=== PATIENT | female | born 1985 | race Caucasian/White ===

== ENCOUNTER 2023-01-29 13:39 | Outpatient (OUT) | payer BC, SELFPAY ==
[2023-01-30 06:15] LABS: HBsAg Screen Negative (Negative); HCV Antibody Non Reactive (Non Reactive); HIV Ab/p24 Ag Screen Non Reactive (Non Reactive); HSV 1 IgG, Type Spec <0.91 index (0.00-0.90); HSV 2 IgG, Type Spec <0.91 index (0.00-0.90)
[2023-01-30 12:09] LABS: Rapid Plasma Reagin, Quant Non Reactive (NonRea<1:1)
== END 2023-01-29 13:40 | disposition home or self-care (01) ==
PROVIDERS: PCP Family Medicine; Visit Provider Obstetrics & Gynecology
DX: Z20.2 Contact with and (suspected) exposure to infections with a predominantly sexual mode of transmission (principal)
CPT/HCPCS: 36415; 86592; 86695; 86696; 86803; 87340; 87389

== ENCOUNTER 2024-01-13 20:06 | Outpatient (REF) | payer BC, SELFPAY ==
[2024-01-20 16:10] LABS: Age Gdln ACOG Testing Note (.); HPV Aptima Positive (Negative); IGP, Aptima HPV, rfx 16/18,45 Note (.)
== END 2024-01-13 20:07 | disposition home or self-care (01) ==
LOC: LAB 20:06
PROVIDERS: PCP Family Medicine; Visit Provider Obstetrics & Gynecology
DX: Z01.419 Encounter for gynecological examination (general) (routine) without abnormal findings (principal)
CPT/HCPCS: 87624; 88175

== ENCOUNTER 2024-01-27 14:45 | Outpatient (OUT) | payer BC, SELFPAY ==
--- OUTSIDE RECORDS SUMMARY | 2024-01-27 15:10 | XMS_ITS | CCD ---
Author Organization [facility] Care Team Providers Care Trade Analyst Name Role Phone Salome Laughlin Unavailable Unavailable Salome Laughlin Unavailable Unavailable Mirian Ponce Unavailable Unavaila veronica Laughlin, Salome Delgado Attending Unavailable Kris, Mirian Landaverde Primary Care Unavaila Salome Vaz Attending Unavailable Mirian Ponce Primary Care Unavaila ble KODI, DR CAMERON Admitting Unavailable KARASIK, DR CAMERON Consulting Unavailable KARASIK, DR CAMERON Attending Unavailable PONCE, DR MIRIAN Ruiz Primary Care Unavailable KARASIK, DR CAMERON Consulting Unavailable KARASIK, DR CAMERON Attending Unavailable KARASIK, DR CAMERON Admitting Unavailable PONCE, DR MIRIAN Ruiz Primary Care Unavailable KARASIK, DR CAMERON Consulting Unavailable KARASIK, DR CAMERON Attending Unavailable KARASIJesica, DR CAMERON Admitting Unavailable KRIS, DR MIRIAN Ruiz Primary Care Unavailable KRIS, DR MIRIAN Ruiz Primary Care Unavailable ALLIE, DR ADAMARIS Wang Admitting Unavailable ALLIE, DR ADAMARIS Wang Consulting Unavailable ALLIE, DR ADAMARIS Wang Attending Unavailable Marielos Vega Attending Unavailable Mirian Ponce Unavailable MD Mirian Ponce Attending Provider Mirian Ponce Attending Unavailable Mirian Ponce Primary Care Unavailable Mirian Ponce Admitting Unavailable QUINN PAULSON Attending Unavailable Allergies Allergy Classification Reported Allergen(s) Allergy Type Date of Onset Reaction(s) Facility (1 source) No Known Medication Allergies; Translations: [No Known Medication Allergies] Propensity to adverse reactions (disorder) [facility] Repository Medications Current Medications Medication Drug Class(es) Dates Sig (Normalized) Sig (Original) fluconazole 150 mg oral tablet (1 source) Azole Antifungal take 1 tablet by mouth once Fluconazole 150 MG 1 tablet Orally once for 1 days Active levothyroxine sodium 0.05 mg oral tablet (2 sources) l-Thyroxine take 1 tablet by mouth every twenty-four hours Levothyroxine Sodium 50 MCG 1 tablet Orally Once a day for 90 days Active Susanna (2 sources) Susanna Active Problems Active Problems Problem Classification Problem Date Documented Date Episodic/Chronic Asthma (3 sources) Unspecified asthma, uncomplicated; Translations: [Exacerbation of intermittent asthma] Onset: 04-10-2021 Chronic Contraceptive and procreative management (2 sources) Surveillance of oral contraception done; Translations: [Encounter for surveillance of contraceptive pills] Episodic Hemorrhage during ; abruptio placenta; placenta previa (5 sources) Hemorrhage in early , unspecified; Translations: [Threatened miscarriage] Onset: 07-31-2017 Episodic Other complications of (2 sources) Supervision of high risk with poor obstetric history; Translations: [Supervision of with other poor reproductive or obstetric history, unspecified trimester] Episodic Other female genital disorders (2 sources) History of recurrent miscarriage - not ; Translations: [Recurrent loss] Episodic Other injuries and conditions due to external causes (2 sources) History of fall; Translations: [History of falling] Episodic Other nutritional; endocrine; and metabolic disorders (6 sources) Obese class II; Translations: [Body mass index (BMI) 37.0-37.9, adult] Onset: 10-30-2018 Resolved: 08-07-2020 Chronic Other and delivery including normal (8 sources) test positive; Translations: [Encounter for test, result positive] Onset: 11-16-2013 Resolved: 04-22-2018 Episodic Other upper respiratory infections (6 sources) Acute maxillary sinusitis; Translations: [Acute maxillary sinusitis, unspecified] Onset: 08-13-2016 Resolved: 07-23-2019 Episodic Residual codes; unclassified (2 sources) Complication occurring during ; Translations: [Personal history of other complications of , childbirth and the puerperium] Episodic Residual codes; unclassified (2 sources) Gestation period, 36 weeks; Translations: [36 weeks gestation of ] Episodic Residual codes; unclassified (2 sources) History of uterine scar from previous surgery; Translations: [History of uterine scar from previous surgery] Episodic Spontaneous (4 sources) Miscarriage without complication; Translations: [Complete or unspecified spontaneous without complication] Episodic Thyroid disorders (7 sources) Hypothyroidism, unspecified; Translations: [Hypothyroidism] Onset: 07-31-2017 Chronic Unclassified (2 sources) Encounter for fertility testing / Z31.41(ICD-10) Onset: 06-20-2017 Unclassified (1 source) Female infertility, unspecified / N97.9(ICD-10) Onset: 06-20-2017 Unclassified (1 source) Preg care for patient w recurrent preg loss, unsp trimester Onset: 08-14-2017 Unclassified (1 source) Oth disrd of amniotic fluid and membrns, first tri, unsp Onset: 08-14-2017 Unclassified (2 sources) abnormal result; Translations: [Other nonspecific abnormal finding] Unclassified (1 source) Encounter for screening for infections with a predominantly sexual mode of transmission; Translations: [Encounter for screening for infections with a predominantly sexual mode of transmission] Onset: 01-08-2023 Viral infection (4 sources) Verruca vulgaris; Translations: [Viral wart, unspecified] Onset: 03-11-2013 Resolved: 01-24-2021 Episodic Past or Other Problems Problem Classification Problem Date Documented Date Episodic/Chronic Allergic reactions (4 sources) Contact dermatitis; Translations: [Unspecified contact dermatitis due to other agents] Onset: 01-22-2017 Resolved: 07-22-2019 Episodic Bacterial infection; unspecified site (2 sources) Bacterial infectious disease; Translations: [Bacterial infection, unspecified, in conditions classified elsewhere and of unspecified site] Onset: 08-13-2016 Resolved: 07-22-2019 Episodic Cancer of cervix (2 sources) Cervicovaginal cytology: Low grade squamous intraepithelial lesion; Translations: [Low grade squamous intraepithelial lesion on cytologic smear of cervix (LGSIL)] Resolved: 09-01-2018 Episodic Diabetes mellitus without complication (2 sources) Abnormal glucose level; Translations: [Other abnormal glucose] Resolved: 04-22-2018 Episodic Diseases of mouth; excluding dental (4 sources) Diseases of lips; Translations: [DISEASES OF LIPS] Onset: 04-08-2021 Episodic Female infertility (2 sources) Female infertility; Translations: [Female infertility, unspecified] Resolved: 08-07-2020 Chronic Immunizations and screening for infectious disease (4 sources) Encounter for screening for human papillomavirus (HPV); Translations: [Sexually transmitted infectious disease] Onset: 01-31-2022 Resolved: 04-22-2018 Episodic Menstrual disorders (2 sources) Irregular periods; Translations: [Irregular menstrual cycle] Onset: 08-28-2006 Resolved: 08-03-2015 Chronic Other aftercare (1 source) Other ui developer (current) drug therapy; Translations: [OTH CONTACT ASSEMBLER CURRENT DRUG THERAPY] Onset: 04-10-2021 Episodic Other complications of (2 sources) Anemia of ; Translations: [Anemia complicating , second trimester] Resolved: 04-22-2018 Chronic Other complications of (2 sources) Diseases of the respiratory system complicating , third trimester; Translations: [Diseases of the respiratory system complicating , third trimester] Resolved: 04-22-2018 Episodic Other complications of (2 sources) Spotting per vagina in ; Translations: [Spotting complicating , unspecified trimester] Resolved: 04-22-2018 Episodic Other complications of (2 sources) Maternal care for excessive growth, unspecified trimester, not applicable or unspecified; Translations: [Maternal care for excessive growth, unspecified trimester, not applicable or unspecified] Resolved: 04-22-2018 Episodic Other complications of (4 sources) High risk ; Translations: [Supervision of high risk , unspecified, second trimester] Resolved: 04-22-2018 Episodic Other complications of (2 sources) care for patient with recurrent loss, third trimester; Translations: [ care for patient with recurrent loss, third trimester] Resolved: 04-22-2018 Episodic Other nutritional; endocrine; and metabolic disorders (2 sources) Morbid obesity; Translations: [Morbid (severe) obesity due to excess calories] Resolved: 05-06-2018 Chronic Other nutritional; endocrine; and metabolic disorders (2 sources) Obesity; Translations: [Obesity, unspecified] Resolved: 08-07-2020 Chronic Other screening for suspected conditions (not mental disorders or infectious disease) (8 sources) Encounter for screening for malignant neoplasm of cervix; Translations: [Urine test negative] Onset: 01-29-2022 Resolved: 07-22-2019 Episodic Other upper respiratory disease (2 sources) Allergic rhinitis; Translations: [Allergic rhinitis, unspecified] Resolved: 08-07-2020 Chronic Polyhydramnios and other problems of amniotic cavity (2 sources) Other specified disorders of amniotic fluid and membranes, first trimester, not applicable or unspecified; Translations: [Other specified disorders of amniotic fluid and membranes, first trimester, not applicable or unspecified] Resolved: 04-22-2018 Episodic Residual codes; unclassified (2 sources) Gestation period, 34 weeks; Translations: [34 weeks gestation of ] Resolved: 04-22-2018 Episodic Residual codes; unclassified (2 sources) Gestation period, 37 weeks; Translations: [37 weeks gestation of ] Resolved: 03-04-2018 Episodic Residual codes; unclassified (2 sources) Gestation period, 15 weeks; Translations: [15 weeks gestation of ] Resolved: 01-20-2018 Episodic Residual codes; unclassified (2 sources) Gestation period, 30 weeks; Translations: [30 weeks gestation of ] Resolved: 01-20-2018 Episodic Residual codes; unclassified (2 sources) Gestation period, 38 weeks; Translations: [38 weeks gestation of ] Resolved: 04-22-2018 Episodic Skin and subcutaneous tissue infections (4 sources) Abscess of axilla; Translations: [Cutaneous abscess of left axilla] Resolved: 08-07-2020 Episodic Spondylosis; intervertebral disc disorders; other back problems (2 sources) Low back pain; Translations: [Lumbago] Onset: 08-03-2015 Resolved: 07-22-2019 Episodic Unclassified (1 source) Encounter for fertility testing; Translations: [Encounter for fertility testing] Onset: 06-20-2017 Unclassified (2 sources) Contraception care education done; Translations: [General counseling for prescription of oral contraceptives] Onset: 02-08-2008 Results Test Name Value Interpretation Reference Range Facility Chlamydia/GC Amplificationon 01-08-2023 Chlamydia Trachomotis, ELOISE Negative Normal Negative [facility] Comment on above: Order Comment: SOURC E OF SPECIMEN: ORANGE APTIMA Performed By: #### G CCHLAMAMP, PAP [id number] #### [facility] , Neisseria Gonorrhoeae, ELOISE Negative Normal Negative [facility] Comment on above: Order Comment: SOURC E OF SPECIMEN: ORANGE APTIMA Result Comment: Perf ormed at: =G - [facility] [address] [id number] Global Engineering Manager: Pam Moss MD, Phone: [phone] PERFORMED BY: [facility] [address] [place] [address] PATHOLOGIST ROTATIONAL MOULDING OPERATOR LICO LARA M.D. Performed By: #### G CCHLAMAMP, PAP [id number] #### [facility] , IGP,Aptima HPV,Age Gdlnon PAP HPV Aptima Negative Normal Negative [facility] Comment on above: Order Comment: JAYCOB CTION TECHNIQUE:: BROOM-ALONE GYNOCOLOGICAL BODY SITE:: CERVIX ENDOCERVIX Result Comment: This nucleic acid amplification test detects fourteen high- risk HPV types (16,18,31,33,35,39,45,51,52,56,58,59,66,68) without differentiation. PERFORMED BY: [facility] [place]he[place] [address] PATHOLOGIST ROTATIONAL MOULDING OPERATOR LICO LARA M.D. Performed By: #### Concepcion CCHLAMAMP, PAP [id number] #### [facility] , Pap Image Guided Note Normal . [facility] Comment on above: Order Comment: JAYCOB CTSHAMA TECHNIQUE:: BROOM-ALONE GYNOCOLOGICAL BODY SITE:: CERVIX ENDOCERVIX Result Comment: TEST S RESULT FLAG UNITS REF RANGE LAB Clinician Provided Cytology Information Source.............Cervix;Endocervix No. of containers..01 ThinPrep Vial Age Algo ACOG Mar... FLAG LEGEND: L-Low Normal,H-High Normal,LL-Alert Low,HH-Alert High <-Panic Low,>-Panic High,A-Abnormal,AA-Critical Abnormal Performed at: 01 =G [facility] [place] [address] [place] [address] Pam Moss MD, Performed By: #### G CCHLAMAMP, PAP [id number] #### [facility] , Result Comment: TEST S RESULT FLAG UNITS REF RANGE LAB DIAGNOSIS: 02 NEGATIVE FOR INTRAEPITHELIAL LESION OR MALIGNANCY. FUNGAL ORGANISMS MORPHOLOGICALLY CONSISTENT WITH LETI SPECIES ARE PRESENT. Specimen adequacy: 02 Satisfactory for evaluation. No endocervical component is identified. Performed by: Beth Child, Packing Inspector ([facility]) . 02 Note: Note 02 The Pap smear is a screening test designed to aid in the detection of premalignant and malignant conditions of the uterine cervix. It is not a diagnostic procedure and should not be used as the sole means of detecting cervical cancer. Both false-positive and false-negative reports do occur. Test Methodology: Note 02 This liquid based ThinPrep(R) pap test was screened with the use of an image guided system. FLAG LEGEND: L-Low Normal,H-High Normal,LL-Alert Low,HH-Alert High <-Panic Low,>-Panic High,A-Abnormal,AA-Critical Abnormal Performed at: 02 WB [facility] [place] [address] [place], [place] [address] Pam Moss MD, THYR STIM IMMUNOGLOBULINon 1 Thyroid Sim Immunoglobulin <0.10 Normal 0.00-0.55 [facility] Comment on above: Performed By: #### T 3TOTAL #### [facility] [address] [place] [address] Dr. Maxwell Allen T3, TOTAL (TRIIODOTHYRONINE) on 03-19-2022 T3, TOTAL 119 ng/dL Normal 71-180 [facility] Comment on above: Performed By: #### T 3TOTAL #### [facility] [address] [place] [address] Dr. Maxwell Allen FREE T4on 03-18-2022 Free T4 [Mass/Vol] 0.96 ng/dL Normal 0.76-1.46 [facility] Comment on above: Performed By: #### F T4 #### [facility] [address] [place] [address] Dr. Maxwell Allen T4on 03-18-2022 T4 [Mass/Vol] 9.20 ug/dL Normal 4.80-13.90 [facility] Comment on above: Performed By: #### T 4, TSH #### [facility] [address] [place] [address] Dr. Maxwell Allen TSHon 03-18-2022 TSH 1.950 uIU/mL Normal 0.358-3.740 [facility] Comment on above: Performed By: #### T 4, TSH #### [facility] [address] [place] [address] Dr. Maxwell Allen THYROID-STIMULATING IMMUNOGL OBULINon 02-11-2022 Thyroid Sim Immunoglobulin <0.10 Normal 0.00-0.55 [facility] Comment on above: Performed By: #### T NAVA #### [facility] [address] [place] [address] Dr. Maxwell Allen T3, TOTAL (TRIIODOTHYRONINE) on 02-09-2022 T3, TOTAL 116 ng/dL Normal 71-180 [facility] Comment on above: Performed By: #### T 3TOTAL #### [facility] [address] [address] [address] Maxwell Allen T4 LABCORPon 02-09-2022 T4 [Mass/Vol] 7.8 ug/dL Normal 4.5-12.0 [facility] Comment on above: Performed By: #### T 4LC #### [facility] [address] [place] [address] Dr. Maxwell Allen FREE T4on 02-08-2022 Free T4 [Mass/Vol] 0.85 ng/dL Normal 0.76-1.46 [facility] Comment on above: Performed By: #### F T4 #### [facility] [address] [place] [address] Dr. Maxwell Allen TSHon 02-08-2022 TSH 4.142 uIU/mL Critically high 0.358-3.740 [facility] Comment on above: Performed By: #### T 3TOTAL #### [facility] [address] [place] [address] Dr. Maxwell Allen PAP ACOG PANEL 2: 30 to 65on 02-04-2022 . . Normal [facility] Comment on above: Result Comment: Perf ormed at: WB Performed By: #### [id number] #### [facility] [address] [place] [address] Dr. Maxwell Allen Age Gdln ACOG Testing 30-65 Normal [facility] Comment on above: Performed By: #### [id number] #### [facility] [address] [place] [address] Dr. Maxwell Allen DIAGNOSIS: Comment Normal [facility] Comment on above: Result Comment: NEGA TIVE FOR INTRAEPITHELIAL LESION OR MALIGNANCY. Performed at: WB Performed By: #### [id number] #### [facility] [address] [place] [address] Dr. Maxwell Allen HPV Aptima Negative Normal Negative [facility] Comment on above: Result Comment: This nucleic acid amplification test detects fourteen high-risk HPV types (16,18,31,33,35,39,45,51,52,56,58,59,66,68) without differentiation. Performed at: =G Performed By: #### 4 [id number] #### [facility] [address] [place] [address] Dr. Maxwell Allen Methodology: Comment Normal [facility] Comment on above: Result Comment: This liquid based ThinPrep(R) pap test was screened with the use of an image guided system. Performed at: WB Performed By: #### [id number] #### [facility] [address] [place] [address] Dr. Maxwell Allen Note: Comment Normal [facility] Comment on above: Result Comment: The Pap smear is a screening test designed to aid in the detection of premalignant and malignant conditions of the uterine cervix. It is not a diagnostic procedure and should not be used as the sole means of detecting cervical cancer. Both false-positive and false-negative reports do occur. . Performed at: WB Performed By: #### 4 [id number] #### [facility] [address] [place] [address] Dr. Maxwell Allen Performed by: Comment Normal [facility] Comment on above: Result Comment: Loreto Hayden, Packing Inspector ([facility]) Performed at: WB Performed By: #### 4 [id number] #### [facility] [address] [place] [address] Dr. Maxwell Allen Specimen adequacy: Comment Normal [facility] Comment on above: Result Comment: Sati sfactory for evaluation. Endocervical and/or squamous metaplastic cells (endocervical component) are present. Performed at: WB Performed By: #### [id number] #### [facility] [address] [place] [address] Dr. Maxwell Allen CBC AUTO DIFFon 04-08-2021 BASO # 0.1 103/ul Normal 0.0-0.1 [facility] Comment on above: Performed By: #### T 3TOTAL #### [facility] [address] [place] [address] Dr. Maxwell Allen Basophils/100 WBC (Bld) 0.5 % Normal 0.2-2.0 [facility] Comment on above: Performed By: #### T 3TOTAL #### [facility] [address] [place] [address] Dr. Maxwell Allen EO # 0.2 103/ul Normal 0.0-0.7 [facility] Comment on above: Performed By: #### T 3TOTAL #### [facility] [address] [place] [address] Dr. Maxwell Allen Eosinophils/100 WBC (Bld) 1.3 % Normal 0.9-7.0 [facility] Comment on above: Performed By: #### T 3TOTAL #### [facility] [address] [place] [address] Dr. Maxwell Allen Erythrocyte distribution width (RBC) [Ratio] 14.7 % Normal 11.0-15.0 [facility] Comment on above: Performed By: #### T 3TOTAL #### [facility] [address] [place] [address] Dr. Maxwell Allen Hematocrit (Bld) [Volume fraction] 38.1 % Normal 36.0-48.0 [facility] Comment on above: Performed By: #### T 3TOTAL #### [facility] [address] [place] [address] Dr. Maxwell Allen Hemoglobin (Bld) [Mass/Vol] 11.8 g/dL Critically low 12.0-16.0 [facility] Comment on above: Performed By: #### T 3TOTAL #### [facility] [address] [place] [address] Dr. Maxwell Allen IG # 0.03 10e3/ul Normal 0.00-0.03 [facility] Comment on above: Performed By: #### T 3TOTAL #### [facility] [address] [place] [address] Dr. Maxwell Allen IG % 0.3 % Normal 0.0-0.5 [facility] Comment on above: Performed By: #### T 3TOTAL #### [facility] [address] [place] [address] Dr. Maxwell Allen LYMPH # 1.5 103/ul Normal 1.2-3.8 [facility] Comment on above: Performed By: #### T 3TOTAL #### [facility] [address] [address] [address] Maxwell Allen Lymphocytes/100 WBC (Bld) 13.0 % Critically low 20.5-60.0 [facility] Comment on above: Performed By: #### T 3TOTAL #### [facility] [address] [address] [address] Maxwell Allen MANUAL DIFF REQ NO Normal [facility] Comment on above: Performed By: #### T 3TOTAL #### [facility] [address] [place] [address] Dr. Maxwell Allen MCH (RBC) [Entitic mass] 25.2 pg Critically low 26.7-34.0 [facility] Comment on above: Performed By: #### T 3TOTAL #### [facility] [address] [place] [address] Dr. Maxwell Allen MCHC (RBC) [Mass/Vol] 31.0 g/dL Normal 29.9-35.2 [facility] Comment on above: Performed By: #### T 3TOTAL #### [facility] [address] [place] [address] Dr. Maxwell Allen MCV (RBC) [Entitic vol] 81.2 fL Normal 81.0-99.0 [facility] Comment on above: Performed By: #### T 3TOTAL #### [facility] [address] [place] [address] Dr. Maxwell Allen MONO # 1.0 103/ul Critically high 0.3-0.8 [facility] Comment on above: Performed By: #### T 3TOTAL #### [facility] [address] [place] [address] Dr. Maxwell Allen Monocytes/100 WBC (Bld) 8.7 % Normal 1.7-12.0 [facility] Comment on above: Performed By: #### T 3TOTAL #### [facility] [address] [place] [address] Dr. Maxwell Allen NEUT # 8.5 103/ul Critically high 1.4-6.5 [facility] Comment on above: Performed By: #### T 3TOTAL #### [facility] [address] [address] [address] Maxwell Allen Neutrophils/100 WBC (Bld) 76.2 % Critically high 43.0-75.0 [facility] Comment on above: Performed By: #### T 3TOTAL #### [facility] [address] [address] [address] Maxwell Allen Platelet mean volume (Bld) [Entitic vol] 9.6 fL Normal 9.5-13.5 [facility] Comment on above: Performed By: #### T 3TOTAL #### [facility] [address] [place] [address] Dr. Maxwell Allen PLT 267 103/ul Normal 150-450 [facility] Comment on above: Performed By: #### T 3TOTAL #### [facility] [address] [place] [address] Dr. Maxwell Allen RBC 4.69 106/ul Normal 4.20-5.40 [facility] Comment on above: Performed By: #### T 3TOTAL #### [facility] [address] [address] [address] Maxwell Allen WBC 11.2 103/ul Critically high 4.0-11.0 [facility] Comment on above: Performed By: #### T 3TOTAL #### [facility] [address] [place] [address] Dr. Maxwell Allen CULTURE BLOODon 04-08-2021 Microscopic examination of blood, culture Culture Observations: NO GROWTH AT 5 DAYS. Normal [facility] Comment on above: Performed By: #### B [id number] #### [facility] [address] [place] [address] Dr. Maxwell Allen PROF 14(COMP METB)on 021 Albumin [Mass/Vol] 3.5 g/dL Normal 3.5-5.0 [facility] Comment on above: Performed By: #### T 3TOTAL #### [facility] [address] [place] [address] Dr. Maxwell Allen Albumin/Globulin [Mass ratio] 0.9 {ratio} Normal [facility] Comment on above: Performed By: #### T 3TOTAL #### [facility] [address] [place] [address] Dr. aMxwell Allen ALP [Catalytic activity/Vol] 59 U/L Normal 38-126 [facility] Comment on above: Performed By: #### T 3TOTAL #### [facility] [address] [place] [address] Dr. Maxwell Allen ALT [Catalytic activity/Vol] 31 U/L Normal 9-52 [facility] Comment on above: Performed By: #### T 3TOTAL #### [facility] [address] [place] [address] Dr. Maxwell Allen Anion gap [Moles/Vol] 10.6 mmol/L Normal [facility] Comment on above: Performed By: #### T 3TOTAL #### [facility] [address] [place] [address] Dr. Maxwell Allen AST [Catalytic activity/Vol] 14 U/L Normal 14-36 [facility] Comment on above: Performed By: #### T 3TOTAL #### [facility] [address] [place] [address] Dr. Maxwell Allen Bilirubin [Mass/Vol] 0.5 mg/dL Normal 0.2-1.3 [facility] Comment on above: Performed By: #### T 3TOTAL #### [facility] [address] [place] [address] Dr. Maxwell Allen Calcium [Mass/Vol] 8.9 mg/dL Normal 8.4-10.2 [facility] Comment on above: Performed By: #### T 3TOTAL #### [facility] [address] [place] [address] Dr. Maxwell Allen Chloride [Moles/Vol] 103 mmol/L Normal 98-107 [facility] Comment on above: Performed By: #### T 3TOTAL #### [facility] [address] [place] [address] Dr. Maxwell Allen CO2 [Moles/Vol] 27.2 mmol/L Normal 22.0-30.0 [facility] Comment on above: Performed By: #### T 3TOTAL #### [facility] [address] [address] [address] Maxwell Allen Creatinine [Mass/Vol] 0.72 mg/dL Normal 0.52-1.04 [facility] Comment on above: Performed By: #### T 3TOTAL #### [facility] [address] [address] [address] Maxwell Allen EGFR-AF LUXEMBOURGER >60 Normal >=60 [facility] Comment on above: Performed By: #### T 3TOTAL #### [facility] [address] [address] [address] Maxwell Allen EGFR-NON AF LUXEMBOURGER >60 Normal >=60 [facility] Comment on above: Performed By: #### T 3TOTAL #### [facility] [address] [place] [address] Dr. Maxwell Allen Globulin (S) [Mass/Vol] 3.9 g/dL Normal [facility] Comment on above: Performed By: #### T 3TOTAL #### [facility] [address] [address] [address] Maxwell Allen Glucose [Mass/Vol] 122 mg/dL Critically high 74-[address] [facility] Comment on above: Performed By: #### T 3TOTAL #### [facility] [address] [place] [address] Dr. Maxwell Allen Potassium [Moles/Vol] 3.8 mmol/L Normal 3.4-5.0 [facility] Comment on above: Performed By: #### T 3TOTAL #### [facility] [address] [address] [address] Maxwell Allen Protein [Mass/Vol] 7.4 g/dL Normal 6.1-8.2 [facility] Comment on above: Performed By: #### T 3TOTAL #### [facility] [address] [address] [address] Maxwell Allen Sodium [Moles/Vol] 137 mmol/L Normal 137-145 [facility] Comment on above: Performed By: #### T 3TOTAL #### [facility] [address] [place], [place] [address] Dr. Maxwell Allen Urea nitrogen [Mass/Vol] 10.0 mg/dL Normal 7.0-17.0 [facility] Comment on above: Performed By: #### T 3TOTAL #### [facility] [address] [place], [place] [address] Dr. Maxwell Allen Urea nitrogen/Creatinine [Mass ratio] 13.9 mg/mg Normal [facility] Comment on above: Performed By: #### T 3TOTAL #### [facility] [address] [place], [place] [address] Dr. Maxwell Allen TSHon 07-31-2017 Thyrotropin Qn 2.88 m[IU]/L Normal 0.44 - 3.98 [facility] Comment on above: Result Comment: TSH testing is performed using different testing methodology at [facility] than at other [facility]. Direct result comparisons should only be made within the same method. . Patients receiving more than 5 mg/day of biotin may have interference in test results. A sample should be taken no sooner than eight hours after previous dose. Contact [phone] for additional information. Performed By: #### T SH2 #### [facility] [address] [place] [address] Vital Signs Date Time Vital Sign Value Performing Clinician Facility 01-08-2023 10:00-0400 Body height 157.48 cm Mirian Ponce Other [facility] Other 01-08-2023 10:00-0400 Body mass index (BMI) [Ratio] 36.03 kg/m2 Mirian Ponce Other [facility] Other 01-08-2023 10:00-0400 Body weight 89.36 kg Mirian Ponce Other [facility] Other 01-08-2023 10:00-0400 Diastolic blood pressure 72 mm[Hg] Mirian Ponce Other [facility] Other 01-08-2023 10:00-0400 Systolic blood pressure 128 mm[Hg] Mirian Ponce Other [facility] Other Encounters Encounter Date Encounter Type Care Provider Facility Start: 01-13-2024 End: 01-13-2024 ambulatory QUINN PAULSON Not Available Start: 01-30-2023 End: 01-30-2023 ambulatory Mirian Ponce Other [facility] Other Start: 01-30-2023 Telephone encounter Mirian Ponce [facility] Start: 01-08-2023 Encounter for genera l adult medical examination without abnormal findings Mirian Ponce [facility] Start: 01-08-2023 Encounter for gynecological examination (general) (routine) without abnormal findings Mirian Ponce [facility] Start: 01-08-2023 Periodic preventive med est patient 18-39 yrs Mirian Ponce [facility] Start: 01-08-2023 End: 01-08-2023 ambulatory Mirian Ponce [facility] Other Start: 01-08-2023 End: 01-08-2023 Departed Referred MD Mirian Ponce Work Phone: [facility] Work Phone: Start: 01-07-2023 ambulatory Marielos Vega Facility: [facility] Start: 12-10-2022 ambulatory Marielos Vega Facility:[facility] Start: 03-18-2022 End: 03-19-[address] NISHA MARIEE Facility:[facility] Start: 02-08-2022 End: 02-09-[address] NISHA MARIEE Facility:[facility] Start: 01-29-2022 End: 01-29-[address] NISHA MARIEE Facility:[facility] Start: 01-29-2022 Gynecological examin ation normal Mirian Ponce Other [facility] Other Start: 04-08-2021 End: 04-08-[address] MIRIAN PONCE Facility:[facility] Start: 01-22-2021 Adult health examination Johanny Ponce Other [facility] Other Start: 08-14-2017 Patient encounter procedure Salome Laughlin Facility:[facility] Travis Machado Start: 07-31-2017 Patient encounter procedure Salome Laughlin Facility:[facility] Ary Jeannette Start: 06-20-2017 Ambulatory Salome Laughlin Facil ity:[facility] Procedures Date Procedure Procedure Detail Performing Clinician Start: 02-08-2008 Contraception care education Mirian Ponce Other End: 04-22-2018 screening Mirian Ponce Other Counseling Mirian Ponce Other End: 08-07-2020 Depression screening Mirian Ponce Other Family planning education Barry Ponce Other End: 05-06-2018 visit Mirian Ponce Other Plan of Treatment Date Care Activity Detail Author Start: 01-08-2023 [facility] Human papilloma viru s 16+18+31+33+35+39+45+51+52+56+58 +59+66+68 DNA [Presence] in Cervix by Probe with signal amplification [facility] Payers Date Payer Category Payer Self-pay 2022 Unknown [id number] 2019 Unknown [id number] 1984 Unknown [id number] .. [id number] 1984 Unknown [id number] 1984 Unknown [id number] 1984 Unknown [id number] 07.11.84 [id number] 1984 Unknown [id number] .. [id number] 1984 Unknown [id number] 2.16.84 [id number] 1984 Unknown [id number] 2.16.8 [id number] 1984 Unknown [id number] 2.16.84 [id number] Unknown [id number] Unknown [id number] 2.16.8 [id number] Social History Date Type Detail Facility Sex Assigned At [facility] Other Start: 1985 Sex Assigned At Female [facility] Evaluation note 01-08-2023 Note Date & Type Note Facility 01-08-2023 Evaluation note Encounter Date Diagnosis Assessment Notes Dec, Encounter for gynecological examination without abnormal finding (ICD-10 - Z01.419) Clinical impressions discussed. Monthly SBE advised along with yearly mammograms. Colon and osteoporosis screening reviewed and ordered if indicated (see preventative tab below). I will contact pt. with the results of her pap testing and arrange follow up based on the results. All questions answered to her satisfaction and patient sent home stable Dec, Screening for STD (sexually transmitted disease) (ICD-10 - Z11.3) Dec, Wellness examination (ICD-10 - Z00.00) [facility] Other Evaluation note Note Date & Type Note Facility [facility] Evaluation note Note Date & Type Note Facility Evaluation note No Information [facility] Other History general Narrative - Reported Note Date & Type Note Facility History general Narrative - Reported Type Medical History Adult hypothyroidism Medical History HPV in female Medical History Bronchitis Medical History Asthma, intermittent with acute exacerbation Medical History Acute URI Surgical History Hospitalization History SEE SURGICAL HX [facility] Other Summary Purpose Family History No Family History Records FoundNo Family History Records FoundNo Family History Records FoundNo Family History Records FoundNo Family History Records FoundNo Family History Records Found Advance Directives No Advanced Directives Records FoundNo Advanced Directives Records FoundNo Advanced Directives Records FoundNo Advanced Directives Records FoundNo Advanced Directives Records FoundNo Advanced Directives Records Found Additional Source Comments INFORMATION SOURCE (unrecogn ized section and content) DATE CREATED AUTHOR 11/17/2017 [facility] DATE CREATED AUTHOR AUTHOR'S ORGANIZ ATION 07/06/[address] [facility] DATE CREATED AUTHOR AUTHOR'S ORGANIZ ATION 03/24/2022 [facility] DATE CREATED AUTHOR AUTHOR'S ORGANIZ ATION 12/11/2022 Ru Major[facility] DATE CREATED AUTHOR AUTHOR'S ORGANIZ ATION 01/18/2023 [facility] DATE CREATED AUTHOR AUTHOR'S ORGANIZ ATION 01/14/2024 [facility] EPIC REASON FOR VISIT (unrecogniz ed section and content) Wellness/PAP ExamNo Informat ion Care Teams (unrecognized sec tion and content) Team Status: Inactive Member Role Status Dates Mirian Ponce MD Attending Provider Active Goals (unrecognized section and content) Goals may be documented in a n alternate section FOR RECORDS PERTAINING TO PATIENTS WHO ARE OR HAVE BEEN ENROLLED IN A CHEMICAL DEPENDENCY/SUBSTANCEABUSE PROGRAM, SOME INFORMATION MAY BE OMITTED. This clinical summary was aggregated from multiple sources. Caution should be exercised in using it in the provision of clinical care. This summary normalizes information from multiple sources, and as a consequence, information in this document may materially change the coding, format and clinical context of patient data. In addition, data may be omitted in some cases. CLINICAL DECISIONS SHOULD BE BASED ON THE PRIMARY CLINICAL RECORDS. [employer] provides no warranty or guarantee of the accuracy or completeness of information in this document.
[2024-01-28 05:09] LABS: HIV Ab/p24 Ag Screen Non Reactive (Non Reactive)
[2024-01-28 06:10] LABS: HBsAg Screen Negative (Negative)
[2024-01-28 11:09] LABS: Rapid Plasma Reagin, Quant Non Reactive titer (NonRea<1:1)
== END 2024-01-27 14:46 | disposition home or self-care (01) ==
LOC: LAB 14:45
PROVIDERS: PCP Family Medicine; Visit Provider Obstetrics & Gynecology
DX: Z20.2 Contact with and (suspected) exposure to infections with a predominantly sexual mode of transmission (principal)
CPT/HCPCS: 36415; 86592; 87340; 87389

== ENCOUNTER 2024-02-02 09:05 | Outpatient (REF) | payer BC, SELFPAY ==
--- OUTSIDE RECORDS SUMMARY | 2024-02-11 09:20 | XMS_ITS | CCD ---
Author Organization [facility] Care Team Providers Care Segment Block Layer Name Role Phone Salome Laughlin Unavailable Unavailable Salome Laughlin Unavailable Unavailable Mirian Ponce Unavailable Unavaila vreonica Laughlin, Salome Delgado Attending Unavailable Kris, Mirian Landaverde Primary Care Unavaila Salome Vaz Attending Unavailable Kris, Mirian Landaverde Primary Care Unavaila ble KARDEMETRIA, DR CAMERON Admitting Unavailable KARASIK, DR CAMERON Consulting Unavailable KARASIK, DR CAMERON Attending Unavailable PONCE, DR MIRIAN Ruiz Primary Care Unavailable KARASIK, DR CAMERON Consulting Unavailable KARASIK, DR CAMEORN Attending Unavailable KARASIK, DR CAMERON Admitting Unavailable PONCE, DR MIRIAN Ruiz Primary Care Unavailable KARASIK, DR CAMERON Consulting Unavailable KARASIK, DR CAMERON Attending Unavailable KARASIK, DR CAMERON Admitting Unavailable KRIS, DR MIRIAN Ruiz Primary Care Unavailable KRIS, DR MIRIAN Ruiz Primary Care Unavailable ALLIE, DR ADAMARIS Wang Admitting Unavailable ALLIE, DR ADAMARIS Wang Consulting Unavailable ALLIE, DR ADAMARIS Wang Attending Unavailable Marielos Vega Attending Unavailable Mirian Ponce Unavailable MD Mirian Ponce Attending Provider QUINN CANSECO Attending Unavailable QUINN CANSECO Attending Unavailable DO Quinn Canseco Attending Provider Quinn Canseco Attending Unavailable Quinn Canseco Admitting Unavailable Allergies Allergy Classification Reported Allergen(s) Allergy Type Date of Onset Reaction(s) Facility (1 source) No Known Medication Allergies; Translations: [No Known Medication Allergies] Propensity to adverse reactions (disorder) [facility] Repository Medications Current Medications Medication Drug Class(es) Dates Sig (Normalized) Sig (Original) fluconazole 150 mg oral tablet (1 source) Azole Antifungal take 1 tablet by mouth once Fluconazole 150 MG 1 tablet Orally once for 1 days Active levothyroxine sodium 0.05 mg oral tablet (4 sources) l-Thyroxine Start: 07-30-2023 End: 07-30-2023 take 50 ug by mouth once daily Levothyroxine Active 50 MCG PO Daily July 30, 2023 10:32am take 1 tablet by bebeto th every twenty-four hours Levothyroxine Sodium 50 MCG [...] abnormal result; Translations: [Other nonspecific abnormal finding] Viral infection (4 sources) Verruca vulgaris; Translations: [...] 08-03-2015 Chronic Other aftercare (1 source) 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; Translations: [OTH FDC CURRENT DRUG THERAPY] Onset: 04-10-2021 Episodic Other [...] Test Name Value Interpretation Reference Range Facility HBV surface Ag IA Qlon 01-26 Hepatitis B Surface Antigen Negative Negative [facility] Comment on above: Performed at: [employer] [address] [id number] Director: Christophe Moreno PhD, Phone: [phone] Performed at: [employer] [place] [address] [id number] Director: Christophe Moreno PhD, Phone: [phone] HIV 1 and HIV-2 antibody ass ay with HIV-1 p24 antigen detectionon 01-27-2024 HIV 1+2 Ab+HIV1 p24 Ag IA Ql Non-Reactive Non Reactive [facility] Comment on above: HIV-1/HIV-2 antibodi es and HIV-1 p24 antigen were NOTdetected. There is no laboratory evidence of HIV infection.HIV NegativePerformed at: [address] [id number] Director: Christophe Moreno PhD, Phone: [phone] No Panel Informationon 01-26 RPR Quantitative Confirmation Non Reactive titer NonRea<1:1 [facility] Comment on above: Please Note: This te st does not meet current guidelines forscreening and diagnosis of syphilis. This test isintended for following treatment response in patients beingtreated for syphilis infection. To screen for syphilisinfection, a reflex cascade that includes both RPR and atreponema-specific assay should be utilized, such asTreponema pallidum (Syphilis) Screening [place] (757113) orRapid Plasma Reagin (RPR) Test With Reflex to QuantitativeRPR and Confirmatory Treponema pallidum Antibodies(002426).Performed at: [address] [id number] Director: Christophe Moreno PhD, Phone: [phone] Human papilloma virus 16+18+ 31+33+35+39+45+51+52+56+58+59+66+68 DNA [Presence] in [place] 01-13-2024 HPV 16+18+31+33+35+39+45+ 51+52+56+58+59+66+68 DNA Probe+sig amp Ql (Cvx) Positive Abnormal Negative [facility] Comment on above: This nucleic acid am plification test detects fourteen high- risk HPV types (16,18,31,33,35,39,45,51,52,56,58,59,66,68)without differentiation.Performed at: =[address] [id number] Director: Pam Moss MD, Phone: [phone] at: [address] [id number] Director: Pam Moss MD, Phone: [phone] No Panel Informationon 01-12 HPV High Risk Other Comment Note Abnormal . [facility] Comment on above: TESTS RESULT FLAG UN ITS REF RANGE LAB D IAGNOSIS: [A] 02 EPITHELIAL CELL ABNORMALITY. ATYPICAL SQUAMOUS CELLS OF UNDETERMINED SIGNIFICANCE (ASC-US).Specimen adequacy: 02 Satisfactory for evaluation. Endocervical and/or squamous metaplastic cells (endocervical component) are present.Performed by: 03 Luis Tinajero, Dieing Out Machine Operator (ASCP)Electronically si... 02 Hanane Lares MD, Pathologist. 02Pathologist ICD10: 02 R87.610Note: Note 02 The Pap smear is a screening test designed to aid in the detection of premalignant and malignant conditions of the uterine cervix. It is not a diagnostic procedure and should not be used as the sole means of detecting cervical cancer. Both false-positive and false-negative reports do occur.Test Methodology: Note 02 This liquid based ThinPrep(R) pap test was screened with the use of an image guided system.HPV Genotype Reflex Note 02 Criteria not met, HPV Genotype not performed. ------ FLAG LEGEND: L-Low Normal,H-High Normal,LL-Alert Low,HH-Alert High <-Panic Low,>-Panic High,A-Abnormal,AA-Critical Abnormal ----Performed at:02 [facility] [address] [place] [address] Pam Moss MD, 03 [facility] [address] [place] [address] Michael Smith MD, Reference Lab Test Patient Age Note . [facility] Comment on above: TESTS RESULT FLAG UN ITS REF RANGE LAB Clinician Provided Cytology Information Source.............Cervix;Endocervix No. of containers..01 ThinPrep VialAge Algo ACOG Mar... FLAG LEGEND: L-Low Normal,H-High Normal,LL-Alert Low,HH-Alert High <-Panic Low,>-Panic High,A-Abnormal,AA-Critical Abnormal ----Performed at:01 =G [address] [address] Pam Moss MD, THYR STIM IMMUNOGLOBULINon 1 Thyroid Sim Immunoglobulin <0.10 Normal 0.00-0.55 [facility] Comment on above: Performed By: #### T 3TOTAL #### [facility] [address] [place], [place] [address] Dr. Maxwell Allen T3, TOTAL (TRIIODOTHYRONINE) on 03-19-2022 T3, TOTAL 119 ng/dL Normal 71-180 [facility] Comment on above: Performed By: #### T 3TOTAL #### [facility] [address] [place], [place] [address] Dr. Maxwell Allen FREE T4on 03-18-2022 Free T4 [Mass/Vol] 0.96 ng/dL Normal 0.76-1.46 [facility] Comment on above: Performed By: #### F T4 #### [facility] [address] [place] [address] Dr. Maxwell Allen T4on 03-18-2022 T4 [Mass/Vol] 9.20 ug/dL Normal 4.80-13.90 [facility] Comment on above: Performed By: #### T 4, TSH #### [facility] [address] [place] [address] Dr. Maxwell Allen TSHon 03-18-2022 TSH 1.950 uIU/mL Normal 0.358-3.740 [facility] Comment on above: Performed By: #### T 4, TSH #### [facility] [address] [place] [address] Dr. Maxwell Allen THYROID-STIMULATING IMMUNOGL OBULINon 02-11-2022 Thyroid Sim Immunoglobulin <0.10 Normal 0.00-0.55 [facility] Comment on above: Performed By: #### T NAVA #### [facility] [address] [place] [address] Dr. Maxwell Allen T3, TOTAL (TRIIODOTHYRONINE) on 02-09-2022 T3, TOTAL 116 ng/dL Normal 71-180 [facility] Comment on above: Performed By: #### T 3TOTAL #### [facility] [address] [place] [address] Dr. Maxwell Allen T4 LABCORPon 02-09-2022 T4 [Mass/Vol] 7.8 ug/dL Normal 4.5-12.0 [facility] Comment on above: Performed By: #### T 4LC #### [facility] [address] [place] [address] Dr. Maxwell Allen FREE T4on 02-08-2022 Free T4 [Mass/Vol] 0.85 ng/dL Normal 0.76-1.46 [facility] Comment on above: Performed By: #### F T4 #### [facility] [address] [place] [address] [address] Maxwell Allen TSHon 02-08-2022 TSH 4.142 uIU/mL Critically high 0.358-3.740 [facility] Comment on above: Performed By: #### T 3TOTAL #### [facility] [address] [place] [address] Dr. Maxwell Allen PAP ACOG PANEL 2: 30 to 65on 02-04-2022 . . Normal [facility] Comment on above: Result Comment: Perf ormed at: WB Performed By: #### 4 [id number] #### [facility] [address] [place] [address] Dr. Maxwell Allen Age Gdln ACOG Testing 30-65 [facility] Comment on above: Performed By: #### 4 [id number] #### [facility] [address] [place] [address] Dr. Maxwell Allen DIAGNOSIS: Comment Normal [facility] Comment on above: Result Comment: NEGA TIVE FOR INTRAEPITHELIAL LESION OR MALIGNANCY. Performed at: WB Performed By: #### 4 [id number] #### [facility] [address] [place] [address] Dr. Maxwell Allen HPV Aptima Negative Normal Negative [facility] Comment on above: Result Comment: This nucleic acid amplification test detects fourteen high-risk HPV types (16,18,31,33,35,39,45,51,52,56,58,59,66,68) without differentiation. Performed at: =G Performed By: #### 4 [id number] #### [facility] [address] [place] [address] Dr. Maxwell Allen Methodology: Comment [facility] Comment on above: Result Comment: This liquid based ThinPrep(R) pap test was screened with the use of an image guided system. Performed at: WB Performed By: #### 4 [id number] #### [facility] [address] [place] [address] Dr. Maxwell Allen Note: Comment Normal [facility] Comment on above: Result Comment: The Pap smear is a screening test designed to aid in the detection of premalignant and malignant conditions of the uterine cervix. It is not a diagnostic procedure and should not be used as the sole means of detecting cervical cancer. Both false-positive and false-negative reports do occur. . Performed at: WB Performed By: #### 4 [id number] #### [facility] [address] [place] [address] Dr. Maxwell Allen Performed by: Comment Normal [facility] Comment on above: Result Comment: Loreto Hayden, Dieing Out Machine Operator (ASCP) Performed at: WB Performed By: #### 4 [id number] #### [facility] [address] [place] [address] Dr. Maxwell Allen Specimen adequacy: Comment Normal [facility] Comment on above: Result Comment: Sati sfactory for evaluation. Endocervical and/or squamous metaplastic cells (endocervical component) are present. Performed at: WB Performed By: #### 4 [id number] #### [facility] [address] [place] [address] Dr. Maxwell Allen CBC AUTO DIFFon 04-08-2021 BASO # 0.1 103/ul Normal 0.0-0.1 [facility] Comment on above: Performed By: #### T 3TOTAL #### [facility] [address] [place] [address] Dr. Maxwell Allen Basophils/100 WBC (Bld) 0.5 % Normal 0.2-2.0 [facility] Comment on above: Performed By: #### T 3TOTAL #### [facility] [address] [place] [address] Dr. Maxwell Allen EO # 0.2 103/ul Normal 0.0-0.7 [facility] Comment on above: Performed By: #### T 3TOTAL #### [facility] [address] [place] [address] Dr. Maxwell Allen Eosinophils/100 WBC (Bld) 1.3 % Normal 0.9-7.0 [facility] Comment on above: Performed By: #### T 3TOTAL #### [facility] [address] [place] [address] Dr. Maxwell Allen Erythrocyte distribution width (RBC) [Ratio] 14.7 % Normal 11.0-15.0 [facility] Comment on above: Performed By: #### T 3TOTAL #### [facility] [address] [place] [address] Dr. Maxwell Allen Hematocrit (Bld) [Volume fraction] 38.1 % Normal 36.0-48.0 [facility] Comment on above: Performed By: #### T 3TOTAL #### [facility] [address] [place] [address] Dr. Maxwell Allen Hemoglobin (Bld) [Mass/Vol] 11.8 g/dL Critically low 12.0-16.0 [facility] Comment on above: Performed By: #### T 3TOTAL #### [facility] [address] [place] [address] Dr. Maxwell Allen IG # 0.03 10e3/ul Normal 0.00-0.03 [facility] Comment on above: Performed By: #### T 3TOTAL #### [facility] [address] [place] [address] Dr. Maxwell Allen IG % 0.3 % Normal 0.0-0.5 [facility] Comment on above: Performed By: #### T 3TOTAL #### [facility] [address] [place] [address] Dr. Maxwell Allen LYMPH # 1.5 103/ul Normal 1.2-3.8 [facility] Comment on above: Performed By: #### T 3TOTAL #### [facility] [address] [place] [address] Dr. Maxwell Allen Lymphocytes/100 WBC (Bld) 13.0 % Critically low 20.5-60.0 [facility] Comment on above: Performed By: #### T 3TOTAL #### [facility] [address] [place] [address] Dr. Maxwell Allen MANUAL DIFF REQ NO Normal [facility] Comment on above: Performed By: #### T 3TOTAL #### [facility] [address] [place] [address] Dr. Maxwell Allen MCH (RBC) [Entitic mass] 25.2 pg Critically low 26.7-34.0 [facility] Comment on above: Performed By: #### T 3TOTAL #### [facility] [address] [place] [address] Dr. Maxwell Allen MCHC (RBC) [Mass/Vol] 31.0 g/dL Normal 29.9-35.2 [facility] Comment on above: Performed By: #### T 3TOTAL #### [facility] [address] [place] [address] Dr. Maxwell Allen MCV (RBC) [Entitic vol] 81.2 fL Normal 81.0-99.0 [facility] Comment on above: Performed By: #### T 3TOTAL #### [facility] [address] [place] [address] Dr. Maxwell Allen MONO # 1.0 103/ul Critically high 0.3-0.8 [facility] Comment on above: Performed By: #### T 3TOTAL #### [facility] [address] [place] [address] Dr. Maxwell Allen Monocytes/100 WBC (Bld) 8.7 % Normal 1.7-12.0 [facility] Comment on above: Performed By: #### T 3TOTAL #### [facility] [address] [place] [address] Dr. Maxwell Allen NEUT # 8.5 103/ul Critically high 1.4-6.5 [facility] Comment on above: Performed By: #### T 3TOTAL #### [facility] [address] [place] [address] Dr. Maxwell Allen Neutrophils/100 WBC (Bld) 76.2 % Critically high 43.0-75.0 [facility] Comment on above: Performed By: #### T 3TOTAL #### [facility] [address] [place] [address] Dr. Maxwell Allen Platelet mean volume (Bld) [Entitic vol] 9.6 fL Normal 9.5-13.5 [facility] Comment on above: Performed By: #### T 3TOTAL #### [facility] [address] [place] [address] Dr. Maxwell Allen PLT 267 103/ul Normal 150-450 [facility] Comment on above: Performed By: #### T 3TOTAL #### [facility] [address] [place] [address] Dr. Maxwell Allen RBC 4.69 106/ul Normal 4.20-5.40 [facility] Comment on above: Performed By: #### T 3TOTAL #### [facility] [address] [place] [address] Dr. Maxwell Allen WBC 11.2 103/ul Critically high 4.0-11.0 [facility] Comment on above: Performed By: #### T 3TOTAL #### [facility] [address] [place] [address] Dr. Maxwell Allen CULTURE BLOODon 04-08-2021 Microscopic examination of blood, culture Culture Observations: NO GROWTH AT 5 DAYS. Normal [facility] Comment on above: Performed By: #### B [id number] #### [facility] [address] [place] [address] Dr. Maxwell Allen PROF 14(COMP METB)on 021 Albumin [Mass/Vol] 3.5 g/dL Normal 3.5-5.0 [facility] Comment on above: Performed By: #### T 3TOTAL #### [facility] [address] [place] [address] Dr. Maxwell Allen Albumin/Globulin [Mass ratio] 0.9 {ratio} Normal [facility] Comment on above: Performed By: #### T 3TOTAL #### [facility] [address] [place] [address] Dr. Maxwell Allen ALP [Catalytic activity/Vol] 59 U/L Normal 38-126 [facility] Comment on above: Performed By: #### T 3TOTAL #### [facility] [address] [place] [address] Dr. Maxwell Allen ALT [Catalytic activity/Vol] 31 U/L Normal 9-52 [facility] Comment on above: Performed By: #### T 3TOTAL #### [facility] [address] [place] [address] Dr. Maxwell Allen Anion gap [Moles/Vol] 10.6 mmol/L Normal [facility] Comment on above: Performed By: #### T 3TOTAL #### [facility] [address] [place] [address] [address] Maxwell Allen AST [Catalytic activity/Vol] 14 U/L Normal 14-36 [facility] Comment on above: Performed By: #### T 3TOTAL #### [facility] [address] [place] [address] [address] Maxwell Allen Bilirubin [Mass/Vol] 0.5 mg/dL Normal 0.2-1.3 [facility] Comment on above: Performed By: #### T 3TOTAL #### [facility] [address] [place] [address] Dr. Maxwell Allen Calcium [Mass/Vol] 8.9 mg/dL Normal 8.4-10.2 [facility] Comment on above: Performed By: #### T 3TOTAL #### [facility] [address] [place] [address] Dr. Maxwell Allen Chloride [Moles/Vol] 103 mmol/L Normal 98-107 [facility] Comment on above: Performed By: #### T 3TOTAL #### [facility] [address] [place] [address] Dr. Maxwell Allen CO2 [Moles/Vol] 27.2 mmol/L Normal 22.0-30.0 [facility] Comment on above: Performed By: #### T 3TOTAL #### [facility] [address] [place] [address] Dr. Maxwell Allen Creatinine [Mass/Vol] 0.72 mg/dL Normal 0.52-1.04 [facility] Comment on above: Performed By: #### T 3TOTAL #### [facility] [address] [place] [address] Dr. Maxwell Allen EGFR-AF NORWEGIAN >60 Normal >=60 [facility] Comment on above: Performed By: #### T 3TOTAL #### [facility] [address] [place] [address] Dr. Maxwell Allen EGFR-NON AF NORWEGIAN >60 Normal >=60 [facility] Comment on above: Performed By: #### T 3TOTAL #### [facility] [address] [place] [address] Dr. Maxwell Allen Globulin (S) [Mass/Vol] 3.9 g/dL Normal [facility] Comment on above: Performed By: #### T 3TOTAL #### [facility] [address] [place] [address] [address] Maxwell Allen Glucose [Mass/Vol] 122 mg/dL Critically high 74-106 [facility] Comment on above: Performed By: #### T 3TOTAL #### [facility] [address] [place] [address] Dr. Maxwell Allen Potassium [Moles/Vol] 3.8 mmol/L Normal 3.4-5.0 [facility] Comment on above: Performed By: #### T 3TOTAL #### [facility] [address] [place] [address] Dr. Maxwell Allen Protein [Mass/Vol] 7.4 g/dL Normal 6.1-8.2 [facility] Comment on above: Performed By: #### T 3TOTAL #### [facility] [address] [place] [address] Dr. Maxwell Allen Sodium [Moles/Vol] 137 mmol/L Normal 137-145 [facility] Comment on above: Performed By: #### T 3TOTAL #### [facility] [address] [place] [address] Dr. Maxwell Allen Urea nitrogen [Mass/Vol] 10.0 mg/dL Normal 7.0-17.0 [facility] Comment on above: Performed By: #### T 3TOTAL #### [facility] [address] [place] [address] Dr. Maxwell Allen Urea nitrogen/Creatinine [Mass ratio] 13.9 mg/mg Normal [facility] Comment on above: Performed By: #### T 3TOTAL #### [facility] [address] [place] [address] Dr. Maxwell Allen TSHon 07-31-2017 Thyrotropin Qn 2.88 m[IU]/L Normal 0.44 - 3.98 [facility] Comment on above: Result Comment: TSH testing is performed using different testing methodology at [facility] than at other [facility]. Direct result comparisons should only be made within the same method. . Patients receiving more than 5 mg/day of biotin may have interference in test results. A sample should be taken no sooner than eight hours after previous dose. Contact [phone] for additional information. Performed By: #### T SH2 #### [facility] [address] [place] [address] Vital Signs Date Time Vital Sign Value Performing Clinician Facility 01-08-2023 10:00-0400 Body height 157.48 cm Mirian Ponce [facility] [employer] Other 01-08-2023 10:00-0400 Body mass index (BMI) [Ratio] 36.03 kg/m2 Mirian Ponce [facility] [employer] Other 01-08-2023 10:00-0400 Body weight 89.36 kg Mirian Ponce [facility] [employer] Other 01-08-2023 10:00-0400 Diastolic blood pressure 72 mm[Hg] Mirian Ponce [facility] [employer] Other 01-08-2023 10:00-0400 Systolic blood pressure 128 mm[Hg] Mirian Ponce [facility] [employer] Other Encounters Encounter Date Encounter Type Care Provider Facility Start: 02-03-2024 End: 02-03-2024 ambulatory Quinn Canseco [facility] Work Phone: Start: 02-03-2024 End: 02-03-2024 Departed Referred DO Quinn Canseco Work Phone: [facility] Start: 02-02-2024 End: 02-02-2024 ambulatory QUINN AJITH Not Available Start: 01-27-2024 Non-patient / Non-visit DO Cor ey Ajith Work Phone: [facility] Physician [facility] [employer] Work Phone: Start: 01-13-2024 Non-patient / Non-visit DO Cor ey Ajith Work Phone: [facility] Physician [facility] [employer] Work Phone: Start: 01-13-2024 End: 01-13-2024 ambulatory QUINN AJITH Not Available Start: 01-30-2023 End: 01-30-2023 ambulatory Mirian Ponce Other [employer] Other Start: 01-30-2023 Telephone encounter Mirian Ponce [facility] Start: 01-08-2023 Encounter for genera l adult medical examination without abnormal findings Mirian Ponce [facility] Start: 01-08-2023 Encounter for gynecological examination (general) (routine) without abnormal findings Mirian Ponce [facility] Start: 01-08-2023 Periodic preventive med est patient 18-39 yrs Mirian Ponce [facility] Start: 01-08-2023 End: 01-08-2023 ambulatory Mirian Ponce [facility] [employer] Other Start: 01-08-2023 End: 01-08-2023 Departed Referred MD Mirian Ponce Work Phone: [facility] [place] Work Phone: Start: 01-07-2023 ambulatory Marielos L Silvia Facility: [facility] Start: 12-10-2022 ambulatory Marielos Silvia Facility:[facility] Start: 03-18-2022 End: 03-19-[address] NISHA MARIEE Facility:[facility] Start: 02-08-2022 End: 02-09-[address] NISHA MARIEE Facility:[facility] Start: 01-29-2022 End: 01-29-[address] NISHA MARIEE Facility:[facility] Start: 01-29-2022 Gynecological examin ation normal Mirian Ponce Other [employer] Other Start: 04-08-2021 End: 04-08-[address] MIRIAN PONCE Facility: Start: 01-22-2021 Adult health examination Johanny Ponce Other [employer] Other Start: 08-14-2017 Patient encounter procedure Salome Laughlin Facility:[facility] Start: 07-31-2017 Patient encounter procedure Salome Laughlin Facility:[facility] Start: 06-20-2017 Ambulatory Salome Laughlin Facil ity:[facility] [place] Procedures Date Procedure Procedure Detail Performing Clinician Start: 02-08-2008 Contraception care education Mirian Ponce Other End: 04-22-2018 screening Mirian Ponce Other Counseling Mirian Ponce Other End: 08-07-2020 Depression screening Mirian Ponce Other Family planning education Barry Ponce Other End: 05-06-2018 visit Mirian Ponce Other Plan of Treatment Date Care Activity Detail Author Start: 01-08-2023 [facility] Human papilloma viru s 16+18+31+33+35+39+45+51+52+56+58 +59+66+68 DNA [Presence] in Cervix by Probe with signal amplification [facility] Payers Date Payer Category Payer Self-pay 2022 Unknown [id number] 2019 Unknown [id number] 1985 Unknown [id number]. [id number] 1984 Unknown [id number] .16. [id number] 1984 Unknown [id number] .16.84 [id number] 1984 Unknown [id number] 2.16.84 [id number] 1984 Unknown [id number] 2.16.84 [id number] 1984 Unknown [id number] 2.16.84 [id number] 1984 Unknown [id number] 2.16.8 [id number] 1984 Unknown [id number] 2.16.84 [id number] 1984 Unknown [id number] 2.16.84 [id number] Unknown [id number] Unknown [id number] 2.16.8 [id number] Social History Date Type Detail Facility Sex Assigned At [employer] Other Start: 1985 Sex Assigned At Female F [facility] Evaluation note 01-08-2023 Note Date & [...] Z11.3) Dec, Wellness examination (ICD-10 - Z00.00) [employer] Other Evaluation note Note Date & Type Note Facility Evaluation note No assessment information [facility] Work Phone: Evaluation note Note Date & Type Note Facility Evaluation note No Information [facility] [employer] Other History general Narrative - Reported Note Date & Type Note Facility History general Narrative - Reported Type Medical History Adult hypothyroidism Medical History HPV in female Medical History Bronchitis Medical History Asthma, intermittent with acute exacerbation Medical History Acute URI Surgical History Hospitalization History SEE SURG[facility] [employer] Other Summary Purpose Family History No Family History Records Found Relationship Condition Age at Onset Recorded Date/T stacy father Diabetes mellitus Unknown Seizure disorder Unknown mother Hypertension Unknown Advance Directives No Advanced Directives Records Found Advance Directive Response Recorded Date/ Time Advance Directives No January 14, 2023 8:48am Additional Source Comments INFORMATION SOURCE (unrecogn ized section and content) DATE CREATED AUTHOR 11/17/2017 [facility] [place] DATE CREATED AUTHOR AUTHOR'S ORGANIZ ATION 07/06/2018 [facility] DATE CREATED AUTHOR AUTHOR'S ORGANIZ ATION 03/24/2022 [facility] DATE CREATED AUTHOR AUTHOR'S ORGANIZ ATION 12/11/2022 [facility] DATE CREATED AUTHOR AUTHOR'S ORGANIZ ATION 02/03/2024 [facility] DATE CREATED AUTHOR AUTHOR'S ORGANIZ ATION 02/05/2024 [facility] REASON FOR VISIT (unrecogniz ed section and content) Wellness/PAP ExamNo Informat ion Care Teams (unrecognized sec tion and content) Team Status: Inactive Member Role Status Dates Mirian Ponce MD Attending Provider Active Team Status: Active Member Role Status Dates Mirian Ponce MD Primary Care Provider Active Start: January 13, 2024 Quinn Canseco DO Attending Provider Active Start : January 13, 2024 Team Status: Active Member Role Status Dates Mirian Ponce MD Primary Care Provider Active Start: January 27, 2024 Quinn Canseco DO Attending Provider Active Start : January 27, 2024 Team Status: Inactive Member Role Status Dates Quinn Canseco DO Attending Provider Active Start : February 03, 2024 End: February 03, 2024 Goals (unrecognized section and content) Goals may [...] BE BASED ON THE PRIMARY CLINICAL RECORDS. [employer] [facility]. provides no warranty or guarantee of the accuracy or completeness of information in this document.
== END 2024-02-02 09:06 | disposition home or self-care (01) ==
LOC: LAB 09:05
PROVIDERS: PCP Family Medicine; Visit Provider Obstetrics & Gynecology
DX: R87.810 Cervical high risk human papillomavirus (HPV) DNA test positive (principal)
CPT/HCPCS: 88305

== ENCOUNTER 2024-03-13 10:11 | Outpatient (OUT) | payer BC, SELFPAY ==
--- OUTSIDE RECORDS SUMMARY | 2024-03-13 10:14 | XMS_ITS | CCD ---
Author Organization [facility] Care Team Providers Care Ice Cream Maker Name Role Phone Salome Laughlin Unavailable Unavailable [...] Ponce Unavailable MD Mirian Ponce Attending Provider [phone] QUINN CANSECO Attending Unavailable QUINN CANSECO Attending Unavailable DO Quinn Canseco Attending Provider Quinn Canseco Attending Unavailable Quinn Canseco Admitting Unavailable Allergies Allergy Classification Reported Allergen(s) Allergy Type Date of Onset Reaction(s) Facility (1 source) No Known Medication Allergies; Translations: [No Known Medication Allergies] Propensity to adverse reactions (disorder) [facility] Medications Current Medications Medication Drug Class(es) [...] 08-03-2015 Chronic Other aftercare (1 source) 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; Translations: [OTH ALF CURRENT DRUG THERAPY] Onset: 04-10-2021 Episodic Other [...] Test Name Value Interpretation Reference Range Facility [facility] 02-02-2024 L Specimen: [id number] Received: 02/04/24 Status: ARIES Bhatti Num: [id number] Spec Type: Surgical Subm Dr: Quinn Canseco Tissues: A Endocervix - Curettings (ECC) Procedures: HE/2, Gross/Micro L4 Age/ Patient Sex Location Account Attending Physician Graciela Salinas 38/F [facility] [id number] Quinn Canseco SPEC NUM: [id number] RECD: 02/04/24 STATUS: ARIES BHATTI NUM: [id number] ALESIA: 02/02/24- SUBM DR: Quinn Canseco ENTERED: 02/04/24-[address] [facility] [address]: Andrez,Lab SPEC TYPE: Surgical DEPT: ZHANNA RICHTER ENTERED BY: [id number] RECV BY: [id number] ORDERED: HE/2, Gross/Micro L4 ORDERED: HE2, Gross/Micro L4 Pathological Diagnosis Endocervix, curettage: Fibrinopurulent exudate, nondiagnostic. Clinical Information ASCUS HPV positive Gross Description Specimen was received in formalin with the patient's name and ECC and consists of a single loera portion of soft tissue measuring 0.6 cm in greatest dimension. The specimen is entirely submitted in cassette A1. CPT Codes 07788 ---- ---- Specimen: [id number] Received: 02/04/24-1216 Status: ARIES Bhatti Num: [id number] Spec Type: Surgical Subm Dr: Quinn Canseco Tissues: A Endocervix - Curettings (ECC) Procedures: DENAE/Lena, Gross/Micro L4 ---- Patient: BradGraciela [id number] (Continued) ---- Signed (signature on file) Brannon Huff MD 02/10/24 1507 Normal [facility] HBV surface Ag IA Qlon 01-26 Hepatitis B Surface Antigen Negative Negative [facility] Comment on above: Performed at: [facility] [address] [id number] Director: Christophe Moreno PhD, Phone: [phone] Performed at: [facility] [id number] Director: Christophe Moreno PhD, Phone: [phone] HIV 1 and HIV-2 antibody ass ay with HIV-1 p24 antigen detectionon 01-27-2024 HIV 1+2 Ab+HIV1 p24 Ag IA Ql Non-Reactive Non Reactive [facility] Comment on above: HIV-1/HIV-2 antibodi es and HIV-1 p24 antigen were NOTdetected. There is no laboratory evidence of HIV infection.HIV NegativePerformed at: [employer] [address] [id number] Director: Christophe Moreno PhD, Phone: [phone] No Panel Informationon 01-26 RPR Quantitative Confirmation Non Reactive titer NonRea<1:1 [facility] Comment on above: Please Note: This te st does not meet current guidelines forscreening and diagnosis of syphilis. This test isintended for following treatment response in patients beingtreated for syphilis infection. To screen for syphilisinfection, a reflex cascade that includes both RPR and atreponema-specific assay should be utilized, such asTreponema pallidum (Syphilis) Screening Drew (744592) orRapid Plasma Reagin (RPR) Test With Reflex to QuantitativeRPR and Confirmatory Treponema pallidum Antibodies(405505).Performed at: - [facility] [id number] Director: Christophe Moreno PhD, Phone: [phone] Human papilloma virus 16+18+ 31+33+35+39+45+51+52+56+58+59+66+68 DNA [Presence] in Lilia 01-13-2024 HPV 16+18+31+33+35+39+45+ 51+52+56+58+59+66+68 DNA Probe+sig amp Ql (Cvx) Positive Abnormal Negative [facility] Comment on above: This nucleic acid am plification test detects fourteen high- risk HPV types (16,18,31,33,35,39,45,51,52,56,58,59,66,68)without differentiation.Performed at: = - [facility] [id number] Director: Pam Moss MD, Phone: [phone] at: [facility] [id number] Director: Pam Moss MD, Phone: [phone] No Panel Informationon 01-12 HPV High Risk Other Comment Note Abnormal . [facility] Comment on above: TESTS RESULT FLAG UN ITS REF RANGE LAB D IAGNOSIS: [A] 02 EPITHELIAL CELL ABNORMALITY. ATYPICAL SQUAMOUS CELLS OF UNDETERMINED SIGNIFICANCE (ASC-US).Specimen adequacy: 02 Satisfactory for evaluation. Endocervical and/or squamous metaplastic cells (endocervical component) are present.Performed by: 03 Luis Tinajero, Facility Service Associate (ASCP)Electronically si... 02 aHnane Lares MD, Pathologist. 02Pathologist ICD10: 02 R87.610Note: [...] Low,>-Panic High,A-Abnormal,AA-Critical Abnormal ----Performed at:02 WB [facility] [address] [id number] Pam Moss MD, 03 [facility] [address] [address] [place] [address] Michael Smith MD, Reference Lab Test Patient Age Note . [facility] Comment on above: TESTS RESULT FLAG UN ITS REF RANGE LAB Clinician Provided Cytology Information Source.............Cervix;Endocervix No. of containers..01 ThinPrep VialAge Javier SANCHEZ Mar... 30-65 FLAG LEGEND: L-Low Normal,H-High Normal,LL-Alert Low,HH-Alert High <-Panic Low,>-Panic High,A-Abnormal,AA-Critical Abnormal ----Performed at:01 =G [facility] [address] Pam Moss MD, THYR STIM IMMUNOGLOBULINon 1 Thyroid Sim Immunoglobulin <0.10 Normal 0.00-0.55 [facility] Comment on above: Performed By: #### T 3TOTAL #### [facility] [address] [place] [address] Dr. Maxwell Allen T3, TOTAL (TRIIODOTHYRONINE) on 03-19-2022 T3, TOTAL 119 ng/dL Normal 71-180 [facility] Comment on above: Performed By: #### T 3TOTAL #### [facility] [address] [place] [address] Dr. Maxwell Allen FREE T4on 03-18-2022 Free T4 [Mass/Vol] 0.96 ng/dL Normal 0.76-1.46 [facility] Comment on above: Performed By: #### F T4 #### [facility] [address] [place] [address] Dr. Maxwell Allen T4on 03-18-2022 T4 [Mass/Vol] 9.20 ug/dL Normal 4.80-13.90 [facility] Comment on above: Performed By: #### T 4, TSH #### [facility] [address] [place] [address] Dr. Maxwell Allen TSHon 03-18-2022 TSH 1.950 uIU/mL Normal 0.358-3.740 [facility] Comment on above: Performed By: #### T 4, TSH #### [facility] [address] [place] [address] Dr. Maxwell Allen THYROID-STIMULATING IMMUNOGL OBULINon 02-11-2022 Thyroid Sim Immunoglobulin <0.10 Normal 0.00-0.55 [facility] Comment on above: Performed By: #### T NAVA #### [facility] [address] [place] [address] Dr. Maxwell Allen T3, TOTAL (TRIIODOTHYRONINE) on 02-09-2022 T3, TOTAL 116 ng/dL Normal 71-180 [facility] Comment on above: Performed By: #### T 3TOTAL #### [facility] [address] [place] [address] Dr. Maxwell Allen T4 LABCORPon 02-09-2022 T4 [Mass/Vol] 7.8 ug/dL Normal 4.5-12.0 [facility] Comment on above: Performed By: #### T 4LC #### [facility] [address] [place] [address] Dr. Maxwell Allen FREE T4on 02-08-2022 Free T4 [Mass/Vol] 0.85 ng/dL Normal 0.76-1.46 [facility] Comment on above: Performed By: #### F T4 #### [facility] [address] [place] [address] Dr. Maxwell Allen TSHon 02-08-2022 TSH 4.142 uIU/mL Critically high 0.358-3.740 [facility] Comment on above: Performed By: #### T 3TOTAL #### [facility] [address] [place] [address] Dr. Maxwell Allen PAP ACOG PANEL 2: 30 to 65on 02-04-2022 . . Normal [facility] Comment on above: Result Comment: Perf ormed at: WB Performed By: #### 4 [id number] #### [facility] [address] [place] [address] Dr. Maxwell Allen Age Gdln ACOG Testing 30-65 Normal [facility] Comment on above: Performed By: #### 4 [id number] #### [facility] [address] [place] [address] Dr. Maxwell Allen DIAGNOSIS: Comment Normal [facility] Comment on above: Result Comment: NEGA TIVE FOR INTRAEPITHELIAL LESION OR MALIGNANCY. Performed at: WB Performed By: #### 4 [id number] #### [facility] [address] [place] [address] Dr. Maxwell Allen HPV Aptima Negative Normal Negative [facility] Comment on above: Result Comment: This nucleic acid amplification test detects fourteen high-risk HPV types (16,18,31,33,35,39,45,51,52,56,58,59,66,68) without differentiation. Performed at: =G Performed By: #### 4 [id number] #### [facility] [address] [place] [address] Dr. Maxwell Allen Methodology: Comment Normal [facility] Comment on above: Result Comment: This liquid based ThinPrep(R) pap test was screened with the use of an image guided system. Performed at: WB Performed By: #### 4 [id number] #### [facility] [address] [place] [address] Dr. Maxwell Allen Note: Comment Normal [facility] Comment on above: Result Comment: The Pap smear is a screening test designed to aid in the detection of premalignant and malignant conditions of the uterine cervix. It is not a diagnostic procedure and should not be used as the sole means of detecting cervical cancer. Both false-positive and false-negative reports do occur. . Performed at: WB Performed By: #### 4 [id number] #### [facility] [address] [place] [address] Dr. Maxwell Allen Performed by: Comment Normal [facility] Comment on above: Result Comment: Loreto Hayden, Facility Service Associate (ASCP) Performed at: WB Performed By: #### 4 [id number] #### [facility] [address] [place] [address] Dr. Maxwell Allen Specimen adequacy: Comment Normal [facility] Comment on above: Result Comment: Sati sfactory for evaluation. Endocervical and/or squamous metaplastic cells (endocervical component) are present. Performed at: WB Performed By: #### 4 [id number] #### [facility] [address] [place] [address] Dr. Maxwell Allen CBC AUTO DIFFon 04-08-2021 BASO # 0.1 103/ul Normal 0.0-0.1 [facility] Comment on above: Performed By: #### T 3TOTAL #### [facility] [address] [place] [address] Dr. Maxwell Allen Basophils/100 WBC (Bld) 0.5 % Normal 0.2-2.0 [facility] Comment on above: Performed By: #### T 3TOTAL #### [facility] [address] [place] [address] Dr. Maxwell Allen EO # 0.2 103/ul Normal 0.0-0.7 [facility] Comment on above: Performed By: #### T 3TOTAL #### [facility] [address] [place] [address] Dr. Maxwell Allen Eosinophils/100 WBC (Bld) 1.3 % Normal 0.9-7.0 [facility] Comment on above: Performed By: #### T 3TOTAL #### [facility] [address] [place] [address] Dr. Maxwell Allen Erythrocyte distribution width (RBC) [Ratio] 14.7 % Normal 11.0-15.0 [facility] Comment on above: Performed By: #### T 3TOTAL #### [facility] [address] [place] [address] Dr. Maxwell Allen Hematocrit (Bld) [Volume fraction] 38.1 % Normal 36.0-48.0 [facility] Comment on above: Performed By: #### T 3TOTAL #### [facility] [address] [place] [address] Dr. Maxwell Allen Hemoglobin (Bld) [Mass/Vol] 11.8 g/dL Critically low 12.0-16.0 [facility] Comment on above: Performed By: #### T 3TOTAL #### [facility] [address] [place] [address] Dr. Maxwell Allen IG # 0.03 10e3/ul Normal 0.00-0.03 [facility] Comment on above: Performed By: #### T 3TOTAL #### [facility] [address] [address] [address] Maxwell Allen IG % 0.3 % Normal 0.0-0.5 [facility] Comment on above: Performed By: #### T 3TOTAL #### [facility] [address] [address] [address] Maxwell Allen LYMPH # 1.5 103/ul Normal 1.2-3.8 [facility] Comment on above: Performed By: #### T 3TOTAL #### [facility] [address] [address] [address] Maxwell Allen Lymphocytes/100 WBC (Bld) 13.0 % Critically low 20.5-60.0 [facility] Comment on above: Performed By: #### T 3TOTAL #### [facility] [address] [place] [address] Dr. Maxwell Allen MANUAL DIFF REQ NO Normal [facility] Comment on above: Performed By: #### T 3TOTAL #### [facility] [address] [place] [address] Dr. Maxwell Allen MCH (RBC) [Entitic mass] 25.2 pg Critically low 26.7-34.0 [facility] Comment on above: Performed By: #### T 3TOTAL #### [facility] [address] [place] [address] Dr. Maxwell Allen MCHC (RBC) [Mass/Vol] 31.0 g/dL Normal 29.9-35.2 [facility] Comment on above: Performed By: #### T 3TOTAL #### [facility] [address] [place] [address] Dr. Maxwell Allen MCV (RBC) [Entitic vol] 81.2 fL Normal 81.0-99.0 [facility] Comment on above: Performed By: #### T 3TOTAL #### [facility] [address] [place] [address] Dr. Maxwell Allen MONO # 1.0 103/ul Critically high 0.3-0.8 [facility] Comment on above: Performed By: #### T 3TOTAL #### [facility] [address] [place] [address] Dr. Maxwell Allen Monocytes/100 WBC (Bld) 8.7 % Normal 1.7-12.0 [facility] Comment on above: Performed By: #### T 3TOTAL #### [facility] [address] [place] [address] Dr. Maxwell Allen NEUT # 8.5 103/ul Critically high 1.4-6.5 [facility] Comment on above: Performed By: #### T 3TOTAL #### [facility] [address] [place] [address] Dr. Maxwell Allen Neutrophils/100 WBC (Bld) 76.2 % Critically high 43.0-75.0 [facility] Comment on above: Performed By: #### T 3TOTAL #### [facility] [address] [place] [address] Dr. Maxwell Allen Platelet mean volume (Bld) [Entitic vol] 9.6 fL Normal 9.5-13.5 [facility] Comment on above: Performed By: #### T 3TOTAL #### [facility] [address] [place] [address] Dr. Maxwell Allen PLT 267 103/ul Normal 150-450 [facility] Comment on above: Performed By: #### T 3TOTAL #### [facility] [address] [place] [address] Dr. Maxwell Allen RBC 4.69 106/ul Normal 4.20-5.40 [facility] Comment on above: Performed By: #### T 3TOTAL #### [facility] [address] [place] [address] Dr. Maxwell Allen WBC 11.2 103/ul Critically high 4.0-11.0 [facility] Comment on above: Performed By: #### T 3TOTAL #### [facility] [address] [place] [address] Dr. Maxwell Allen CULTURE BLOODon 04-08-2021 Microscopic examination of blood, culture Culture Observations: NO GROWTH AT 5 DAYS. Normal [facility] Comment on above: Performed By: #### B LDCX1 #### [facility] [address] [address] [address] Maxwell Allen PROF 14(COMP METB)on 021 Albumin [Mass/Vol] 3.5 g/dL Normal 3.5-5.0 [facility] Comment on above: Performed By: #### T 3TOTAL #### [facility] [address] [address] [address] Maxwell Allen Albumin/Globulin [Mass ratio] 0.9 {ratio} Normal [facility] Comment on above: Performed By: #### T 3TOTAL #### [facility] [address] [address] [address] Maxwell Allen ALP [Catalytic activity/Vol] 59 U/L Normal 38-126 [facility] Comment on above: Performed By: #### T 3TOTAL #### [facility] [address] [place] [address] Dr. Maxwell Allen ALT [Catalytic activity/Vol] 31 U/L Normal 9-52 [facility] Comment on above: Performed By: #### T 3TOTAL #### [facility] [address] [place] [address] Dr. Maxwell Allen Anion gap [Moles/Vol] 10.6 mmol/L Normal [facility] Comment on above: Performed By: #### T 3TOTAL #### [facility] [address] [place] [address] Dr. Maxwell Allen AST [Catalytic activity/Vol] 14 U/L Normal 14-36 [facility] Comment on above: Performed By: #### T 3TOTAL #### [facility] [address] [place] [address] Dr. Maxwell Allen Bilirubin [Mass/Vol] 0.5 mg/dL Normal 0.2-1.3 [facility] Comment on above: Performed By: #### T 3TOTAL #### [facility] [address] [place] [address] Dr. Maxwell Allen Calcium [Mass/Vol] 8.9 mg/dL Normal 8.4-10.2 [facility] Comment on above: Performed By: #### T 3TOTAL #### [facility] [address] [address] [address] Maxwell Allen Chloride [Moles/Vol] 103 mmol/L Normal 98-107 [facility] Comment on above: Performed By: #### T 3TOTAL #### [facility] [address] [address] [address] Maxwell Allen CO2 [Moles/Vol] 27.2 mmol/L Normal 22.0-30.0 [facility] Comment on above: Performed By: #### T 3TOTAL #### [facility] [address] [address] [address] Maxwell Allen Creatinine [Mass/Vol] 0.72 mg/dL Normal 0.52-1.04 [facility] Comment on above: Performed By: #### T 3TOTAL #### [facility] [address] [place] [address] Dr. Maxwell Allen EGFR-AF ESTONIAN >60 Normal >=60 [facility] Comment on above: Performed By: #### T 3TOTAL #### [facility] [address] [address] [address] Maxwell Allen EGFR-NON AF ESTONIAN >60 Normal >=60 [facility] Comment on above: Performed By: #### T 3TOTAL #### [facility] [address] [address] [address] Maxwell Allen Globulin (S) [Mass/Vol] 3.9 g/dL Normal [facility] Comment on above: Performed By: #### T 3TOTAL #### [facility] [address] [place] [address] Dr. Maxwell Allen Glucose [Mass/Vol] 122 mg/dL Critically high 74-106 [facility] Comment on above: Performed By: #### T 3TOTAL #### [facility] [address] [address] [address] Maxwell Allen Potassium [Moles/Vol] 3.8 mmol/L Normal 3.4-5.0 [facility] Comment on above: Performed By: #### T 3TOTAL #### [facility] [address] [address] [address] Maxwell Allen Protein [Mass/Vol] 7.4 g/dL Normal 6.1-8.2 [facility] Comment on above: Performed By: #### T 3TOTAL #### [facility] [address] [address] [address] Maxwell Allen Sodium [Moles/Vol] 137 mmol/L Normal 137-145 [facility] Comment on above: Performed By: #### T 3TOTAL #### [facility] [address] [address] [address] Maxwell Allen Urea nitrogen [Mass/Vol] 10.0 mg/dL Normal 7.0-17.0 [facility] Comment on above: Performed By: #### T 3TOTAL #### [facility] [address] [address] [address] Maxwell Allen Urea nitrogen/Creatinine [Mass ratio] 13.9 mg/mg Normal [facility] Comment on above: Performed By: #### T 3TOTAL #### [facility] [address] [address] [address] Maxwell Allen TSHon 07-31-2017 Thyrotropin Qn 2.88 m[IU]/L Normal 0.44 - 3.98 [facility] Comment on above: Result Comment: TSH testing is performed using different testing methodology at [facility] than at other [facility]. Direct result comparisons should only be made within the same method. . Patients receiving more than 5 mg/day of biotin may have interference in test results. A sample should be taken no sooner than eight hours after previous dose. Contact [phone] for additional information. Performed By: #### T SH2 #### [facility] [address] [place] [address] Vital Signs Date Time Vital Sign Value Performing Clinician Facility 01-08-2023 10:00-0400 Body height 157.48 cm Mirian Ponce [facility] Other 01-08-2023 10:00-0400 Body mass index (BMI) [Ratio] 36.03 kg/m2 Mirian Ponce [facility] Other 01-08-2023 10:00-0400 Body weight 89.36 kg Mirian Ponce Other [facility] Other 01-08-2023 10:00-0400 Diastolic blood pressure 72 mm[Hg] Mirian Ponce Other [facility] Other 01-08-2023 10:00-0400 Systolic blood pressure 128 mm[Hg] Mirian Ponce Other [facility] Other Encounters Encounter Date Encounter Type Care Provider Facility Start: 02-03-2024 End: 02-03-2024 ambulatory Quinn Ajith [facility] Work Phone: Start: 02-03-2024 End: 02-03-2024 Departed Referred DO Quinn Ajith Work Phone: [facility] Start: 02-02-2024 End: 02-02-2024 ambulatory QUINN AJITH Not Available Start: 01-27-2024 Non-patient / Non-visit DO Cor ey Ajith Work Phone: [facility] Work Phone: Start: 01-13-2024 Non-patient / Non-visit DO Cor ey Ajith Work Phone: [facility] Work Phone: Start: 01-13-2024 End: 01-13-2024 ambulatory QUINN AJITH Not Available Start: 01-30-2023 End: 01-30-2023 ambulatory Mirian Ponce Other [facility] [employer] Other Start: 01-30-2023 Telephone encounter Mirian Ponce [facility] Start: 01-08-2023 Encounter for genera l adult medical examination without abnormal findings Mirian Ponce [facility] Start: 01-08-2023 Encounter for gynecological examination (general) (routine) without abnormal findings Mirian Ponce [facility] Start: 01-08-2023 Periodic preventive med est patient 18-39 yrs Mirian Ponce [facility] Start: 01-08-2023 End: 01-08-2023 ambulatory Mirian Ponce Other [facility] Other Start: 01-08-2023 End: 01-08-2023 Departed Referred MD Mirian Ponce Work Phone: [facility] [place] Work Phone: Start: 01-07-2023 ambulatory Marielos Vega Facility: [facility] Start: 12-10-2022 ambulatory Marielos Vega Facility:[facility] Start: 03-18-2022 End: 03-19-[address] NISHA MARIEE Facility:[facility] Start: 02-08-2022 End: 02-09-[address] NISHA MARIEE Facility:[facility] Start: 01-29-2022 End: 01-29-[address] NISHA MARIEE Facility:[facility] Start: 01-29-2022 Gynecological examin ation normal Mirian Ponce Other [facility] Other Start: 04-08-2021 End: 04-08-[address] MIRIAN PONCE Facility:[facility] Start: 01-22-2021 Adult health examination Johanny Ponce Other [facility] Other Start: 08-14-2017 Patient encounter procedure Salome Laughlin Facility:[facility] Travis Machado Start: 07-31-2017 Patient encounter procedure Salome Laughlin Facility:[facility] Travis Machado Start: 06-20-2017 Ambulatory Salome Laughlin Facil ity:[facility] Procedures Date Procedure Procedure Detail Performing Clinician Start: 02-08-2008 Contraception care education Mirian Ponce Other End: 04-22-2018 screening Mirian Ponce Other Counseling Mirian Ponce Other End: 08-07-2020 Depression screening Mirian Ponce Other Family planning education Ma gianfranco Ponce Other End: 05-06-2018 visit Mirian Ponce Other Plan of Treatment Date Care Activity Detail Author Start: 01-08-2023 [facility] Human papilloma viru s 16+18+31+33+35+39+45+51+52+56+58 +59+66+68 DNA [Presence] in Cervix by Probe with signal amplification [facility] Payers Date Payer Category Payer Self-pay 2022 Unknown [id number] 2019 Unknown [id number] 1984 Unknown [id number] 2.16. [id number] 1984 Unknown [id number] 2.16. [id number] 1984 Unknown [id number] 2.16.84 [id number] 1984 Unknown [id number] 2.16.84 [id number] 1984 Unknown [id number] 2.16.84 0.1.089088.3.579.2.593 1984 Unknown [id number] 2.16.84 [id number] 1984 Unknown [id number] 2.16.8 [id number] 1984 Unknown [id number] 2.16.84 0.1.532476.3.579.2.1259 1984 Unknown [id number] 2.16.84 [id number] Unknown [id number] Unknown [id number] 2.16.8 [id number] Social History Date Type Detail Facility Sex Assigned At [employer] Other Start: 1985 Sex Assigned At Female F [facility] Evaluation note 01-08-2023 Note Date & [...] Z11.3) Dec, Wellness examination (ICD-10 - Z00.00) [employer] Other Evaluation note Note Date & Type Note Facility Evaluation note [facility]: Evaluation note Note Date & Type Note Facility Evaluation note No Information [employer] [facility] [employer] Other History general Narrative - Reported Note Date & Type Note Facility History general Narrative - Reported Type Medical History Adult hypothyroidism Medical History HPV in female Medical History Bronchitis Medical History Asthma, intermittent with acute exacerbation Medical History Acute URI Surgical History Hospitalization History SEE SURGICAL HX [employer] Other Summary Purpose Family History No Family History Records Found Relationship Condition Age at Onset Recorded Date/T stacy father Diabetes mellitus Unknown Seizure disorder Unknown mother Hypertension Unknown Advance Directives No Advanced Directives Records Found Advance Directive Response Recorded Date/ Time Advance Directives No January 14, 2023 8:48am Additional Source Comments INFORMATION SOURCE (unrecogn ized section and content) DATE CREATED AUTHOR 11/17/2017 [facility] DATE CREATED AUTHOR AUTHOR'S ORGANIZ ATION 07/06/2018 [facility] DATE CREATED AUTHOR AUTHOR'S ORGANIZ ATION 03/24/2022 [facility] DATE CREATED AUTHOR AUTHOR'S ORGANIZ ATION 12/11/2022 [facility] DATE CREATED AUTHOR AUTHOR'S ORGANIZ ATION 02/03/2024 [facility] EPIC DATE CREATED AUTHOR AUTHOR'S ORGANIZ ATION 02/12/2024 [facility] REASON FOR VISIT (unrecogniz ed [...] BE BASED ON THE PRIMARY CLINICAL RECORDS. [employer] [facility]. provides no warranty or guarantee of the accuracy or completeness of information in this document.
[2024-03-13 10:53] LABS: Thyroid Stimulating Hormone 3.041 uIU/mL (0.358-3.740)
== END 2024-03-13 10:12 | disposition home or self-care (01) ==
LOC: LAB 10:12
PROVIDERS: PCP Family Medicine; Visit Provider Obstetrics & Gynecology
DX: R79.89 Other specified abnormal findings of blood chemistry (principal)
CPT/HCPCS: 36415; 84443

== ENCOUNTER 2024-08-10 21:28 | Outpatient (REF) | payer BC, SELFPAY ==
--- OUTSIDE RECORDS SUMMARY | 2024-08-10 21:31 | XMS_ITS | CCD ---
Author Organization [facility] Care Team Providers Care Forwarder Operator Name Role Phone Salome Laughlin Unavailable Unavailable Salome Laughlin Unavailable Unavailable Mirian Ponce Unavailable Unavaila veronica Laughlin, Salome Delgado Attending Unavailable Kris, Mirian Landaverde Primary Care Unavaila Salome Vaz Attending Unavailable Kris, Mirian Landaverde Primary Care Unavaila ble KODI, DR CAMERON Admitting Unavailable KARASIK, DR CAMERON Consulting Unavailable KARASIK, DR CAMERON Attending Unavailable PONCE, DR MIRIAN Ruiz Primary Care Unavailable KARASIK, DR CAMERON Consulting Unavailable KARASIK, DR CAMERON Attending Unavailable KARASIK, DR CAMERON Admitting Unavailable KRIS, DR MIRIAN Ruiz Primary Care Unavailable KARASIK, [...] Canseco Attending Unavailable Quinn Canseco Admitting Unavailable Unavailable Primary Care Provider Unavailabl e Allergies Allergy Classification Reported Allergen(s) Allergy Type Date of Onset Reaction(s) Facility (1 source) No Known Medication Allergies; Translations: [No Known Medication Allergies] Propensity to adverse reactions (disorder) [facility] Medications Current Medications Medication Drug Class(es) Dates Sig (Normalized) Sig (Original) ethinyl estradiol 0.035 mg / norgestimate 0.25 mg oral tablet (9 sources) Progestin, Estrogen Start: 01-13-2024 End: 01-12-2025 norgestimate-ethiny l estradiol (Susanna) 0.25-35 MG-MCG tablet Indications: control counseling Take 1 tablet by mouth Daily 28 tablet 12 01/13/2024 01/12/2025 Active fluconazole 150 mg oral tablet (1 source) Azole Antifungal take 1 tablet by mouth once Fluconazole 150 MG 1 tablet Orally once for 1 days Active levothyroxine sodium 0.05 mg oral tablet (11 sources) l-Thyroxine Start: 07-30-2023 End: 07-30-2023 take 50 ug by mouth once daily Levothyroxine Active 50 MCG PO Daily July 30, 2023 10:32am take 1 tablet by bebeto th every twenty-four hours Levothyroxine Sodium 50 MCG 1 tablet Orally Once a day for 90 days Active loratadine 10 mg oral capsule (7 sources) take 1 capsule by mo uth once daily Loratadine (Claritin) 10 MG capsule Take 1 capsule by mouth 1 (one) time each day at the same time Active Susanna (2 sources) Susanna Active Problems Active Problems Problem Classification Problem Date Documented Date Episodic/Chronic Asthma (3 sources) Unspecified asthma, uncomplicated; Translations: [Exacerbation of intermittent asthma] Onset: 04-10-2021 Chronic Cancer of cervix (5 sources) Cervicovaginal cytology: Low grade squamous intraepithelial lesion; Translations: [Low grade squamous intraepithelial lesion on cytologic smear of cervix (LGSIL)] Onset: 02-02-2024 Resolved: 09-01-2018 02-02-2024 Episodic Hemorrhage during ; abruptio placenta; placenta [...] unspecified site] Onset: 08-13-2016 Resolved: 07-22-2019 Episodic Contraceptive and procreative management (4 sources) Surveillance of oral contraception done; Translations: [Encounter for surveillance of contraceptive pills] 01-13-2024 Episodic Diabetes mellitus without complication (2 sources) Abnormal glucose level; Translations: [Other abnormal glucose] Resolved: 04-22-2018 Episodic Diseases of mouth; excluding dental (4 sources) Diseases of lips; Translations: [DISEASES OF LIPS] Onset: 04-08-2021 Episodic Female infertility (2 sources) Female infertility; Translations: [Female infertility, unspecified] Resolved: 08-07-2020 Chronic Immunizations and screening for infectious disease (8 sources) Encounter for screening for human papillomavirus (HPV); Translations: [Sexually transmitted infectious disease] Onset: 01-31-2022 Resolved: 04-22-2018 Episodic Menstrual disorders (2 sources) Irregular periods; Translations: [Irregular menstrual cycle] Onset: 08-28-2006 Resolved: 08-03-2015 Chronic Other aftercare (1 source) Other chcf (current) drug therapy; Translations: [OTH GROUP HOME CURRENT DRUG THERAPY] Onset: 04-10-2021 Episodic Other [...] conditions (not mental disorders or infectious disease) (12 sources) Encounter for screening for malignant neoplasm [...] testing; Translations: [Encounter for fertility testing] Onset: 01-26-2018 Unclassified (2 sources) Contraception care education done; Translations: [General counseling for prescription of oral contraceptives] Onset: 02-08-2008 Results Test Name Value Interpretation Reference Range Facility ALL THYROID STIM HORMONEon 1 TSH Qn 3.041 m[IU]/L [facility] Colposcopyon 02-02-2024 Concepcion ColinVINNIE 02/18/2024 11:12 AM Colposcopy Date/Time: 02/02/2024 4:06 PM Performed by: Quinn Canseco DO Authorized by: Quinn Canseco DO Procedure location: cervix Consent: Patient questions answered: yes Risks and benefits of the procedure and its alternatives discussed: yes Consent obtained: Written Consent given by: Patient Indication: Cervical indication(s): HPV 16, HPV 18, HPV 45 and ASCUS Pre-procedure: Speculum was placed in the vagina: yes Prep solution(s): acetic acid Procedure: Colposcopy with: endocervical curettage Biopsy taken: no Cervix visibility: fully visualized Ferric subsulfate solution applied: no Tampon inserted: no Post-procedure: Patient tolerance of procedure: Patient tolerated the procedure well with no immediate complications Instructions and paperwork completed: yes Educational handouts given: yes [facility] HCG ( test) Ql (U)o n 02-02-2024 Interpretation and review of laboratory results Normal [facility] Preg Test, Ur Negative [facility] Yunier 02-02-2024 L Specimen: [id number] Received: 02/04/24 Status: ARIES Bhatti Num: [id number] Spec Type: Surgical Subm Dr: Quinn Canseco Tissues: A Endocervix - Curettings (ECC) Procedures: HE/2, Gross/Micro L4 Age/ Patient Sex Location Account Attending Physician Graciela Salinas 38/F [facility] [id number] Quinn Canseco SPEC NUM: [id number] RECD: 02/04/24 STATUS: ARIES BHATTI NUM: [id number] ALESIA: 02/02/24- SUBM DR: Quinn Canseco ENTERED: 02/04/[address]: Andrez,Lab SPEC TYPE: Surgical DEPT: ZHANNA RICHTER ENTERED BY: [id number] RECV BY: [id number] ORDERED: HE/2, Gross/Micro L4 ORDERED: HE/2, Gross/Micro L4 Pathological Diagnosis Endocervix, curettage: Fibrinopurulent exudate, nondiagnostic. Clinical Information ASCUS HPV positive Gross Description Specimen was received in formalin with the patient's name and ECC and consists of a single loera portion of soft tissue measuring 0.6 cm in greatest dimension. The specimen is entirely submitted in cassette A1. CPT Codes 19279 -------- -------- Specimen: [id number] Received: 02/04/24 Status: ARIES Bhatti Num: [id number] Spec Type: Surgical Subm Dr: Quinn Canseco Tissues: A Endocervix - Curettings (ECC) Procedures: DENAE/Lena, Gross/Micro L4 -------- Patient: Graciela Salinas [id number] (Continued) -------- Signed (signature on file) Brannon Huff MD 02/10/24 1507 Normal [facility] HIV AB/P24 AG WITH REFLEXon 01-28-2024 HIV AB/P24 AG SCREEN Non-Reactive Non Reactive [facility] Comment on above: HIV-1/HIV-2 antibodi es and HIV-1 p24 antigen were NOT detected. There is no laboratory evidence of HIV infection. HIV Negative Performed at: [facility] [address] [place] [address] [id number] Postdoctoral Research Associate: Christophe Moreno PhD, Phone: [phone] [facility] HBV surface Ag IA Qlon 01-26 Hepatitis B Surface Antigen Negative [facility] Comment on above: Performed at: [facility] [place] [address] [id number] Director: Christophe Moreno PhD, Phone: [phone] Performed at: [facility] [place] [address] [id number] Director: Christophe Moreno PhD, Phone: [phone] HIV 1 and HIV-2 antibody ass ay with HIV-1 p24 antigen detectionon 01-27-2024 HIV 1+2 Ab+HIV1 p24 Ag IA Ql Non-Reactive Non Reactive [facility] Comment on above: HIV-1/HIV-2 antibodi es and HIV-1 p24 antigen were NOTdetected. There is no laboratory evidence of HIV infection.HIV NegativePerformed at: [facility] [id number] Director: Christophe Moreno PhD, Phone: [phone] No Panel Informationon 01-26 RPR Quantitative Confirmation Non Reactive titer NonRea<1:1 [facility] Comment on above: Please Note: This te st does not meet current guidelines forscreening and diagnosis of syphilis. This test isintended for following treatment response in patients beingtreated for syphilis infection. To screen for syphilisinfection, a reflex cascade that includes both RPR and atreponema-specific assay should be utilized, such asTreponema pallidum (Syphilis) Screening [place] (555810) orRapid Plasma Reagin (RPR) Test With Reflex to QuantitativeRPR and Confirmatory Treponema pallidum Antibodies(989955).Performed at: [address] [id number] Director: Christophe Moreno PhD, Phone: [phone] IGP,APTIMA HPV,AGE GDLNon AGE GDLN ACOG TESTING Note . [facility] Comment on above: TESTS RESULT FLAG UN ITS REF RANGE LAB Clinician Provided Cytology Information Source.............Cervix;Endocervix No. of containers..01 ThinPrep Vial Age Algo ACOG Mar... 29 01 FLAG LEGEND: L-Low Normal,H-High Normal,LL-Alert Low,HH-Alert High <-Panic Low,>-Panic High,A-Abnormal,AA-Critical Abnormal Performed at: 01 =G [address] [address] Pam Moss MD, HPV APTIMA Positive Abnormal Negative [facility] Comment on above: This nucleic acid am plification test detects fourteen high- risk HPV types (16,18,31,33,35,39,45,51,52,56,58,59,66,68) without differentiation. Performed at: =G - [facility] [id number] Postdoctoral Research Associate: Pam Moss MD, Phone: [phone] Performed at: - [facility] [id number] Postdoctoral Research Associate: Pam Moss MD, Phone: [phone] IGP, APTIMA HPV, RFX 16/18,45 Note Abnormal . [facility] Comment on above: TESTS RESULT FLAG UN ITS REF RANGE LAB DIAGNOSIS: [A] 02 EPITHELIAL CELL ABNORMALITY. ATYPICAL SQUAMOUS CELLS OF UNDETERMINED SIGNIFICANCE (ASC-US). Specimen adequacy: 02 Satisfactory for evaluation. Endocervical and/or squamous metaplastic cells (endocervical component) are present. Performed by: 03 Luis Tinajero, Site Safety Coordinator (ASCP) Electronically si... 02 Hanane Lares MD, Pathologist . 02 Pathologist ICD10: 02 R87.610 Note: Note 02 The Pap smear is [...] the use of an image guided system. HPV Genotype Reflex Note 02 Criteria not met, HPV Genotype not performed. FLAG LEGEND: L-Low Normal,H-High Normal,LL-Alert Low,HH-Alert High <-Panic Low,>-Panic High,A-Abnormal,AA-Critical Abnormal Performed at: 02 WB [facility] [address] [address] Pam Moss MD, 03 [facility] [address] [place] [phone] Michael Smith MD, Interpretation and review of laboratory results Abnormal [facility] BRUSH-SPATULA CERVIX ENDOCERVIX [facility] URETHRITIS/DISCHARGE PLUS VA GINITIS (HTRX)on 01-14-2024 ATOPOBIUM VAGINAE 0.000 [facility] ATOPOBIUM VAGINAE Not detected [facility] BVAB 2,3 (BACTERIAL VAGINOSIS ASSOCIATED BACTERIA 2, 3); MOBILUNCUS SPP 0.000 [facility] BVAB 2,3 (BACTERIAL VAGINOSIS ASSOCIATED BACTERIA 2, 3); MOBILUNCUS SPP Not detected [facility] LETI ALBICANS, PARAPSILOSIS, TROPICALIS 0.000 [facility] LETI ALBICANS, PARAPSILOSIS, TROPICALIS Not detected [facility] LETI GLABRATA 0.000 [facility] LETI GLABRATA Not detected [facility] LETI KRUSEI 0.000 [facility] LETI KRUSEI Not detected [facility] CHLAMYDIA TRACHOMATIS 0.000 [facility] CHLAMYDIA TRACHOMATIS Not detected [facility] GARDNERELLA VAGINALIS 0.000 [facility] GARDNERELLA VAGINALIS Not detected [facility] MEGASPHAERA (TYPES 1, 2) 0.000 [facility] MEGASPHAERA (TYPES 1, 2) Not detected [facility] MYCOPLASMA GENITALIUM 0.000 [facility] MYCOPLASMA GENITALIUM Not detected [facility] NEISSERIA GONORRHOEAE 0.000 [facility] NEISSERIA GONORRHOEAE Not detected [facility] TRICHOMONAS VAGINALIS 0.000 [facility] TRICHOMONAS VAGINALIS Not detected [facility] Human papilloma virus 16+18+ 31+33+35+39+45+51+52+56+58+59+66+68 DNA [Presence] in [place] 01-13-2024 HPV 16+18+31+33+35+39+45+ 51+52+56+58+59+66+68 DNA Probe+sig amp Ql (Cvx) Positive Abnormal [facility] Comment on above: This nucleic acid am plification test detects fourteen high- risk HPV types (16,18,31,33,35,39,45,51,52,56,58,59,66,68)without differentiation.Performed at: =G - [facility] [address] [place], [place] [id number] Director: Pam Moss MD, Phone: [phone] at: - [facility] [address] [id number] Director: Pam Moss MD, Phone: [phone] No Panel Informationon 01-12 HPV High Risk Other Comment Note Abnormal . [facility] Comment on above: TESTS RESULT FLAG UN ITS REF RANGE LAB D IAGNOSIS: [A] 02 EPITHELIAL CELL ABNORMALITY. ATYPICAL SQUAMOUS CELLS OF UNDETERMINED SIGNIFICANCE (ASC-US).Specimen adequacy: 02 Satisfactory for evaluation. Endocervical and/or squamous metaplastic cells (endocervical component) are present.Performed by: 03 Luis Tinajero, Site Safety Coordinator (ASCP)Electronically si... 02 Hanane Lares MD, Pathologist. [...] Low,>-Panic High,A-Abnormal,AA-Critical Abnormal ----Performed at:02 WB [facility] [address] [place] [address] Pam Moss MD, 03 [facility] [address] [place] [address] Michael Smith MD, Reference Lab Test Patient Age Note . [facility] Comment on above: TESTS RESULT FLAG UN ITS REF RANGE LAB Clinician Provided Cytology Information Source.............Cervix;Endocervix No. of containers..01 ThinPrep VialAge Treso DANIEL Mar... 30-65 01 FLAG LEGEND: L-Low Normal,H-High Normal,LL-Alert Low,HH-Alert High <-Panic Low,>-Panic High,A-Abnormal,AA-Critical Abnormal ----Performed at:01 =G [facility] [address] Pam Moss MD, THYR STIM IMMUNOGLOBULINon 1 Thyroid Sim Immunoglobulin <0.10 Normal 0.00-0.55 [facility] Comment on above: Performed By: #### T 3TOTAL #### [facility] [address] [place] [address] Dr. Maxwell Allen T3, TOTAL (TRIIODOTHYRONINE) on 03-19-2022 T3, TOTAL 119 ng/dL Normal 71-180 [facility] Comment on above: Performed By: #### T 3TOTAL #### [facility] [address] [place] [address] Dr. Maxwell Allen FREE T4on 03-18-2022 Free T4 [Mass/Vol] 0.96 ng/dL Normal 0.76-1.46 [facility] Comment on above: Performed By: #### F T4 #### [facility] [address] [place] [address] Dr. Maxwell Allen T4on 03-18-2022 T4 [Mass/Vol] 9.20 ug/dL Normal 4.80-13.90 [facility] Comment on above: Performed By: #### T 4, TSH #### [facility] [address] [place] [address] Dr. Maxwell Allen TSHon 03-18-2022 TSH 1.950 uIU/mL Normal 0.358-3.740 [facility] Comment on above: Performed By: #### T 4, TSH #### [facility] [address] [place] [address] Dr. Maxwell Allen THYROID-STIMULATING IMMUNOGL OBULINon 02-11-2022 Thyroid Sim Immunoglobulin <0.10 Normal 0.00-0.55 [facility] Comment on above: Performed By: #### T NAVA #### [facility] [address] [place] [address] Dr. Maxwell Allen T3, TOTAL (TRIIODOTHYRONINE) on 09-17-2022 T3, TOTAL 116 ng/dL Normal 71-180 [facility] Comment on above: Performed By: #### T 3TOTAL #### [facility] [address] [place] [address] Dr. Maxwell Allen T4 LABCORPon 02-09-2022 T4 [Mass/Vol] 7.8 ug/dL Normal 4.5-12.0 [facility] Comment on above: Performed By: #### T 4LC #### [facility] [address] [place] [address] Dr. Maxwell Allen FREE T4on 02-08-2022 Free T4 [Mass/Vol] 0.85 ng/dL Normal 0.76-1.46 [facility] Comment on above: Performed By: #### F T4 #### [facility] [address] [place] [address] Dr. Maxwell Allen TSHon 02-08-2022 TSH 4.142 uIU/mL Critically high 0.358-3.740 [facility] Comment on above: Performed By: #### T 3TOTAL #### [facility] [address] [place] [address] Dr. Maxwell Allen PAP ACOG PANEL 2: 30 to 65on 02-04-2022 . . Normal [facility] Comment on above: Result Comment: Perf ormed at: WB Performed By: #### 4 [id number] #### [facility] [address] [place] [address] Dr. Maxwell Allen Age Gdln ACOG Testing 30-65 Normal [facility] Comment on above: Performed By: #### 4 [id number] #### [facility] [address] [place] [address] Dr. Maxwell Allen DIAGNOSIS: Comment Normal [facility] Comment on above: Result Comment: NEGA TIVE FOR INTRAEPITHELIAL LESION OR MALIGNANCY. Performed at: WB Performed By: #### 4 [id number] #### [facility] [address] [place] [address] Dr. Maxwell Allen HPV Aptima Negative Normal Negative [facility] Comment on above: Result Comment: This nucleic acid amplification test detects fourteen high-risk HPV types (16,18,31,33,35,39,45,51,52,56,58,59,66,68) without differentiation. Performed at: =G Performed By: #### 4 [id number] #### [facility] [address] [place] [address] Dr. Maxwell Allen Methodology: Comment Normal [facility] Comment on above: Result Comment: This liquid based ThinPrep(R) pap test was screened with the use of an image guided system. Performed at: WB Performed By: #### 4 [id number] #### [facility] [address] [place] [address] Dr. Maxwell Allen Note: Comment Normal [facility] Comment on above: Result Comment: The Pap smear is a screening test designed to aid in the detection of premalignant and malignant conditions of the uterine cervix. It is not a diagnostic procedure and should not be used as the sole means of detecting cervical cancer. Both false-positive and false-negative reports do occur. . Performed at: WB Performed By: #### 4 [id number] #### [facility] [address] [place] [address] Dr. Maxwell Allen Performed by: Comment Normal [facility] Comment on above: Result Comment: Loreto Hayden, Site Safety Coordinator (ASCP) Performed at: WB Performed By: #### 4 [id number] #### [facility] [address] [place] [address] Dr. Maxwell Allen Specimen adequacy: Comment Normal [facility] Comment on above: Result Comment: Sati sfactory for evaluation. Endocervical and/or squamous metaplastic cells (endocervical component) are present. Performed at: WB Performed By: #### 4 [id number] #### [facility] [address] [place] [address] Dr. Maxwell Allen CBC AUTO DIFFon 04-08-2021 BASO # 0.1 103/ul Normal 0.0-0.1 [facility] Comment on above: Performed By: #### T 3TOTAL #### [facility] [address] [place] [address] Dr. Maxwell Allen Basophils/100 WBC (Bld) 0.5 % Normal 0.2-2.0 [facility] Comment on above: Performed By: #### T 3TOTAL #### [facility] [address] [place] [address] Dr. Maxwell Allen EO # 0.2 103/ul Normal 0.0-0.7 [facility] Comment on above: Performed By: #### T 3TOTAL #### [facility] [address] [place] [address] Dr. Maxwell Allen Eosinophils/100 WBC (Bld) 1.3 % Normal 0.9-7.0 [facility] Comment on above: Performed By: #### T 3TOTAL #### [facility] [address] [place] [address] Dr. Maxwell Allen Erythrocyte distribution width (RBC) [Ratio] 14.7 % Normal 11.0-15.0 [facility] Comment on above: Performed By: #### T 3TOTAL #### [facility] [address] [place] [address] Dr. Maxwell Allen Hematocrit (Bld) [Volume fraction] 38.1 % Normal 36.0-48.0 [facility] Comment on above: Performed By: #### T 3TOTAL #### [facility] [address] [place] [address] Dr. Maxwell Allen Hemoglobin (Bld) [Mass/Vol] 11.8 g/dL Critically low 12.0-16.0 [facility] Comment on above: Performed By: #### T 3TOTAL #### [facility] [address] [place] [address] Dr. Maxwell Allen IG # 0.03 10e3/ul Normal 0.00-0.03 [facility] Comment on above: Performed By: #### T 3TOTAL #### [facility] [address] [place] [address] Dr. Maxwell Allen IG % 0.3 % Normal 0.0-0.5 [facility] Comment on above: Performed By: #### T 3TOTAL #### [facility] [address] [place] [address] Dr. Maxwell Allen LYMPH # 1.5 103/ul Normal 1.2-3.8 [facility] Comment on above: Performed By: #### T 3TOTAL #### [facility] [address] [place] [address] Dr. Maxwell Allen Lymphocytes/100 WBC (Bld) 13.0 % Critically low 20.5-60.0 [facility] Comment on above: Performed By: #### T 3TOTAL #### [facility] [address] [place] [address] Dr. Maxwell Allen MANUAL DIFF REQ NO Normal [facility] Comment on above: Performed By: #### T 3TOTAL #### [facility] [address] [place] [address] Dr. Maxwell Allen MCH (RBC) [Entitic mass] 25.2 pg Critically low 26.7-34.0 [facility] Comment on above: Performed By: #### T 3TOTAL #### [facility] [address] [place] [address] Dr. Maxwell Allen MCHC (RBC) [Mass/Vol] 31.0 g/dL Normal 29.9-35.2 [facility] Comment on above: Performed By: #### T 3TOTAL #### [facility] [address] [place] [address] Dr. Maxwell Allen MCV (RBC) [Entitic vol] 81.2 fL Normal 81.0-99.0 [facility] Comment on above: Performed By: #### T 3TOTAL #### [facility] [address] [place] [address] Dr. Maxwell Allen MONO # 1.0 103/ul Critically high 0.3-0.8 [facility] Comment on above: Performed By: #### T 3TOTAL #### [facility] [address] [place] [address] Dr. Maxwell Allen Monocytes/100 WBC (Bld) 8.7 % Normal 1.7-12.0 [facility] Comment on above: Performed By: #### T 3TOTAL #### [facility] [address] [place] [address] Dr. Maxwell Allen NEUT # 8.5 103/ul Critically high 1.4-6.5 [facility] Comment on above: Performed By: #### T 3TOTAL #### [facility] [address] [place] [address] Dr. Maxwell Allen Neutrophils/100 WBC (Bld) 76.2 % Critically high 43.0-75.0 [facility] Comment on above: Performed By: #### T 3TOTAL #### [facility] [address] [place] [address] Dr. Maxwell Allen Platelet mean volume (Bld) [Entitic vol] 9.6 fL Normal 9.5-13.5 [facility] Comment on above: Performed By: #### T 3TOTAL #### [facility] [address] [place] [address] Dr. Maxwell Allen PLT 267 103/ul Normal 150-450 [facility] Comment on above: Performed By: #### T 3TOTAL #### [facility] [address] [place] [address] Dr. Maxwell Allen RBC 4.69 106/ul Normal 4.20-5.40 [facility] Comment on above: Performed By: #### T 3TOTAL #### [facility] [address] [place] [address] Dr. Maxwell Allen WBC 11.2 103/ul Critically high 4.0-11.0 [facility] Comment on above: Performed By: #### T 3TOTAL #### [facility] [address] [place] [address] Dr. Maxwell Allen CULTURE BLOODon 04-08-2021 Microscopic examination of blood, culture Culture Observations: NO GROWTH AT 5 DAYS. Normal [facility] Comment on above: Performed By: #### B LDCX1 #### [facility] [address] [place] [address] Dr. Maxwell Allen PROF 14(COMP METB)on 021 Albumin [Mass/Vol] 3.5 g/dL Normal 3.5-5.0 [facility] Comment on above: Performed By: #### T 3TOTAL #### [facility] [address] [place] [address] Dr. Maxwell Allen Albumin/Globulin [Mass ratio] 0.9 {ratio} Normal [facility] Comment on above: Performed By: #### T 3TOTAL #### [facility] [address] [place] [address] Dr. Maxwell Allen ALP [Catalytic activity/Vol] 59 U/L Normal 38-126 [facility] Comment on above: Performed By: #### T 3TOTAL #### [facility] [address] [place] [address] Dr. Maxwell Allen ALT [Catalytic activity/Vol] 31 U/L Normal 9-52 [facility] Comment on above: Performed By: #### T 3TOTAL #### [facility] [address] [place] [address] Dr. Maxwell Allen Anion gap [Moles/Vol] 10.6 mmol/L Normal [facility] Comment on above: Performed By: #### T 3TOTAL #### [facility] [address] [place] [address] Dr. Maxwell Allen AST [Catalytic activity/Vol] 14 U/L Normal 14-36 [facility] Comment on above: Performed By: #### T 3TOTAL #### [facility] [address] [place] [address] Dr. Maxwell Allen Bilirubin [Mass/Vol] 0.5 mg/dL Normal 0.2-1.3 [facility] Comment on above: Performed By: #### T 3TOTAL #### [facility] [address] [place] [address] Dr. Maxwell Allen Calcium [Mass/Vol] 8.9 mg/dL Normal 8.4-10.2 [facility] Comment on above: Performed By: #### T 3TOTAL #### [facility] [address] [place] [address] Dr. Maxwell Allen Chloride [Moles/Vol] 103 mmol/L Normal 98-107 [facility] Comment on above: Performed By: #### T 3TOTAL #### [facility] [address] [place] [address] Dr. Maxwell Allen CO2 [Moles/Vol] 27.2 mmol/L Normal 22.0-30.0 [facility] Comment on above: Performed By: #### T 3TOTAL #### [facility] [address] [address] [address] Maxwell Allen Creatinine [Mass/Vol] 0.72 mg/dL Normal 0.52-1.04 [facility] Comment on above: Performed By: #### T 3TOTAL #### [facility] [address] [address] [address] Maxwell Allen EGFR-AF KUWAITI >60 Normal >=60 [facility] Comment on above: Performed By: #### T 3TOTAL #### [facility] [address] [address] [address] Maxwell Allen EGFR-NON AF KUWAITI >60 Normal >=60 [facility] Comment on above: Performed By: #### T 3TOTAL #### [facility] [address] [address] [address] Maxwell Allen Globulin (S) [Mass/Vol] 3.9 g/dL Normal [facility] Comment on above: Performed By: #### T 3TOTAL #### [facility] [address] [address] [address] Maxwell Allen Glucose [Mass/Vol] 122 mg/dL Critically high 74-[address] [facility] Comment on above: Performed By: #### T 3TOTAL #### [facility] [address] [address] [address] Maxwell Allen Potassium [Moles/Vol] 3.8 mmol/L Normal 3.4-5.0 [facility] Comment on above: Performed By: #### T 3TOTAL #### [facility] [address] [address] [address] Maxwell Allen Protein [Mass/Vol] 7.4 g/dL Normal 6.1-8.2 [facility] Comment on above: Performed By: #### T 3TOTAL #### [facility] [address] [address] [address] Maxwell Allen Sodium [Moles/Vol] 137 mmol/L Normal 137-145 [facility] Comment on above: Performed By: #### T 3TOTAL #### [facility] [address] [place], [place] [address] Dr. Maxwell Allen Urea nitrogen [Mass/Vol] 10.0 mg/dL Normal 7.0-17.0 [facility] Comment on above: Performed By: #### T 3TOTAL #### [facility] [address] [place], [place] [address] Dr. Maxwell Allen Urea nitrogen/Creatinine [Mass ratio] 13.9 mg/mg Normal [facility] Comment on above: Performed By: #### T 3TOTAL #### [facility] [address] [place], [place] [address] Dr. Maxwell Allen TSHon 07-31-2017 Thyrotropin Qn 2.88 m[IU]/L Normal 0.44 - 3.98 [facility] Comment on above: Result Comment: TSH testing is performed using different testing methodology at [facility] than at other [facility]. Direct result comparisons should only be made within the same method. . Patients receiving more than 5 mg/day of biotin may have interference in test results. A sample should be taken no sooner than eight hours after previous dose. Contact [phone] for additional information. Performed By: #### T SH2 #### [facility] [address] [place] [address] Vital Signs Date Time Vital Sign Value Performing Clinician Facility 02-02-2024 15:00-0400 Body mass index (BMI) [Ratio] 37.02 kg/m2 [email or web address] DO Work Phone: [facility] 02-02-2024 15:00-0400 Body weight 94.8 kg [email or web address] DO Work Phone: [facility] 02-02-2024 15:00-0400 Diastolic blood pressure 78 mm[Hg] [employer] Ajith DO Work Phone: [facility] 02-02-2024 15:00-0400 Systolic blood pressure 124 mm[Hg] [email or web address] DO Work Phone: [facility] 01-13-2024 09:58-0400 Body mass index (BMI) [Ratio] 36.56 kg/m2 Quinn Ajith DO Work Phone: [facility] 01-13-2024 09:58-0400 Body weight 93.62 kg Quinn Ajith DO Work Phone: [facility] 01-13-2024 09:58-0400 Diastolic blood pressure 80 mm[Hg] Quinn Ajith DO Work Phone: [facility] 01-13-2024 09:58-0400 Systolic blood pressure 130 mm[Hg] Quinn Ajith DO Work Phone: [facility] 01-08-2023 10:00-0400 Body height 157.48 cm Mirian Ponce Other [employer] Other 01-08-2023 10:00-0400 Body mass index (BMI) [Ratio] 36.03 kg/m2 Mirian Ponce Other [employer] Other 01-08-2023 10:00-0400 Body weight 89.36 kg Mirian Ponce Other [employer] Other 01-08-2023 10:00-0400 Diastolic blood pressure 72 mm[Hg] Mirian Ponce Other [employer] Other 01-08-2023 10:00-0400 Systolic blood pressure 128 mm[Hg] Mirian Ponce Other [employer] Other Encounters Encounter Date Encounter Type Care Provider Facility Start: 03-13-2024 End: 03-13-2024 Clinisync Result Encounter Quinn Ajith DO Work Phone: [facility] External Department Unsolicited Start: 03-13-2024 End: 03-13-2024 Clinisync Result Encounter Quinn Ajith DO Work Phone: [facility] External Department Unsolicited Start: 02-03-2024 End: 02-03-2024 ambulatory Quinn Ajith [facility] Work Phone: Start: 02-03-2024 End: 02-03-2024 Departed Referred DO Quinn Ajith Work Phone: [facility] Start: 02-02-2024 End: 02-02-2024 Patient encounter procedure Quinn Ajith DO Work Phone: [facility] Comment on above: ASCUS with positive high risk HPV cervical Start: 02-02-2024 End: 02-02-2024 ambulatory QUINN AJITH Not Available Start: 01-27-2024 Non-patient / Non-visit DO Cor ey Ajith [facility] Phone[facility] Work Phone: Start: 01-27-2024 End: 01-28-2024 Clinisync Result Encounter Quinn Ajith DO Work Phone: [facility] Unsolicited Start: 01-27-2024 End: 01-28-2024 Clinisync Result Encounter Quinn Ajith DO Work Phone: [facility] Unsolicited Start: 01-13-2024 End: 01-13-2024 Bamboo flowsheet Quinn Ajith DO Work Phone: [facility] Start: 01-13-2024 End: 01-20-2024 Bamboo flowsheet Quinn Ajith DO Work Phone: [facility] Start: 01-13-2024 End: 01-20-2024 Clinisync Result Encounter Quinn Ajith DO Work Phone: [facility] Unsolicited Start: 01-13-2024 End: 01-14-2024 External Result Encounter Quinn Ajith DO Work Phone: [facility] Unsolicited Start: 01-13-2024 End: 01-13-2024 Patient encounter procedure Quinn Ajith DO Work Phone: [facility] Healthcare Work Phone: Start: 01-13-2024 End: 01-13-2024 Patient encounter status Quinn Canseco DO Work Phone: [facility] Start: 01-13-2024 End: 01-13-2024 Periodic preventive med est patient 18-39 yrs Quinn Canseco DO Work Phone: [facility] Comment on above: Well woman exam with routine gynecological exam; Breast cancer screening by mammogram; Abnormal TSH; STD exposure; Sexually transmitted disease exposure; Wellness examination; control counseling Start: 01-13-2024 Non-patient / Non-visit DO Braulio Canseco Work Phone: [facility] [employer] Work Phone: Start: 01-13-2024 End: 01-13-2024 ambulatory QUINN CANSECO Not Available Start: 01-30-2023 End: 01-30-2023 ambulatory Mirian Ponce Other [employer] Other Start: 01-30-2023 Telephone encounter Mirian oPnce [facility] Start: 01-08-2023 Encounter for genera l adult medical examination without abnormal findings Mirian Ponce [facility] Start: 01-08-2023 Encounter for gynecological examination (general) (routine) without abnormal findings Mirian Ponce [facility] Start: 01-08-2023 Periodic preventive med est patient 18-39 yrs Mirian Ponce [facility] Start: 01-08-2023 End: 01-08-2023 ambulatory Mirian Ponce Other [employer] Other Start: 01-08-2023 End: 01-08-2023 Departed Referred MD Mirian Ponce Work Phone: [facility] [place] Work Phone: Start: 01-07-2023 ambulatory Marielos L Silvia Facility: [facility] Start: 12-10-2022 ambulatory Marielos Silvia Facility:[facility] Start: 03-18-2022 End: 03-19-[address] NISHA MARIEE Facility:[facility] Start: 02-08-2022 End: 02-09-[address] NISHA MARIEE Facility:[facility] Start: 01-29-2022 End: 01-29-[address] NISHA MARIEE Facility:[facility] Start: 01-29-2022 Gynecological examin ation normal Mirian Ponce Other [employer] Other Start: 04-08-2021 End: 04-08-[address] MIRIAN PONCE Facility:[facility] Start: 01-22-2021 Adult health examination Johanny Ponce Other [employer] Other Start: 08-14-2017 Patient encounter procedure Salome Laughlin Facility:[facility] Start: 07-31-2017 Patient encounter procedure Salome Laughlin Facility:[facility] Start: 06-20-2017 Ambulatory Salome Laughlin Facil ity:[facility] Procedures Date Procedure Procedure Detail Performing Clinician Start: 03-13-2024 ALL THYROID STIM HORMONE Quinn Jaith DO Work Phone: Start: 02-02-2024 COLPOSCOPY Quinn Fazi o DO Work Phone: Start: 02-02-2024 Urine test visual color cmprsn meths Quinn Ajith DO Work Phone: Start: 01-27-2024 HIV AB/P24 AG WITH REFLEX Quinn Ajith DO Work Phone: Start: 01-13-2024 IGP,APTIMA HPV,AGE GDLN Quinn Ajith DO Work Phone: Start: 01-13-2024 URETHRITIS/DISCHARGE PLUS VAGINITIS (HTRX) Quinn Ajith DO Work Phone: Start: 02-08-2008 Contraception care education Mirian Ponce Other End: 04-22-2018 screening Mirian Ponce Other Counseling Mirian Ponce Other End: 08-07-2020 Depression screening Mirian Kris Other Family planning education Barry gianfranco Kris Other End: 05-06-2018 visit Mirian Kris Other Plan of Treatment Date Care Activity Detail Author Start: 08-10-2024 End: 08-10-2024 Patient encounter procedure 08/10/2024 2:00 PM EDT Procedure Visit [facility] [address] [address] Quinn Canseco, DO [address], [facility] Start: 02-02-2024 End: 02-02-2024 Patient encounter procedure 02/02/2024 2:30 PM EDT Procedure Visit [facility] [address] [place] [address] Quinn Canseco, DO [address], [place] [address] [facility] Start: 02-02-2024 End: 02-01-2025 Colposcopy Colposcopy Procedures Routine ASCUS with positive high risk HPV cervical Expected: 02/02/2024 (Approximate), Expires: 02/01/2025 [facility] Work Phone: Comment on above: Expected: 02/02/2024 (Approximate), Expires: 02/01/2025 Start: 01-13-2024 End: 01-12-2025 Lipid 1996 panel - Serum or Plasma Lipid panel Lab Routine Wellness examination Expected: 01/13/2024 (Approximate), Expires: 01/12/2025 [facility] Comment on above: Expected: 01/13/2024 (Approximate), Expires: 01/12/2025 Start: 01-13-2024 End: 03-14-2025 MG Breast - bilateral Screening Bilateral screening mammogram Imaging Routine Breast cancer screening by mammogram Expected: 01/13/2024 (Approximate), Expires: 03/14/2025 [facility] Comment on above: Expected: 01/13/2024 (Approximate), Expires: 03/14/2025 Start: 01-13-2024 End: 01-13-2024 Patient encounter procedure 01/13/2024 10:00 AM EDT Office Visit [facility] [address] [address] Quinn Canseco, [address] [place] [address] Arrived [facility] Comment on above: Arrived Start: 01-08-2023 [facility] CBC W Auto Different ial panel - Blood CBC and differential Lab Routine Wellness examination Ordered: 01/13/2024 [facility] Comment on above: Ordered: 01/13/2024 CHLAMYDIA TRACHOMATI S (GENITO/STI) CHLAMYDIA TRACHOMATIS (GENITO/STI) Lab Routine STD exposure Ordered: 01/13/2024 [facility] Comment on above: Ordered: 01/13/2024 Comprehensive metabo lic 2000 panel - Serum or Plasma Comprehensive metabolic panel Lab Routine Wellness examination Ordered: 01/13/2024 [facility] Comment on above: Ordered: 01/13/2024 Cytology Cervical or vaginal smear or scraping study Pap Smear Pathology and Cytology Routine Well woman exam with routine gynecological exam Ordered: 01/13/2024 [facility] Work Phone: Comment on above: Ordered: 01/13/2024 Hemoglobin A1c/Hemoglobin.total in Blood Hemoglobin A1c Lab Routine Wellness examination Ordered: 01/13/2024 [facility] Comment on above: Ordered: 01/13/2024 Hepatitis B virus surface Ag [Presence] in Serum or Plasma by Immunoassay Hepatitis B surface antigen Lab Routine Sexually transmitted disease exposure Ordered: 01/13/2024 [facility] Comment on above: Ordered: 01/13/2024 HIV-1/HIV-2 antigen/antibody combination immunoassay HIV-1 and HIV-2 antibodies Lab Routine Sexually transmitted disease exposure Ordered: 01/13/2024 [facility] Comment on above: Ordered: 01/13/2024 Human papilloma viru s 16+18+31+33+35+39+45+51+ 52+56+58+59+66+68 DNA [Presence] in Cervix by Probe with signal amplification [facility] Human papilloma viru s DNA [Presence] in Unspecified specimen by Probe with amplification HPV DNA probe, amplified Microbiology Routine Well woman exam with routine gynecological exam Ordered: 01/13/2024 [facility] Comment on above: Ordered: 01/13/2024 Neisseria gonorrhoea e DNA [Presence] in Unspecified specimen by ELOISE with probe detection Neisseria gonorrhea DNA probe, direct Lab Routine STD exposure Ordered: 01/13/2024 [facility] Comment on above: Ordered: 01/13/2024 Reagin Ab [Presence] in Serum by RPR RPR Lab Routine Sexually transmitted disease exposure Ordered: 01/13/2024 [facility] Comment on above: Ordered: 01/13/2024 SURESWAB(R) ADVANCED VAGINITIS PLUS, TMA SURESWAB(R) ADVANCED VAGINITIS PLUS, TMA Pathology and Cytology Routine STD exposure Ordered: 01/13/2024 [facility] Comment on above: Ordered: 01/13/2024 Thyrotropin [Units/volume] in Serum or Plasma TSH Lab Routine Abnormal TSH Ordered: 01/13/2024 [facility] Comment on above: Ordered: 01/13/2024 Payers Date Payer Category Payer Self-pay 2022 [facility] BC[employer] [id number] 2022 Unknown BCBS BCBS [id number] 2022-Present [phone] [address] [place] [address] [id number] 2022 Unknown [id number] 2019 Unknown [id number] 1984 Unknown [id number]. 356 1984 Unknown [id number]. 356 1984 Unknown [id number] [id number]. 593 1984 Unknown [id number] [id number]. 593 1984 Unknown [id number] [id number]. 593 1984 Unknown [id number] [id number]. 593 1984 Unknown [id number] [id number]. 727 1984 Unknown [id number] [id number]. 1259 1984 Unknown [id number] [id number]. 1259 Unknown [id number] Unknown [id number]. 531 Social History Date Type Detail Facility Sex Assigned At [employer] Other Start: 1985 Sex Assigned At Female [facility] Tobacco smoking status MIIS Tobacco smoking consumption unknown [facility] Start: 1985 Sex assigned at Not on file [facility] History of Present illness Narrative 02-02-2024 Concepcion Colin LPN - 02/02/2024 2:30 PM EDT Note Date & Type Note Facility 02-02-2024 History of Presen t illness Narrative Associated Order(s): Colposcopy Post-Procedure Diagnose(s): ASCUS with positive high risk HPV cervical Reason for Appointment: Patient ID: Graciela Salinas is a 38 y.o. female who presents for Abnormal Pap Smear (Pt present today for a colposcopy visit. Pt had an abnormal pap smear on 01/13/2024. (ASCUS HPV+)) Patient presents today for a Colposcopy appointment. MEDICATIONS Current Outpatient Medications Medication Instructions levothyroxine (SYNTHROID, LEVOXYL) 50 mcg, Oral, Daily Loratadine (Claritin) 10 MG capsule 1 capsule, Oral, Every 24 hours norgestimate-ethinyl estradiol (Susanna) 0.25-35 MG-MCG tablet 1 tablet, Oral, Daily ALLERGIES No Known Allergies SURGICAL HISTORY History reviewed. No pertinent surgical history. REVIEW OF SYSTEMS Review of Systems: Review of Systems All other systems reviewed and are negative. OBJECTIVE Objective: Physical Exam Constitutional: Appearance: Normal appearance. She is well-developed. Genitourinary: Vulva normal. Cardiovascular: Rate and Rhythm: Normal rate and regular rhythm. Pulmonary: Effort: Pulmonary effort is normal. Breath sounds: Normal breath sounds. Abdominal: General: Bowel sounds are normal. There is no distension. Palpations: Abdomen is soft. Tenderness: There is no abdominal tenderness. There is no guarding or rebound. Musculoskeletal: General: No swelling. Normal range of motion. Right lower leg: No edema. Left lower leg: No edema. Neurological: Mental Status: She is alert and oriented to person, place, and time. Skin: General: Skin is warm and dry. Psychiatric: Mood and Affect: Mood normal. Behavior: Behavior normal. Vitals and nursing note reviewed. Exam conducted with a rig mechanic present. Vitals: Estimated body mass index is 37.02 kg/m as calculated from the following: Height as of 23: 5' 3 . Weight as of this encounter: 209 lb. BP: 124/78 Patient's last menstrual period was 01/06/2024. ASSESSMENT & PLAN Assessment/Plan Encounter Diagnosis: ICD-10-CM 1. ASCUS with positive high risk HPV cervical R87.610 POCT , urine manually resulted R87.810 Colposcopy Colposcopy Date/Time: 02/02/2024 4:06 PM Performed by: Quinn Canseco DO Authorized by: Quinn Canseco DO Procedure location: cervix Consent: Patient questions answered: yes Risks and benefits of the procedure and its alternatives discussed: yes Consent obtained: Written Consent given by: Patient Indication: Cervical indication(s): HPV 16, HPV 18, HPV 45 and ASCUS Pre-procedure: Speculum was placed in the vagina: yes Prep solution(s): acetic acid Procedure: Colposcopy with: endocervical curettage Biopsy taken: no Cervix visibility: fully visualized Ferric subsulfate solution applied: no Tampon inserted: no Post-procedure: Patient tolerance of procedure: Patient tolerated the procedure well with no immediate complications Instructions and paperwork completed: yes Educational handouts given: yes Colposcopy: Patient is doing well and has no complaints. Pap results have been reviewed with the patient in great detail and patient voiced understanding. Patient presents today for a Colposcopy with ECC. Patient was placed in dorsal lithotomy position with feet in stirrups, a sterile speculum was placed into the vagina and the cervix was visualized. Cervix was cleansed with vinegar. Postprocedural instructions given. All if patients questions answered and she expressed understanding. Advised to call in interim with questions or concerns. Follow Up: Patient is to return in 6 months for Repeat Pap. Documented by Concepcion Colin LPN on behalf of: Quinn Canseco DO documented in this encounter [facility] History of Present illness Narrative 01-13-2024 Jordana Glover LPN - 01/13/2024 10:00 AM EDT Note Date & Type Note Facility 01-13-2024 History of Presen t illness Narrative Reason for Appointment: Patient ID: Graciela Salinas is a 38 y.o. female who presents for Well Women Visit Patient presents today for Annual Exam. MEDICATIONS Current Outpatient Medications Medication Instructions levothyroxine (SYNTHROID, LEVOXYL) 50 mcg, Oral, Daily Loratadine (Claritin) 10 MG capsule 1 capsule, Oral, Every 24 hours Susanna 0.25-35 MG-MCG tablet 1 tablet, Oral, Daily ALLERGIES No Known Allergies PROBLEMS Active Ambulatory Problems Diagnosis Date Noted No Active Ambulatory Problems Resolved Ambulatory Problems Diagnosis Date Noted No Resolved Ambulatory Problems No Additional Past Medical History HISTORY PAST MEDICAL HISTORY SOCIAL HISTORY History reviewed. No pertinent past medical history. Social History Tobacco Use Smoking status: Not on file Smokeless tobacco: Not on file Substance Use Topics Alcohol use: Not on file Drug use: Not on file FAMILY HISTORY No family history on file. SURGICAL HISTORY History reviewed. No pertinent surgical history. REVIEW OF SYSTEMS Review of Systems: Review of Systems Constitutional: Negative. HENT: Negative. Eyes: Negative. Respiratory: Negative. Cardiovascular: Negative. Gastrointestinal: Negative. Genitourinary: Negative. Musculoskeletal: Negative. Skin: Negative. Neurological: Negative. All other systems reviewed and are negative. Hematological: Negative. Endocrine: Negative. Allergic/Immunologic: Negative. OBJECTIVE Objective: Physical Exam Constitutional: Appearance: Normal appearance. She is well-developed. Genitourinary: Vulva normal. Breasts: Breasts are soft. Right: Normal. Left: Normal. Cardiovascular: Rate and Rhythm: Normal rate and regular rhythm. Pulmonary: Effort: Pulmonary effort is normal. Breath sounds: Normal breath sounds. Abdominal: General: Bowel sounds are normal. There is no distension. Palpations: Abdomen is soft. Tenderness: There is no abdominal tenderness. There is no guarding or rebound. Musculoskeletal: General: No swelling. Normal range of motion. Right lower leg: No edema. Left lower leg: No edema. Neurological: Mental Status: She is alert and oriented to person, place, and time. Skin: General: Skin is warm and dry. Psychiatric: Mood and Affect: Mood normal. Behavior: Behavior normal. Vitals and nursing note reviewed. Exam conducted with a rig mechanic present. Vitals: Estimated body mass index is 36.56 kg/m as calculated from the following: Height as of 09/17/22: 5' 3 . Weight as of this encounter: 206 lb 6.4 oz. BP: 130/80 Patient's last menstrual period was 01/06/2024. ASSESSMENT & PLAN ICD-10-CM 1. Well woman exam with routine gynecological exam Z01.419 Pap Smear HPV DNA probe, amplified Annual Exam: Patient presents today for an annual exam. Patient states she is doing well and has no complaints. Pap was obtained without difficulty. Pt given TSH order to have obtained in 6 Orders Placed This Encounter Procedures HPV DNA probe, amplified Follow Up: Patient is to return in one year for annual unless needed otherwise. Documented by Jordana Glover LPN on behalf of: Quinn Canseco DO documented in this encounter [facility] Evaluation note 01-08-2023 Note Date & Type [...] Z11.3) Dec, Wellness examination (ICD-10 - Z00.00) [employer] Other Evaluation note Note Date & Type Note Facility Evaluation note No assessment information [facility] Work Phone: Evaluation note Note Date & Type Note Facility Evaluation note No Information [employer] Other Evaluation note Note Date & Type Note Facility Evaluation note Diagnosis Well woman exam with routine gynecological exam Routine gynecological examination Breast cancer screening by mammogram Abnormal TSH STD exposure Sexually transmitted disease exposure Contact with or exposure to venereal diseases Wellness examination control counseling documented in this encounter [facility] Evaluation note Note Date & Type Note Facility Evaluation note Diagnosis ASCUS with positive high risk HPV cervical documented in this encounter [facility] History general Narrative - Reported Note Date & Type Note Facility History general Narrative - Reported Type Medical History Adult hypothyroidism Medical History HPV in female Medical History Bronchitis Medical History Asthma, intermittent with acute exacerbation Medical History Acute URI Surgical History Hospitalization History SEE SURGICAL HX [employer] Other Summary Purpose Family History Relationship Condition Age at Onset Recorded Date/T stacy father Diabetes mellitus Unknown Seizure disorder Unknown mother Hypertension Unknown Advance Directives Advance Directive Response Recorded Date/ Time Advance Directives No January 14, 2023 8:48am Additional Source Comments INFORMATION SOURCE (unrecogn ized section and content) DATE CREATED AUTHOR 11/17/2017 [facility] DATE CREATED AUTHOR AUTHOR'S ORGANIZ ATION 07/06/2018 [facility] DATE CREATED AUTHOR AUTHOR'S ORGANIZ ATION 03/24/2022 [facility] DATE CREATED AUTHOR AUTHOR'S ORGANIZ ATION 12/11/2022 [facility] DATE CREATED AUTHOR AUTHOR'S ORGANIZ ATION 02/03/2024 [facility] DATE CREATED AUTHOR AUTHOR'S ORGANIZ ATION 02/12/2024 [facility] REASON FOR VISIT (unrecogniz ed section and content) Reason Comments Well Women Visit Reason Comments Abnormal Pap Smear Pt present today for a colposcopy visit. Pt had an abnormal pap smear on 01/13/2024. (ASCUS HPV+) Care Teams (unrecognized sec tion and content) [...] BE BASED ON THE PRIMARY CLINICAL RECORDS. [employer] provides no warranty or guarantee of the accuracy or completeness of information in this document.
== END 2024-08-10 21:29 | disposition home or self-care (01) ==
LOC: LAB 21:28
PROVIDERS: PCP Family Medicine; Visit Provider Obstetrics & Gynecology
DX: R87.610 Atypical squamous cells of undetermined significance on cytologic smear of cervix (ASC-US) (principal); R87.810 Cervical high risk human papillomavirus (HPV) DNA test positive
CPT/HCPCS: 87624; 88175

== ENCOUNTER 2024-08-26 10:28 | Outpatient (OUT) | payer BC, SELFPAY ==
--- NOTE | 2024-08-26 10:30 | MM_ITS ---
Patient Name: VIRAL MERINO MR#: [id number] : 1985 Exam Date: 08/26/2024 Ordering Doctor: DR Los Canseco . RADIOLOGY REPORT PROCEDURE: MM TOMOSYNTHESIS SCREENING BI COMPARISON: None. INDICATIONS: Breast Cancer Screening Calculator Name NCI Breast Cancer Risk Assessment Tool 5 Year Breast Cancer Risk 0.60% Lifetime Breast Cancer Risk 11.10% Personal Breast Cancer No Personal Ovarian Cancer No Treatments None Family Cancers Grandfather-maternal with lymphoma cancer at age 68; Grandfather-paternal with colon cancer at age ~65; Grandfather-paternal with prostate cancer at age ~70. LOCATION: [facility] BREAST COMPOSITION: There are scattered areas of fibroglandular density. FINDINGS: DIAGNOSTIC CATEGORY 1--NEGATIVE. RIGHT BREAST: No significant suspicious finding. LEFT BREAST: No significant suspicious finding. RECOMMENDATIONS: ROUTINE MAMMOGRAM AND CLINICAL EVALUATION IN 12 MONTHS. PLEASE NOTE: A NORMAL MAMMOGRAM DOES NOT EXCLUDE THE POSSIBILITY OF BREAST CANCER. A CLINICALLY SUSPICIOUS PALPABLE LUMP SHOULD BE BIOPSIED. Dictated by: Arnol Mcfadden DO on 08/26/2024 at 16:31 Approved by: Arnol Mcfadden DO on 08/26/2024 at 16:33
== END 2024-08-26 10:29 | disposition home or self-care (01) ==
LOC: MAMMO 10:28
PROVIDERS: PCP Family Medicine; Visit Provider Obstetrics & Gynecology
DX: Z12.31 Encounter for screening mammogram for malignant neoplasm of breast (principal); Z80.7 Family history of other malignant neoplasms of lymphoid, hematopoietic and related tissues; Z80.0 Family history of malignant neoplasm of digestive organs; Z80.42 Family history of malignant neoplasm of prostate
CPT/HCPCS: 77063; 77067

== ENCOUNTER 2025-02-15 19:31 | Outpatient (REF) | payer BC, SELFPAY ==
--- OUTSIDE RECORDS SUMMARY | 2025-02-15 13:10 | XMS_ITS | Encounter Summary ---
Author Organization [facility] Address [address] [place] [address] Care Team Providers Care Hospice Aide Name Role Phone Unavailable Primary Care Provider Unavailabl e Reason for Visit * Reason Comments Gynecologic Exam Encounter Details Date Type Department Care Team (Late st Contact Info) Description 02/15/2025 1:10 PM EDT Office Visit [facility] [facility] [address] [place] [id number] Los Canseco DO [address] [place] [address] Well woman exam with routine gynecological exam; Encounter for screening mammogram for malignant neoplasm of breast; Thyroid disorder Social History Tobacco Use Types Packs/Day Years Used Date Smoking Tobacco: Never Assessed Comments Unknown Sex and Gender Information Value Date Recorded Sex Assigned at Not on file Legal Sex Female 7:29 PM EDT Gender Identity Not on file Sexual Orientation Not on file documented as of this encounter Progress Notes * Jordana Glover LPN - 02/15/2025 1:10 PM EDT Reason for Appointment: Patient ID: Graciela Salinas is a 39 y.o. female who presents for Gynecologic Exam Patient presents today for Annual Exam. MEDICATIONS Current Outpatient Medications Medication Instructions Loratadine (Claritin) 10 MG capsule 1 capsule, Every 24 hours Susanna 0.25-35 MG-MCG tablet 1 tablet, Oral, Daily ALLERGIES No Known Allergies PROBLEMS Active Ambulatory Problems Diagnosis Date Noted ASCUS with positive high risk HPV cervical 02/02/2024 Resolved Ambulatory Problems Diagnosis Date Noted No Resolved Ambulatory Problems No Additional Past Medical History HISTORY PAST MEDICAL HISTORY SOCIAL HISTORY No past medical history on file. Social History Tobacco Use Smoking status: Not on file Smokeless tobacco: Not on file Substance Use Topics Alcohol use: Not on file Drug use: Not on file FAMILY HISTORY No family history on file. SURGICAL HISTORY No past surgical history on file. REVIEW OF SYSTEMS Review of Systems: Review [...] nursing note reviewed. Exam conducted with a manager of financial reporting present. Vitals: Estimated body mass index is 37.27 kg/m?? as calculated from the following: Height as of 09/17/22: 5' 3 . Weight as of 08/10/24: 210 lb 6.4 oz. BP: No LMP recorded. ASSESSMENT & PLAN ICD-10-CM 1. Well woman exam with routine gynecological exam Z01.419 Bilateral screening mammogram THIN PREP TIS PAP AND HR HPV DNA Bilateral screening mammogram 2. Encounter for screening mammogram for malignant neoplasm of breast Z12.31 Bilateral screening mammogram Bilateral screening mammogram Orders Placed This Encounter Procedures Bilateral screening mammogram Annual Wellness Exam: Patient presents today for routine annual exam. Patient states she has complaints of anxiety, discussed mechanisms to cope with anxiety. Patients vitals were reviewed and within normal limits. Growth and development is noted to be appropriate for age. Menstrual history is noted to be regular with no concerns reported. No mental health concerns was expressed. Pap Smear: Speculum was inserted into the vagina and pap was obtained without difficulty. HPV testing was performed per age guideline. Patient was advised that pap results could take anywhere from 7 to 10 days to receive and our office will reach out to the patient with those once we have them. Patient can also view results via [employer]. I reinforced importance of condom use for STI prevention. Patient declined cultures to be performed with today's visit. Breast Exam: Upon examination, clinical breast exam was noted to be normal and screening mammogram was ordered and given to patient to have obtained. Patient was counseled on breast self-awareness, including the importance of knowing what is normal for her own breasts and promptly reporting any changes such as new lumps, skin dimpling, nipple discharge, or pain. Screening mammogram was recommended annually. Discussed signs and symptoms of breast cancer and when to seek medical attention. Answered all patient questions. Contraceptive Counseling (if applicable): Patient is currently using oral contraception as a form of contraceptive. Patient doing well Follow Up: Patient is to return to our office in one year for annual exam unless needed otherwise. Documented by Jordana Glover LPN on behalf of: Los Canseco DO documented in this encounter Plan of Treatment Scheduled Orders Name Type Priority Associated Diagnoses Orde r Schedule Bilateral screening mammogram Imaging Routine Well woman exam with routine gynecological exam Encounter for screening mammogram for malignant neoplasm of breast Expected: 02/15/2025 (Approximate), Expires: 04/17/2026 THIN PREP TIS PAP AND HR HPV DNA Pathology and Cytology Routine Well woman exam with routine gynecological exam Ordered: 02/15/2025 TSH Lab Routine Thyroid disorder Ordered: 02/15/2025 T4, free Lab Routine Thyroid disorder Ordered: 02/15/2025 documented as of this encounter Visit Diagnoses Diagnosis Well woman exam with routine gynecological exam Routine gynecological examination Encounter for screening mammogram for malignant neoplasm of breast Thyroid disorder Unspecified disorder of thyroid documented in this encounter
--- OUTSIDE RECORDS SUMMARY | 2025-02-15 19:35 | XMS_ITS | CCD ---
Author Organization [facility] Care Team Providers Care Psych Tech Name Role Phone Salome Laughlin Unavailable Unavailable [...] Ponce Unavailable MD Mirian Ponce Attending Provider [phone] DO Quinn Canseco Attending Provider Quinn Canseco Attending Unavailable Quinn Canseco Admitting Unavailable Unavailable Primary Care Provider Unavailabl QUINN Pacheco Attending Unavailable QUINN CANSECO Attending Unavailable QUINN CANSECO Attending Unavailable Allergies Allergy Classification Reported Allergen(s) Allergy Type Date of Onset Reaction(s) Facility (1 source) No Known Medication Allergies; Translations: [No Known Medication Allergies] Propensity to adverse reactions (disorder) [facility] Repository Medications Current Medications Medication Drug Class(es) Dates Sig (Normalized) Sig (Original) ethinyl estradiol 0.035 mg / norgestimate 0.25 mg oral tablet (14 sources) Progestin, Estrogen Start: 01-17-2025 take 1 tablet by mouth once daily Susanna 0.25-35 MG-MCG tablet Indications: control counseling TAKE 1 TABLET BY MOUTH EVERY DAY 84 tablet 3 01/17/2025 Active Start: 01-13-2024 End: 01-12-2025 norgestimate-ethinyl estradi ol (Susanna) 0.25-35 MG-MCG tablet Indications: control counseling Take 1 tablet by mouth Daily 28 tablet 12 01/13/2024 01/12/2025 Active fluconazole 150 mg oral tablet (1 source) Azole Antifungal take 1 tablet by mouth once Fluconazole 150 MG 1 tablet Orally once for 1 days Active levothyroxine sodium 0.05 mg oral tablet (12 sources) l-Thyroxine Start: End: take 50 ug by mouth once daily Levothyroxine Active 50 MCG PO Daily July 30, 2023 10:32am take 1 tablet by bebeto th every twenty-four hours Levothyroxine Sodium 50 MCG 1 tablet Orally Once a day for 90 days Active loratadine 10 mg oral capsule (12 sources) take 1 capsule by mo uth once daily Loratadine (Claritin) 10 MG capsule Take 1 capsule by mouth 1 (one) time each day at the same time Active Susanna (2 sources) Susanna Active Problems Active Problems Problem Classification Problem Date Documented Date Episodic/Chronic Asthma (3 sources) Unspecified asthma, uncomplicated; Translations: [Exacerbation of intermittent asthma] Onset: 04-10-2021 Chronic Hemorrhage during ; abruptio placenta; placenta previa [...] positive] Onset: 11-16-2013 Resolved: 04-22-2018 Episodic Other screening for suspected conditions (not mental disorders or infectious disease) (15 sources) Encounter for screening for malignant neoplasm of cervix; Translations: [Urine test negative] Onset: 01-29-2022 Resolved: 07-22-2019 Episodic Other upper respiratory infections (6 sources) [...] Hypothyroidism, unspecified; Translations: [Hypothyroidism] Onset: 07-31-2017 Chronic Thyroid disorders (2 sources) Disorder of thyroid gland; Translations: [Disorder of thyroid, unspecified] 02-15-2025 Episodic Unclassified (2 sources) Encounter for fertility testing [...] 08-13-2016 Resolved: 07-22-2019 Episodic Cancer of cervix (11 sources) Cervicovaginal cytology: Low grade squamous intraepithelial lesion; Translations: [Low grade squamous intraepithelial lesion on cytologic smear of cervix (LGSIL)] Onset: 02-02-2024 Resolved: 09-01-2018 02-02-2024 Episodic Contraceptive and procreative management (4 sources) [...] 08-03-2015 Chronic Other aftercare (1 source) Other roasterman (current) drug therapy; Translations: [[employer]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 Ordering Physician: Quinn Canseco D.O. Results: Date of Service: 08/26/24 Follow Up: Procedure(s): MM tomosynthesis screening BI Accession Number(s): [id number] cc: Mirian Ponce M.D.; Quinn Canseco D.O. Patient Name: VIRAL MERINO MR#: [id number] : 1985 Exam Date: 08/26/2024 Ordering Doctor: DR Quinn Canseco . RADIOLOGY REPORT PROCEDURE: MM TOMOSYNTHESIS SCREENING BI COMPARISON: None. INDICATIONS: Breast Cancer Screening Calculator Name NCI Breast Cancer Risk Assessment Tool 5 Year Breast Cancer Risk 0.60% Lifetime Breast Cancer Risk 11.10% Personal Breast Cancer No Personal Ovarian Cancer No Treatments None Family Cancers Grandfather-maternal with lymphoma cancer at age 68; Grandfather-paternal with colon cancer at age 65; Grandfather-paternal with prostate cancer at age 70. LOCATION: [facility] BREAST COMPOSITION: There are scattered areas of fibroglandular density. FINDINGS: DIAGNOSTIC CATEGORY 1--NEGATIVE. RIGHT BREAST: No significant suspicious finding. LEFT BREAST: No significant suspicious finding. RECOMMENDATIONS: ROUTINE MAMMOGRAM AND CLINICAL EVALUATION IN 12 MONTHS. PLEASE NOTE: A NORMAL MAMMOGRAM DOES NOT EXCLUDE THE POSSIBILITY OF BREAST CANCER. A CLINICALLY SUSPICIOUS PALPABLE LUMP SHOULD BE BIOPSIED. Dictated by: Arnol Mcfadden DO on 08/26/2024 at 16:31 Approved by: Arnol Mcfadden DO on 08/26/2024 at 16:33 Dictated By: Arnol Mcfadden M.D. Signed By: 08/26/24 1634 DD/ 1633 TD/TT: Digital Strategist Senior Manager: [facility] Radiology, Radiologist, MD - 08/26/2024 [place] [address] Mammography Report Signed Patient: VIRAL MERINO MR#: [id number] : 1985 Acct:[id number] Age/Sex: 39 / F ADM Date: 08/26/24 Loc: MAMMO Attending Dr: Quinn Canseco D.O. Ordering Physician: Quinn Canseco D.O. Results: Date of Service: 08/26/24 Follow Up: Procedure(s): MM tomosynthesis screening BI Accession Number(s): [id number] cc: Mirian Ponce M.D.; Quinn Canseco D.O. Patient Name: VIRAL MERINO MR#: [id number] : 1985 Exam Date: 08/26/2024 Ordering Doctor: DR Quinn Canseco . RADIOLOGY REPORT PROCEDURE: MM TOMOSYNTHESIS SCREENING BI COMPARISON: None. INDICATIONS: Breast Cancer Screening Calculator Name NCI Breast Cancer Risk Assessment Tool 5 Year Breast Cancer Risk 0.60% Lifetime Breast Cancer Risk 11.10% Personal Breast Cancer No Personal Ovarian Cancer No Treatments None Family Cancers Grandfather-maternal with lymphoma cancer at age 68; Grandfather-paternal with colon cancer at age 65; Grandfather-paternal with prostate cancer at age 70. LOCATION: [facility] BREAST COMPOSITION: There are scattered areas of fibroglandular density. FINDINGS: DIAGNOSTIC CATEGORY 1--NEGATIVE. RIGHT BREAST: No significant suspicious finding. LEFT BREAST: No significant suspicious finding. RECOMMENDATIONS: ROUTINE MAMMOGRAM AND CLINICAL EVALUATION IN 12 MONTHS. PLEASE NOTE: A NORMAL MAMMOGRAM DOES NOT EXCLUDE THE POSSIBILITY OF BREAST CANCER. A CLINICALLY SUSPICIOUS PALPABLE LUMP SHOULD BE BIOPSIED. Dictated by: Arnol Mcfadden DO on 08/26/2024 at 16:31 Approved by: Arnol Mcfadden DO on 08/26/2024 at 16:33 Dictated By: Arnol Mcfadden M.D. Signed By: 08/26/24 1634 DD/ 32 TD/TT: Digital Strategist Senior Manager: [facility] Radiology Study observation (narrative) [facility] MM TOMOSYNTHESIS SCREENING B IOrdered By: Radiologist Radiology on 08-26-2024 [facility] Work Phone: ALL THYROID STIM HORMONEon 1 TSH Qn 3.041 m[IU]/L [facility] Colposcopyon 02-02-2024 Concepcion Colin LPN 02/18/2024 11:12 AM Colposcopy Date/Time: 02/02/2024 4:06 [...] paperwork completed: yes Educational handouts given: yes [facility] HCG ( test) Ql (U)o n 02-02-2024 Interpretation and review of laboratory results Normal [facility] Preg Test, Ur Negative Critical access hospital Yunier 02-02-2024 L Specimen: [id number] Received: 02/04/246 Status: ARIES Bhatti Num: [id number] Spec Type: Surgical Subm Dr: Quinn Canseco Tissues: A Endocervix - Curettings (ECC) Procedures: HE/2, Gross/Micro L4 Age/ Patient Sex Location Account Attending Physician Kendal Merinoe 38/F LABELL [id number] Quinn Canseco SPEC NUM: [id number] RECD: 02/04/24 STATUS: ARIES MAGY NUM: [id number] ALESIA: 02/02/24- SUBM DR: Quinn Canseco ENTERED: 02/04/24-[address]: Andrez,Lab SPEC TYPE: Surgical DEPT: ZHANNA RICHTER ENTERED BY: [id number] RECV BY: [id number] ORDERED: HE/2, Gross/Micro L4 ORDERED: HE/2, Gross/Micro L4 Pathological Diagnosis Endocervix, curettage: Fibrinopurulent exudate, nondiagnostic. Clinical Information ASCUS HPV positive Gross Description Specimen was received in formalin with the patient's name and ECC and consists of a single loera portion of soft tissue measuring 0.6 cm in greatest dimension. The specimen is entirely submitted in cassette A1. CPT Codes 39175 -------- -------- Specimen: [id number] Received: 02/04/24 Status: ARIES Magy Num: [id number] Spec Type: Surgical Subm Dr: Quinn Canseco Tissues: A Endocervix - Curettings (ECC) Procedures: HE/2, Gross/Micro L4 -------- Patient: Viral Merino [id number] (Continued) -------- Signed (signature on file) Brannon Huff MD 02/10/24 1507 Normal [facility] HIV AB/P24 AG WITH REFLEXon 01-28-2024 HIV AB/P24 AG SCREEN Non-Reactive Non Reactive [facility] Comment on above: HIV-1/HIV-2 antibodi es and HIV-1 p24 antigen were NOT detected. There is no laboratory evidence of HIV infection. HIV Negative Performed at: [facility] [address] [id number] Turkey Farmer: Christophe Moreno PhD, Phone: [phone] [facility] HBV surface Ag IA Qlon 01-26 Hepatitis B Surface Antigen Negative Negative [facility] Comment on above: Performed at: [facility] [id number] Director: Christophe Moreno PhD, Phone: [phone] Performed at: [facility] [place] [id number] Director: Christophe Moreno PhD, Phone: [phone] HIV 1 and HIV-2 antibody ass ay with HIV-1 p24 antigen detectionon 01-27-2024 HIV 1+2 Ab+HIV1 p24 Ag IA Ql Non-Reactive Non Reactive [facility] Comment on above: HIV-1/HIV-2 antibodi es and HIV-1 p24 antigen were NOTdetected. There is no laboratory evidence of HIV infection.HIV NegativePerformed at: [facility] [place], [place] [id number] Director: Christophe Moreno PhD, Phone: [phone] No Panel Informationon 01-26 RPR Quantitative Confirmation Non Reactive titer NonRea<1:1 [facility] Comment on above: Please Note: This te st does not meet current guidelines forscreening and diagnosis of syphilis. This test isintended for following treatment response in patients beingtreated for syphilis infection. To screen for syphilisinfection, a reflex cascade that includes both RPR and atreponema-specific assay should be utilized, such asTreponema pallidum (Syphilis) Screening [place] (833066) orRapid Plasma Reagin (RPR) Test With Reflex to QuantitativeRPR and Confirmatory Treponema pallidum Antibodies(832754).Performed at: [facility] [id number] Director: Christophe Moreno PhD, Phone: [phone] IGP,APTIMA HPV,AGE GDLNon AGE GDLN ACOG TESTING Note . [facility] Comment on above: TESTS RESULT FLAG UN ITS REF RANGE LAB Clinician Provided Cytology Information Source.............Cervix;Endocervix No. of containers..01 ThinPrep Vial Age Algo ACOG Mar... FLAG LEGEND: L-Low Normal,H-High Normal,LL-Alert Low,HH-Alert High <-Panic Low,>-Panic High,A-Abnormal,AA-Critical Abnormal Performed at: 01 =[address] [address] Pam Moss MD, HPV APTIMA Positive Abnormal Negative [facility] Comment on above: This nucleic acid am plification test detects fourteen high- risk HPV types (16,18,31,33,35,39,45,51,52,56,58,59,66,68) without differentiation. Performed at: =[address] [id number] Turkey Farmer: Pam Moss MD, Phone: [phone] Performed at: [address] [id number] [place] Farmer: Pam Moss MD, Phone: [phone] IGP, APTIMA HPV, RFX 16/18,45 Note Abnormal . [facility] Comment on above: TESTS RESULT FLAG UN ITS REF RANGE LAB DIAGNOSIS: [A] 02 EPITHELIAL CELL ABNORMALITY. ATYPICAL SQUAMOUS CELLS OF UNDETERMINED SIGNIFICANCE (ASC-US). Specimen adequacy: 02 Satisfactory for evaluation. Endocervical and/or squamous metaplastic cells (endocervical component) are present. Performed by: 03 Luis Tinajero, Porter Sample Case (ASCP) Electronically si... 02 Hanane Lares MD, [...] High,A-Abnormal,AA-Critical Abnormal Performed at: [address] [facility] [address] [address] Pam Moss MD, 03 KWCYT [facility] [place] [facility] [address] [address] [place] [address] Michael Smith MD, Interpretation and review of laboratory results Abnormal [facility] BRUSH-SPATULA CERVIX ENDOCERVIX [facility] URETHRITIS/DISCHARGE PLUS VA GINITIS (HTRX)on 01-14-2024 ATOPOBIUM VAGINAE 0.000 [facility] ATOPOBIUM VAGINAE Not detected [facility] BVAB 2,3 (BACTERIAL VAGINOSIS ASSOCIATED BACTERIA 2, 3); MOBILUNCUS SPP 0.000 [facility] BVAB 2,3 (BACTERIAL VAGINOSIS ASSOCIATED BACTERIA [...] Probe+sig amp Ql (Cvx) Positive Abnormal Negative [facility] Comment on above: This nucleic acid am plification test detects fourteen high- risk HPV types (16,18,31,33,35,39,45,51,52,56,58,59,66,68)without differentiation.Performed at: =G - [facility] [id number] Director: Pam Moss MD, Phone: [phone] at: - [facility] [address] [id number] Director: Pam Moss MD, Phone: [phone] No Panel Informationon 01-12 HPV High Risk Other Comment Note Abnormal . [facility] Comment on above: TESTS RESULT FLAG UN ITS REF RANGE LAB D IAGNOSIS: [A] 02 EPITHELIAL CELL ABNORMALITY. ATYPICAL SQUAMOUS CELLS OF UNDETERMINED SIGNIFICANCE (ASC-US).Specimen adequacy: 02 Satisfactory for evaluation. Endocervical and/or squamous metaplastic cells (endocervical component) are present.Performed by: 03 Luis Tinajero, [place] Sample Case (ASCP)Electronically si... 02 Hanane Lares MD, Pathologist. [...] Low,>-Panic High,A-Abnormal,AA-Critical Abnormal ----Performed at:02 WB [facility] [address] [address] Pam Moss MD, 03 KWCYT [facility] [place] [facility] [address] [address] [place] [address] Michael Smith MD, Reference Lab Test Patient Age Note . [facility] Comment on above: TESTS RESULT FLAG UN ITS REF RANGE LAB Clinician Provided Cytology Information Source.............Cervix;Endocervix No. of containers..01 ThinPrep VialAge Javier SANCHEZ Mar... FLAG LEGEND: L-Low Normal,H-High Normal,LL-Alert Low,HH-Alert High <-Panic Low,>-Panic High,A-Abnormal,AA-Critical Abnormal ----Performed at:01 =G [facility] [address] Pam Moss MD, THYR STIM IMMUNOGLOBULINon 1 Thyroid Sim Immunoglobulin <0.10 Normal 0.00-0.55 [facility] Comment on above: Performed By: #### T 3TOTAL #### [facility] [address] [place] [address] Dr. Maxwell Allen T3, TOTAL (TRIIODOTHYRONINE) on 03-19-2022 T3, TOTAL 119 ng/dL Normal 71-180 [facility] Comment on above: Performed By: #### T 3TOTAL #### [facility] [address] [place] [address] Dr. Maxwell Allen FREE T4on 03-18-2022 Free T4 [Mass/Vol] 0.96 ng/dL Normal 0.76-1.46 [facility] Comment on above: Performed By: #### F T4 #### [facility] [address] [place] [address] Dr. Maxwell Allen T4on 03-18-2022 T4 [Mass/Vol] 9.20 ug/dL Normal 4.80-13.90 [facility] Comment on above: Performed By: #### T 4, TSH #### [facility] [address] [place] [address] Dr. Maxwell Allen TSHon 03-18-2022 TSH 1.950 uIU/mL Normal 0.358-3.740 [facility] Comment on above: Performed By: #### T 4, TSH #### [facility] [address] [place] [address] Dr. Maxwlel Allen THYROID-STIMULATING IMMUNOGL OBULINon 02-11-2022 Thyroid Sim Immunoglobulin <0.10 Normal 0.00-0.55 [facility] Comment on above: Performed By: #### T NAVA #### [facility] [address] [place] [address] Dr. Maxwell Allen T3, TOTAL (TRIIODOTHYRONINE) on 02-09-2022 T3, TOTAL 116 ng/dL Normal 71-180 [facility] Comment on above: Performed By: #### T 3TOTAL #### [facility] [address] [place] [address] Dr. Maxwell Allen T4 LABCORPon 02-09-2022 T4 [Mass/Vol] 7.8 ug/dL Normal 4.5-12.0 [facility] Comment on above: Performed By: #### T 4LC #### [facility] [address] [place] [address] Dr. Maxwell Allen FREE T4on 02-08-2022 Free T4 [Mass/Vol] 0.85 ng/dL Normal 0.76-1.46 [facility] Comment on above: Performed By: #### F T4 #### [facility] [address] [place] [address] Dr. Maxwell Allen TSHon 02-08-2022 TSH 4.142 uIU/mL Critically high 0.358-3.740 [facility] Comment on above: Performed By: #### T 3TOTAL #### [facility] [address] [place] [address] Dr. Maxwell Allen PAP ACOG PANEL 2: 30 to 65on 02-04-2022 . . Normal [facility] Comment on above: Result Comment: Perf ormed at: WB Performed By: #### 4 [id number] #### [facility] [address] [place] [address] Dr. Maxwell Allen Age Gdln ACOG Testing 30-65 Normal [facility] Comment on above: Performed By: #### 4 [id number] #### [facility] [address] [place] [address] Dr. Maxwell Allen DIAGNOSIS: Comment Normal [facility] Comment on above: Result Comment: NEGA TIVE FOR INTRAEPITHELIAL LESION OR MALIGNANCY. Performed at: WB Performed By: #### 4 [id number] #### [facility] [address] [place] [address] Dr. Maxwell Allen HPV Aptima Negative Normal Negative [facility] Comment on above: Result Comment: This nucleic acid amplification test detects fourteen high-risk HPV types (16,18,31,33,35,39,45,51,52,56,58,59,66,68) without differentiation. Performed at: =G Performed By: #### 4 [id number] #### [facility] [address] [place] [address] Dr. Maxwell Allen Methodology: Comment Normal [facility] Comment on above: Result Comment: This liquid based ThinPrep(R) pap test was screened with the use of an image guided system. Performed at: WB Performed By: #### 4 [id number] #### [facility] [address] [place] [address] Dr. Maxwell Allen Note: Comment Normal [facility] Comment on above: Result Comment: The Pap smear is a screening test designed to aid in the detection of premalignant and malignant conditions of the uterine cervix. It is not a diagnostic procedure and should not be used as the sole means of detecting cervical cancer. Both false-positive and false-negative reports do occur. . Performed at: WB Performed By: #### 4 [id number] #### [facility] [address] [place] [address] Dr. Maxwell Allen Performed by: Comment Normal [facility] Comment on above: Result Comment: Loreto Hayden, Porter Sample Case (ASCP) Performed at: WB Performed By: #### 4 [id number] #### [facility] [address] [place] [address] Dr. Maxwell Allen Specimen adequacy: Comment Normal [facility] Comment on above: Result Comment: Sati sfactory for evaluation. Endocervical and/or squamous metaplastic cells (endocervical component) are present. Performed at: WB Performed By: #### 4 [id number] #### [facility] [address] [place] [address] Dr. Maxwell Allen CBC AUTO DIFFon 04-08-2021 BASO # 0.1 103/ul Normal 0.0-0.1 [facility] Comment on above: Performed By: #### T 3TOTAL #### [facility] [address] [place] [address] Dr. Maxwell Allen Basophils/100 WBC (Bld) 0.5 % Normal 0.2-2.0 [facility] Comment on above: Performed By: #### T 3TOTAL #### [facility] [address] [place] [address] Dr. Maxwell Allen EO # 0.2 103/ul Normal 0.0-0.7 [facility] Comment on above: Performed By: #### T 3TOTAL #### [facility] [address] [place] [address] Dr. Maxwell Allen Eosinophils/100 WBC (Bld) 1.3 % Normal 0.9-7.0 [facility] Comment on above: Performed By: #### T 3TOTAL #### [facility] [address] [place] [address] Dr. Maxwlel Allen Erythrocyte distribution width (RBC) [Ratio] 14.7 % Normal 11.0-15.0 [facility] Comment on above: Performed By: #### T 3TOTAL #### [facility] [address] [place] [address] Dr. Maxwell Allen Hematocrit (Bld) [Volume fraction] 38.1 % Normal 36.0-48.0 [facility] Comment on above: Performed By: #### T 3TOTAL #### [facility] [address] [place] [address] Dr. Maxwell Allen Hemoglobin (Bld) [Mass/Vol] 11.8 g/dL Critically low 12.0-16.0 [facility] Comment on above: Performed By: #### T 3TOTAL #### [facility] [address] [place] [address] Dr. Maxwell Allen IG # 0.03 10e3/ul Normal 0.00-0.03 [facility] Comment on above: Performed By: #### T 3TOTAL #### [facility] [address] [address] [address] Maxwell Allen IG % 0.3 % Normal 0.0-0.5 [facility] Comment on above: Performed By: #### T 3TOTAL #### [facility] [address] [address] [address] Maxwell Allen LYMPH # 1.5 103/ul Normal 1.2-3.8 [facility] Comment on above: Performed By: #### T 3TOTAL #### [facility] [address] [place] [address] Dr. Maxwell Allen Lymphocytes/100 WBC (Bld) 13.0 % Critically low 20.5-60.0 [facility] Comment on above: Performed By: #### T 3TOTAL #### [facility] [address] [place] [address] Dr. Maxwell Allen MANUAL DIFF REQ NO Normal [facility] Comment on above: Performed By: #### T 3TOTAL #### [facility] [address] [place] [address] Dr. Maxwell Allen MCH (RBC) [Entitic mass] 25.2 pg Critically low 26.7-34.0 [facility] Comment on above: Performed By: #### T 3TOTAL #### [facility] [address] [place] [address] Dr. Maxwell Allen MCHC (RBC) [Mass/Vol] 31.0 g/dL Normal 29.9-35.2 [facility] Comment on above: Performed By: #### T 3TOTAL #### [facility] [address] [place] [address] Dr. Maxwell Allen MCV (RBC) [Entitic vol] 81.2 fL Normal 81.0-99.0 [facility] Comment on above: Performed By: #### T 3TOTAL #### [facility] [address] [place] [address] Dr. Maxwell Allen MONO # 1.0 103/ul Critically high 0.3-0.8 [facility] Comment on above: Performed By: #### T 3TOTAL #### [facility] [address] [address] [address] Maxwell Allen Monocytes/100 WBC (Bld) 8.7 % Normal 1.7-12.0 [facility] Comment on above: Performed By: #### T 3TOTAL #### [facility] [address] [address] [address] Maxwell Allen NEUT # 8.5 103/ul Critically high 1.4-6.5 [facility] Comment on above: Performed By: #### T 3TOTAL #### [facility] [address] [place] [address] Dr. Maxwell Allen Neutrophils/100 WBC (Bld) 76.2 % Critically high 43.0-75.0 [facility] Comment on above: Performed By: #### T 3TOTAL #### [facility] [address] [place] [address] Dr. Maxwell Allen Platelet mean volume (Bld) [Entitic vol] 9.6 fL Normal 9.5-13.5 [facility] Comment on above: Performed By: #### T 3TOTAL #### [facility] [address] [place] [address] Dr. Maxwell Allen PLT 267 103/ul Normal 150-450 [facility] Comment on above: Performed By: #### T 3TOTAL #### [facility] [address] [place] [address] Dr. Maxwell Allen RBC 4.69 106/ul Normal 4.20-5.40 [facility] Comment on above: Performed By: #### T 3TOTAL #### [facility] [address] [place] [address] Dr. Maxwell Allen WBC 11.2 103/ul Critically high 4.0-11.0 [facility] Comment on above: Performed By: #### T 3TOTAL #### [facility] [address] [place] [address] Dr. Maxwell Allen CULTURE BLOODon 04-08-2021 Microscopic examination of blood, culture Culture Observations: NO GROWTH AT 5 DAYS. Normal [facility] Comment on above: Performed By: #### B LDCX1 #### [facility] [address] [address] [address] Maxwell Allen PROF 14(COMP METB)on 021 Albumin [Mass/Vol] 3.5 g/dL Normal 3.5-5.0 [facility] Comment on above: Performed By: #### T 3TOTAL #### [facility] [address] [address] [address] Maxwell Allen Albumin/Globulin [Mass ratio] 0.9 {ratio} Normal [facility] Comment on above: Performed By: #### T 3TOTAL #### [facility] [address] [place] [address] Dr. Maxwell Allen ALP [Catalytic activity/Vol] 59 U/L Normal 38-126 [facility] Comment on above: Performed By: #### T 3TOTAL #### [facility] [address] [place] [address] Dr. Maxwell Allen ALT [Catalytic activity/Vol] 31 U/L Normal 9-52 [facility] Comment on above: Performed By: #### T 3TOTAL #### [facility] [address] [place] [address] Dr. Mxawell Allen Anion gap [Moles/Vol] 10.6 mmol/L Normal [facility] Comment on above: Performed By: #### T 3TOTAL #### [facility] [address] [address] [address] Maxwell Allen AST [Catalytic activity/Vol] 14 U/L Normal 14-36 [facility] Comment on above: Performed By: #### T 3TOTAL #### [facility] [address] [place] [address] Dr. Maxwell Allen Bilirubin [Mass/Vol] 0.5 mg/dL Normal 0.2-1.3 [facility] Comment on above: Performed By: #### T 3TOTAL #### [facility] [address] [place] [address] Dr. Maxwell Allen Calcium [Mass/Vol] 8.9 mg/dL Normal 8.4-10.2 [facility] Comment on above: Performed By: #### T 3TOTAL #### [facility] [address] [address] [address] Maxwell Allen Chloride [Moles/Vol] 103 mmol/L Normal 98-107 [facility] Comment on above: Performed By: #### T 3TOTAL #### [facility] [address] [address] [address] Maxwell Allen CO2 [Moles/Vol] 27.2 mmol/L Normal 22.0-30.0 [facility] Comment on above: Performed By: #### T 3TOTAL #### [facility] [address] [address] [address] Maxwell Allen Creatinine [Mass/Vol] 0.72 mg/dL Normal 0.52-1.04 [facility] Comment on above: Performed By: #### T 3TOTAL #### [facility] [address] [place] [address] Dr. Maxwell Allen EGFR-AF HONG KONGER >60 Normal >=60 [facility] Comment on above: Performed By: #### T 3TOTAL #### [facility] [address] [place] [address] Dr. Maxwell Allen EGFR-NON AF HONG KONGER >60 Normal >=60 [facility] Comment on above: Performed By: #### T 3TOTAL #### [facility] [address] [address] [address] Maxwell Allen Globulin (S) [Mass/Vol] 3.9 g/dL Normal [facility] Comment on above: Performed By: #### T 3TOTAL #### [facility] [address] [address] [address] Maxwell Allen Glucose [Mass/Vol] 122 mg/dL Critically high 74-106 [facility] Comment on above: Performed By: #### T 3TOTAL #### [facility] [address] [place] [address] Dr. Maxwell Allen Potassium [Moles/Vol] 3.8 mmol/L Normal 3.4-5.0 [facility] Comment on above: Performed By: #### T 3TOTAL #### [facility] [address] [place], [place] [address] Dr. Maxwell Allen Protein [Mass/Vol] 7.4 g/dL Normal 6.1-8.2 [facility] Comment on above: Performed By: #### T 3TOTAL #### [facility] [address] [place], [place] [address] Dr. Maxwell Allen Sodium [Moles/Vol] 137 mmol/L Normal 137-145 [facility] Comment on above: Performed By: #### T 3TOTAL #### [facility] [address] [address] [address] Maxwell Allen Urea nitrogen [Mass/Vol] 10.0 mg/dL Normal 7.0-17.0 [facility] Comment on above: Performed By: #### T 3TOTAL #### [facility] [address] [address] [address] Maxwell Allen Urea nitrogen/Creatinine [Mass ratio] 13.9 mg/mg Normal [facility] Comment on above: Performed By: #### T 3TOTAL #### [facility] [address] [address] [address] Maxwell Allen TSHon 07-31-2017 Thyrotropin Qn 2.88 m[IU]/L Normal 0.44 - 3.98 [facility] Comment on above: Result Comment: TSH testing is performed using different testing methodology at [facility] than at other [facility]. Direct result comparisons should only be made within the same method. . Patients receiving more than 5 mg/day of biotin may have interference in test results. A sample should be taken no sooner than eight hours after previous dose. Contact [phone] for additional information. Performed By: #### T SH2 #### [facility] [address] [place] [address] Vital Signs Date Time Vital Sign Value Performing Clinician Facility 08-10-2024 14:06-0400 Body mass index (BMI) [Ratio] 37.27 kg/m2 [employer] Work Phone: [facility] 08-10-2024 14:06-0400 Body weight 95.44 kg Quinn Ajith DO Work Phone: [facility] 08-10-2024 14:06-0400 Diastolic blood pressure 76 mm[Hg] Quinn Ajith DO Work Phone: [facility] 08-10-2024 14:06-0400 Systolic blood pressure 120 mm[Hg] Quinn Ajith DO Work Phone: [facility] 02-02-2024 15:00-0400 Body mass index (BMI) [Ratio] 37.02 kg/m2 Quinn Ajith DO Work Phone: [facility] 02-02-2024 15:00-0400 Body weight 94.8 kg Quinn Ajith DO Work Phone: [facility] 02-02-2024 15:00-0400 Diastolic blood pressure 78 mm[Hg] Quinn Ajith DO Work Phone: [facility] 02-02-2024 15:00-0400 Systolic blood pressure 124 mm[Hg] Quinn Ajith DO Work Phone: [facility] 01-13-2024 09:58-0400 Body mass index (BMI) [Ratio] 36.56 kg/m2 Quinn Ajith DO Work Phone: [facility] 01-13-2024 09:58-0400 Body weight 93.62 kg Quinn Ajith DO Work Phone: [facility] 01-13-2024 09:58-0400 Diastolic blood pressure 80 mm[Hg] Quinn Ajith DO Work Phone: [facility] 01-13-2024 09:58-0400 Systolic blood pressure 130 mm[Hg] Quinn Ajith DO Work Phone: [facility] 01-08-2023 10:00-0400 Body height 157.48 cm Mirian Ponce Other [employer] Other 01-08-2023 10:00-0400 Body mass index (BMI) [Ratio] 36.03 kg/m2 Mirian Ponce Other [facility] Other 01-08-2023 10:00-0400 Body weight 89.36 kg Mirian Kris Other [employer] Other 01-08-2023 10:00-0400 Diastolic blood pressure 72 mm[Hg] Mirian Kris Other [facility] Other 01-08-2023 10:00-0400 Systolic blood pressure 128 mm[Hg] Mirian Kris Other [employer] Other Encounters Encounter Date Encounter Type Care Provider Facility Start: 02-15-2025 End: 02-15-2025 Bamboo flowsheet Quinn Ajith DO Work Phone: [facility] Start: 02-15-2025 End: 02-15-2025 Bamboo flowsheet Quinn Ajith DO Work Phone: [facility] Start: 02-15-2025 End: 02-15-2025 Patient encounter procedure Quinn Ajith DO Work Phone: [facility] Start: 02-15-2025 End: 02-15-2025 Periodic preventive med est patient 40-64yrs Quinn Ajith DO Work Phone: [facility] Comment on above: Well woman exam with routine gynecological exam; Encounter for screening mammogram for malignant neoplasm of breast; Thyroid disorder Start: 08-26-2024 End: 08-26-2024 Clinisync Result Encounter Quinn Ajith DO Work Phone: [facility] Unsolicited Start: 08-26-2024 End: 08-26-2024 Clinisync Result Encounter Quinn Ajith DO Work Phone: [facility] Start: 08-10-2024 End: 08-10-2024 Office outpatient visit 10 minutes Quinn Ajith DO Work Phone: [facility] Comment on above: ASCUS with positive high risk HPV cervical; Breast cancer screening by mammogram Start: 08-10-2024 End: 08-10-2024 ambulatory QUINN AJITH Not Available Start: 03-13-2024 End: 03-13-2024 Clinisync Result Encounter Quinn Ajith DO Work Phone: [facility] Start: 03-13-2024 End: 03-13-2024 Clinisync Result Encounter Quinn Ajith DO Work Phone: [facility] Start: 02-03-2024 End: 02-03-2024 ambulatory Quinn Ajith [facility] Work Phone: Start: 02-03-2024 End: 02-03-2024 Departed Referred DO Quinn Ajith Work Phone: [facility] Start: 02-02-2024 End: 02-02-2024 Patient encounter procedure Quinn Ajith DO Work Phone: [facility] Comment on above: ASCUS with positive high risk HPV cervical Start: 02-02-2024 End: 02-02-2024 ambulatory QUINN AJITH Not Available Start: 01-27-2024 Non-patient / Non-visit DO Cor ey Ajith [facility] Work Phone: Start: 01-27-2024 End: 01-28-2024 Clinisync Result Encounter Quinn Ajith DO Work Phone: [facility]olic[facility] Start: 01-27-2024 End: 01-28-2024 Clinisync Result Encounter Quinn Ajith DO Work Phone: [facility] Start: 01-13-2024 End: 01-13-2024 Bamboo flowsheet Quinn Ajith DO Work Phone: [facility] Start: 01-13-2024 End: 01-20-2024 Bamboo flowsheet Quinn Dietricho DO Work Phone: [facility] Start: 01-13-2024 End: 01-20-2024 Clinisync Result Encounter Quinn Ryderzio DO Work Phone: [facility] Start: 01-13-2024 End: 01-14-2024 External Result Encounter Quinn Dietricho DO Work Phone: [facility] Start: 01-13-2024 End: 01-13-2024 Patient encounter procedure Quinn Ajith DO Work Phone: [facility] Work Phone: Start: 01-13-2024 End: 01-13-2024 Patient encounter status Quinn Dietricho DO Work Phone: [facility] Start: 01-13-2024 End: 01-13-2024 Periodic preventive med est patient 18-39 yrs Quinn Dietricho DO Work Phone: [facility] Comment on above: Well woman exam with routine gynecological exam; Breast cancer screening by mammogram; Abnormal TSH; STD exposure; Sexually transmitted disease exposure; Wellness examination; control counseling Start: 01-13-2024 Non-patient / Non-visit DO Braulio Canseco Work Phone: [facility] Work Phone: Start: 01-13-2024 End: 01-13-2024 ambulatory QUINN RYDERZIO Not Available Start: 01-30-2023 End: 01-30-2023 ambulatory Mirian Ponce Other [facility] [employer] Other Start: 01-30-2023 Telephone encounter Mirian Ponce [facility] Start: 01-08-2023 Encounter for genera l adult medical examination without abnormal findings Mirian Ponce [facility] Start: 01-08-2023 Encounter for gynecological examination (general) (routine) without abnormal findings Mirian Ponce [facility] Start: 01-08-2023 Periodic preventive med est patient 18-39 yrs Mirian Ponce [facility] Start: 01-08-2023 End: 01-08-2023 ambulatory Mirian Ponce Other [employer] Other Start: 01-08-2023 End: 01-08-2023 Departed Referred MD Mirian Ponce Work Phone: [facility] [place] Work Phone: Start: 01-07-2023 ambulatory Marielos L Silvia Facility: [facility] Start: 12-10-2022 ambulatory Marielos Vega Facility:[facility] Start: 03-18-2022 End: 03-19-[address] NISHA MARIEE Facility:[facility] Start: 02-08-2022 End: 02-09-[address] NISHA MARIEE Facility:[facility] Start: 01-29-2022 End: 01-29-[address] NISHA MARIEE Facility:[facility] Start: 01-29-2022 Gynecological examin ation normal Mirian Ponce Other [employer] Other Start: 04-08-2021 End: 04-08-[address] MIRIAN PONCE Facility:[facility] Start: 01-22-2021 Adult health examination Johanny Ponce Other [employer] Other Start: 08-14-2017 Patient encounter procedure Salome Laughlin Facility:[facility] Travis Machado Start: 07-31-2017 Patient encounter procedure Salome Laughlin Facility:[facility] Travis Machado Start: 06-20-2017 Ambulatory Salome Laughlin Facil ity:[facility] Procedures Date Procedure Procedure Detail Performing Clinician Start: 08-26-2024 MM TOMOSYNTHESIS SCR EENING BI Quinn Ajith DO Work Phone: Start: 03-13-2024 ALL THYROID STIM HORMONE Quinn Ajith DO Work Phone: Start: 02-02-2024 COLPOSCOPY Quinn Fazi o DO Work Phone: Start: 02-02-2024 Urine test visual color cmprsn meths [employer] Work Phone: Start: 01-27-2024 HIV AB/P24 AG WITH REFLEX [employer] Work Phone: Start: 01-13-2024 IGP,APTIMA HPV,AGE GDLN [employer] Work Phone: Start: 01-13-2024 URETHRITIS/DISCHARGE PLUS VAGINITIS (HTRX) [employer] Work Phone: Start: 02-08-2008 Contraception care education Mirian Ponce Other End: 04-22-2018 screening Mirian Ponce Other Counseling Mirian Ponce Other End: 08-07-2020 Depression screening Mirian Ponce Other Family planning education Ma gianfranco Ponce Other End: 05-06-2018 visit Mirian Ponce Other Plan of Treatment Date Care Activity Detail Author Start: 02-15-2025 End: 04-17-2026 MG Breast - bilateral Screening Bilateral screening mammogram Imaging Routine Well woman exam with routine gynecological exam Encounter for screening mammogram for malignant neoplasm of breast Expected: 02/15/2025 (Approximate), Expires: 04/17/2026 [facility] Work Phone: Comment on above: Expected: 02/15/2025 (Approximate), Expires: 04/17/2026 Start: 02-15-2025 End: 02-15-2025 Patient encounter procedure [facility] Comment on above: Arrived Start: 08-10-2024 End: 10-10-2025 MG Breast - bilateral Screening Bilateral screening mammogram Imaging Routine Breast cancer screening by mammogram Expected: 08/10/2024 (Approximate), Expires: 10/10/2025 [facility] Work Phone: Comment on above: Expected: 08/10/2024 (Approximate), Expires: 10/10/2025 Start: 08-10-2024 End: 08-10-2024 Patient encounter procedure 08/10/2024 2:00 PM EDT Procedure Visit [facility] [address] [place] [id number] Quinn Canseco, DO [address] [place] [address] [facility] Start: 02-02-2024 End: 02-02-2024 Patient encounter procedure 02/02/2024 2:30 PM EDT Procedure Visit [facility] [address] [place] [id number] Qunin Canseco, DO [address] [place] [address] [facility] Start: 02-02-2024 End: 02-01-2025 Colposcopy Colposcopy Procedures Routine ASCUS with positive high risk HPV cervical Expected: 02/02/2024 (Approximate), Expires: 02/01/2025 [facility] Work Phone: Comment on above: Expected: 02/02/2024 (Approximate), Expires: 02/01/2025 Start: 01-13-2024 End: 01-12-2025 Lipid 1996 panel - Serum or Plasma Lipid panel Lab Routine Wellness examination Expected: 01/13/2024 (Approximate), Expires: 01/12/2025 [facility] Comment on above: Expected: 01/13/2024 (Approximate), Expires: 01/12/2025 Start: 01-13-2024 End: 03-14-2025 MG Breast - bilateral Screening Bilateral screening mammogram Imaging Routine Breast cancer screening by mammogram Expected: 01/13/2024 (Approximate), Expires: 03/14/2025 [facility] Comment on above: Expected: 01/13/2024 (Approximate), Expires: 03/14/2025 Start: 01-13-2024 End: 01-13-2024 Patient encounter procedure 01/13/2024 10:00 AM EDT Office Visit [facility] [address] [place] [id number] Quinn Canseco, DO [address] [facility] [place] [address] Arrived [facility] Comment on above: Arrived Start: 01-08-2023 [facility] CBC W Auto Different ial panel - Blood CBC and differential Lab Routine Wellness examination Ordered: 01/13/2024 [facility] Comment on above: Ordered: 01/13/2024 CHLAMYDIA TRACHOMATI S (GENITO/STI) CHLAMYDIA TRACHOMATIS (GENITO/STI) Lab Routine STD exposure Ordered: 01/13/2024 [facility] Comment on above: Ordered: 01/13/2024 Comprehensive metabo lic 2000 panel - Serum or Plasma Comprehensive metabolic panel Lab Routine Wellness examination Ordered: 01/13/2024 [facility] Comment on above: Ordered: 01/13/2024 Cytology Cervical or vaginal smear or scraping study Pap Smear Pathology and Cytology Routine Well woman exam with routine gynecological exam Ordered: 01/13/2024 [facility] Work Phone: Comment on above: Ordered: 01/13/2024 Hemoglobin A1c/Hemoglobin.total in Blood Hemoglobin A1c Lab Routine Wellness examination Ordered: 01/13/2024 [facility] Comment on above: Ordered: 01/13/2024 Hepatitis B virus surface Ag [Presence] in Serum or Plasma by Immunoassay Hepatitis B surface antigen Lab Routine Sexually transmitted disease exposure Ordered: 01/13/2024 [facility] Comment on above: Ordered: 01/13/2024 HIV-1/HIV-2 antigen/antibody combination immunoassay HIV-1 and HIV-2 antibodies Lab Routine Sexually transmitted disease exposure Ordered: 01/13/2024 [facility] Comment on above: Ordered: 01/13/2024 Human papilloma viru s 16+18+31+33+35+39+45+51+ 52+56+58+59+66+68 DNA [Presence] in Cervix by Probe with signal amplification [facility] Human papilloma viru s DNA [Presence] in Unspecified specimen by Probe with amplification HPV DNA probe, amplified Microbiology Routine Well woman exam with routine gynecological exam Ordered: 01/13/2024 [facility] Comment on above: Ordered: 01/13/2024 Neisseria gonorrhoea e DNA [Presence] in Unspecified specimen by ELOISE with probe detection Neisseria gonorrhea DNA probe, direct Lab Routine STD exposure Ordered: 01/13/2024 [facility] Comment on above: Ordered: 01/13/2024 Reagin Ab [Presence] in Serum by RPR RPR Lab Routine Sexually transmitted disease exposure Ordered: 01/13/2024 [facility] Comment on above: Ordered: 01/13/2024 SURESWAB(R) ADVANCED VAGINITIS PLUS, TMA SURESWAB(R) ADVANCED VAGINITIS PLUS, TMA Pathology and Cytology Routine STD exposure Ordered: 01/13/2024 [facility] Comment on above: Ordered: 01/13/2024 THIN PREP TIS PAP AN D HR HPV DNA THIN PREP TIS PAP AND HR HPV DNA Pathology and Cytology Routine ASCUS with positive high risk HPV cervical Ordered: 08/10/2024 [facility] Comment on above: Ordered: 08/10/2024 THIN PREP TIS PAP AN D HR HPV DNA THIN PREP TIS PAP AND HR HPV DNA Pathology and Cytology Routine Well woman exam with routine gynecological exam Ordered: 02/15/2025 [facility] Comment on above: Ordered: 02/15/2025 Thyrotropin [Units/volume] in Serum or Plasma TSH Lab Routine Abnormal TSH Ordered: 01/13/2024 [facility] Comment on above: Ordered: 01/13/2024 Thyrotropin [Units/volume] in Serum or Plasma TSH Lab Routine Thyroid disorder Ordered: 02/15/2025 [facility] Comment on above: Ordered: 02/15/2025 Thyroxine (T4) free [Mass/volume] in Serum or Plasma T4, free Lab Routine Thyroid disorder Ordered: 02/15/2025 [facility] Comment on above: Ordered: 02/15/2025 Payers Date Payer Category Payer Self-pay 2022 [facility] [id number] 2022 Unknown BCBS BCBS xxxxxx [id number] 2022-Present [phone] [address] [place] [address] [id number] 2022 Unknown [id number] 2019 Unknown [id number] 1984 Unknown [id number] 356 1984 Unknown [id number]. 356 1984 Unknown [id number] [id number]. 593 1984 Unknown [id number] [id number]. 593 1984 Unknown [id number] [id number]. 593 1984 Unknown [id number] [id number]. 593 1984 Unknown [id number] [id number]. 727 1984 Unknown [id number] [id number]. 1259 1984 Unknown [id number] [id number]. 1259 1984 Unknown [id number] [id number]. 1259 Unknown [id number] Unknown [id number] 531 Social History Date Type Detail Facility Sex Assigned At [facility] [employer] Other Start: 1985 Sex Assigned At Female F [facility] Tobacco smoking status [facility] Tobacco smoking consumption unknown [facility] Start: 1985 Sex assigned at Not on file N [facility] Clinical Notes 01-08-2023 to 02-15-2025 Jordana Glover, GEODETIC SURVEYOR TECHNOLOGIST - 02/15/2025 1:10 PM EDHomero Glover, GEODETIC SURVEYOR TECHNOLOGIST - 08/10/2024 2:00 PM EDLaura Colin, GEODETIC SURVEYOR TECHNOLOGIST - 02/02/2024 2:30 PM EDHomero Glover, GEODETIC SURVEYOR TECHNOLOGIST - 01/13/2024 10:00 AM EDT Note Date & Type Note Facility 02-15-2025 History of Presen t illness Narrative Reason for Appointment: Patient ID: Viral Merino is a 39 y.o. female who presents [...] nursing note reviewed. Exam conducted with a private banker present. Vitals: Estimated body mass index is 37.27 kg/m as calculated from the following: Height [...] them. Patient can also view results via [employer]. I reinforced importance of condom use for [...] Quinn Canseco DO documented in this encounter [facility] 08-10-2024 History of Presen t illness Narrative Reason for Appointment: Patient ID: Viral Merino is a 39 y.o. female who presents for Abnormal Pap Smear Patient presents today for Repeat Pap. MEDICATIONS Current Outpatient Medications Medication Instructions Loratadine (Claritin) 10 MG capsule 1 capsule, Every 24 hours norgestimate-ethinyl estradiol (Susanna) 0.25-35 [...] nursing note reviewed. Exam conducted with a private banker present. Vitals: Estimated body mass index is 37.27 kg/m as calculated from the following: Height as of 09/17/22: 5' 3 . Weight as of this encounter: 210 lb 6.4 oz. BP: 120/76 Patient's last menstrual period was 07/21/2024. ASSESSMENT & PLAN ICD-10-CM 1. ASCUS with positive high risk HPV cervical R87.610 THIN PREP TIS PAP AND HR HPV DNA R87.810 2. Breast cancer screening by mammogram Z12.31 Bilateral screening mammogram Bilateral screening mammogram Repeat Pap: Patient presents today for a repeat pap. Previous pap results were reviewed and noted to be ASCUS and + HPV. Question regarding previous results were discussed. Repeat Pap was obtained without difficulty. Follow Up: Patient is to return to the office in 6 months for an annual exam. Documented by Jordana Glover LPN on behalf of: Quinn Canseco DO documented in this encounter [facility] 02-02-2024 History of Presen t illness Narrative Associated Order(s): Colposcopy Post-Procedure Diagnose(s): ASCUS with positive high risk HPV cervical Reason for Appointment: Patient ID: Viral Merino is a 38 y.o. female who presents [...] nursing note reviewed. Exam conducted with a private banker present. Vitals: Estimated body mass index is [...] Quinn Canseco DO documented in this encounter [facility] 01-13-2024 History of Presen t illness Narrative Reason for Appointment: Patient ID: Viral Merino is a 38 y.o. female who presents [...] nursing note reviewed. Exam conducted with a private banker present. Vitals: Estimated body mass index is [...] Quinn Canseco DO documented in this encounter [facility] 01-08-2023 Evaluation note Encounter Date Diagnosis Assessment [...] Z11.3) Dec, Wellness examination (ICD-10 - Z00.00) [employer] Other Evaluation noteNo assessment information available [facility] Work Phone: Evaluation noteNo InformationN[facility] [employer] Other Evaluation note* Diagnosis Well woman exam with routine gynecological exam Routine gynecological examination Breast cancer screening by mammogram Abnormal TSH STD exposure Sexually transmitted disease exposure Contact with or exposure to venereal diseases Wellness examination control counseling [facility] Diagnosis ASCUS with positive high risk HPV cervical [facility] Diagnosis ASCUS with positive high risk HPV cervical Breast cancer screening by mammogram [facility] Diagnosis Well woman exam with routine gynecological exam Routine gynecological examination Encounter for screening mammogram for malignant neoplasm of breast Thyroid disorder Unspecified disorder of thyroid documented in this encounter [facility] Narrative - Reported* Type Description Date Medical History Adult hypothyroidism Medical History HPV in female Medical History Bronchitis Medical History Asthma, intermittent with acute exacerbation Medical History Acute URI Surgical History Hospitalization History SEE SURGICAL HX [facility] iRewardChart Other Summary Purpose Family History Relationship Condition Age at Onset Recorded Date/T stacy father Diabetes mellitus Unknown Seizure disorder Unknown mother Hypertension Unknown Advance Directives Advance Directive Response Recorded Date/ Time Advance Directives No January 14, 2023 8:48am Additional Source Comments INFORMATION SOURCE (unrecogn ized section and content) DATE CREATED AUTHOR 11/17/2017 [facility] DATE CREATED AUTHOR AUTHOR'S ORGANIZ ATION 07/06/2018 [facility] DATE CREATED AUTHOR AUTHOR'S ORGANIZ ATION 03/24/2022 [facility] DATE CREATED AUTHOR AUTHOR'S ORGANIZ ATION 12/11/2022 [facility] DATE CREATED AUTHOR AUTHOR'S ORGANIZ ATION 02/12/2024 [facility] DATE CREATED AUTHOR AUTHOR'S ORGANIZ ATION 08/12/2024 [facility] EPIC REASON FOR VISIT (unrecogniz ed section and content) Reason Comments Well Women Visit Reason Comments Abnormal Pap Smear Pt present today for a colposcopy visit. Pt had an abnormal pap smear on 01/13/2024. (ASCUS HPV+) Reason Comments Abnormal Pap Smear Reason Comments Gynecologic Exam Care Teams (unrecognized sec tion and content) [...] BE BASED ON THE PRIMARY CLINICAL RECORDS. [facility] [employer] provides no warranty or guarantee of the accuracy or completeness of information in this document.
--- OUTSIDE RECORDS SUMMARY | 2025-02-15 19:35 | XMS_ITS | Encounter Summary ---
Author Organization [facility] Address [address] [place] [address] Phone Care Team Providers Care Marketing Automation Specialist Name Role Phone Mirian Guido MD Primary Care Provider Encounter Details Date Type Department Care Team (Late st Contact Info) Description 07/24/2017 Orders Only [facility] [address] [place] [address] Conversion, Onbase Social History Tobacco Use Types Packs/Day Years Used Date Smoking Tobacco: Never Assessed Comments Unknown Sex and Gender Information Value Date Recorded Sex Assigned at Not on file Legal Sex Female 10:57 AM EST Gender Identity Not on file Sexual Orientation Not on file documented as of this encounter Plan of Treatment Scheduled Orders Name Type Priority Associated Diagnoses Orde r Schedule OUTSIDE LAB SCAN Lab Ordered: 07/24/2017 documented as of this encounter Visit Diagnoses Not on filedocumented in this encounter Care Teams Marketing Automation Specialist Relationship Specialty Start Date End Date Mirian Guido MD [address] [place] [address] PCP - General 06/02/17 documented as of this encounter
--- OUTSIDE RECORDS SUMMARY | 2025-02-15 19:36 | XMS_ITS | Encounter Summary ---
Author Organization [facility] Address [address] [place] [address] Care Team Providers Care Pattern Layout Worker Name Role Phone Unavailable Primary Care Provider Unavailabl e Encounter Details Date Type Department Care Team (Late st Contact Info) Description 02/02/2024 Abstract [facility] [address] [place] [place] [address] Los Canseco DO [address] [place] [address] Social History Tobacco Use Types Packs/Day Years Used Date Smoking Tobacco: Never Assessed Comments Unknown Sex and Gender Information Value Date Recorded Sex Assigned at Not on file Legal Sex Female 7:29 PM EDT Gender Identity Not on file Sexual Orientation Not on file documented as of this encounter Plan of Treatment Not on file documented as of this encounter Visit Diagnoses Not on filedocumented in this encounter
--- OUTSIDE RECORDS SUMMARY | 2025-02-15 19:36 | XMS_ITS | Encounter Summary ---
Author Organization [facility] Address [address] [facility] [place] [address] Care Team Providers Care Medical Investigator Name Role Phone Unavailable Primary Care Provider Unavailabl e Encounter Details Date Type Department Care Team (Late st Contact Info) Description 01/27/2024 Orders Only [facility] [address] [place] [address] Seema Bran LPN [address] [place] [id number] Social History Tobacco Use Types Packs/Day Years Used Date Smoking Tobacco: Never Assessed Comments Unknown Sex and Gender Information Value Date Recorded Sex Assigned at Not on file Legal Sex Female 7:29 PM EDT Gender Identity Not on file Sexual Orientation Not on file documented as of this encounter Plan of Treatment Not on file documented as of this encounter Procedures Procedure Name Priority Date/Time Associated Diagnosis Comments PAP SMEAR Routine 01/13/2024 12:00 AM EDT documented in this encounter Results * Pap Smear (01/13/2024 12:00 AM EDT) Swab Cervical swab / Unknown us Ajith Nurse [facility] LAB CYTOLOGY ORDERABLES Final Result EXTERNAL LAB documented in this encounter Visit Diagnoses Not on filedocumented in this encounter
--- OUTSIDE RECORDS SUMMARY | 2025-02-15 19:36 | XMS_ITS | Encounter Summary ---
Author Organization [facility] Address [address] [facility] [place] [address] Care Team Providers Care Range Conservationist Name Role Phone Unavailable Primary Care Provider Unavailabl e Encounter Details Date Type Department Care Team (Late st Contact Info) Description 08/26/2024 Orders Only [facility] [address] [place] [place] [address] Alisa Cheek LPN [address] [place] [id number] Social History Tobacco Use Types Packs/Day Years [...] Date/Time Associated Diagnosis Comments PAP SMEAR Routine 08/10/2024 12:00 AM EDT documented in this encounter Results * Pap Smear (08/10/2024 12:00 AM EDT) Swab Cervical swab / Unknown us Los Ajith DO LAB CYTOLOGY ORDERABLES Final Re sult EXTERNAL LAB documented in this encounter Visit Diagnoses Not on filedocumented in this encounter
--- OUTSIDE RECORDS SUMMARY | 2025-02-15 19:36 | XMS_ITS | Clinical Summary ---
Author Organization [facility] Address [address] [facility] [place] [address] Care Team Providers Care Concrete Tester Name Role Phone Unavailable Primary Care Provider Unavailabl e Allergies No known active allergies Medications Loratadine (Claritin) 10 MG capsule Take 1 capsule by mouth 1 (one) time each day at the same time Active Susanna 0.25-35 MG-MCG tabletIndicati ons: control counseling TAKE 1 TABLET BY MOUTH EVERY DAY 84 tablet 3 5 Active norgestimate-e thinyl estradiol (Susanna) 0.25-35 MG-MCG tabletIndicati ons: control counseling Take 1 tablet by mouth Daily 28 tablet 12 4 01/18/20 25 Discontinued Active Problems Problem Noted Date Diagnosed Date ASCUS with positive high risk HPV cervical 02/01 Encounters Date Type Department Care Team Description 02/15/2025 1:10 PM EDT Office Visit KAREN GARRETT [facility] [place] [address] Los Canseco DO Well woman exam with routine gynecological exam; Encounter for screening mammogram for malignant neoplasm of breast; Thyroid disorder 02/15/2025 Bamboo flowsheet NOMJama[facility] GARRETT [address] [place] [address] Los Canseco DO 01/15/2025 Refill [facility] GARRETT [address] [place] [address] Los Canseco DO control counseling from Last 3 Months Social History Tobacco Use Types Packs/Day Years Used Date Smoking Tobacco: Never Assessed Comments Unknown Sex and Gender Information Value Date Recorded Sex Assigned at Not on file Legal Sex Female 7:29 PM EDT Gender Identity Not on file Sexual Orientation Not on file Last Filed Vital Signs Vital Sign Reading Time Taken Comments Blood Pressure 120/76 08/10/2024 2:06 PM EDT Pulse - - Temperature - - Respiratory Rate - - Oxygen Saturation - - Inhaled Oxygen Concentration - - Weight 95.4 kg (210 lb 6.4 oz) 08/10/2024 2:06 P M EDT Height 160 cm (5' 3 ) 09/17/2022 12:00 PM EDT Body Mass Index 37.27 09/17/2022 12:00 PM EDT Plan of Treatment Not on file Insurance [facility]
--- OUTSIDE RECORDS SUMMARY | 2025-02-15 19:36 | XMS_ITS | Encounter Summary ---
Author Organization [facility] Address [address] [place] [address] Care Team Providers Care Innovation Manager Name Role Phone Unavailable Primary Care Provider Unavailabl e Encounter Details Date Type Department Care Team (Late st Contact Info) Description 02/16/2024 Abstract [facility] [address] [facility] [address] Los Canseco DO [address] [facility] [place] [address] Social History Tobacco Use Types Packs/Day Years [...]
--- OUTSIDE RECORDS SUMMARY | 2025-02-15 19:36 | XMS_ITS | Encounter Summary ---
Author Organization [facility] Address [address] [place] [address] Care Team Providers Care Coal Sampler Name Role Phone Unavailable Primary Care Provider Unavailabl e Encounter Details Date Type Department Care Team (Late st Contact Info) Description 02/15/2025 Bamboo flowsheet [facility] [address] [facility] [place] [phone] Los Canseco DO [address] [facility] [address] [place], [facility] Social History Tobacco Use Types Packs/Day Years [...]
--- OUTSIDE RECORDS SUMMARY | 2025-02-15 19:36 | XMS_ITS | Clinical Summary ---
Author Organization [facility] Address [address] [place] [address] Phone Care Team Providers Care Contracts Director Name Role Phone Mirian Guido MD Primary Care Provider [phone] Social History Tobacco Use Types Packs/Day Years Used Date Smoking Tobacco: Never Assessed Comments Unknown Sex and Gender Information Value Date Recorded Sex Assigned at Not on file Legal Sex Female 10:57 AM EST Gender Identity Not on file Sexual Orientation Not on file Plan of Treatment Not on file Care Teams Contracts Director Relationship Specialty Start Date End Date Mirian Guido MD [address] [place] [address] PCP - General 06/02/17
[2025-02-22 21:08] LABS: Age Gdln ACOG Testing Note (.); HPV Genotype 18,45 Negative (Negative); IGP, Aptima HPV, rfx 16/18,45 Note (.)
== END 2025-02-15 19:32 | disposition home or self-care (01) ==
LOC: LAB 19:31
PROVIDERS: PCP Family Medicine; Visit Provider Obstetrics & Gynecology
DX: Z01.419 Encounter for gynecological examination (general) (routine) without abnormal findings (principal)
CPT/HCPCS: 87624; 88175

== ENCOUNTER 2025-03-25 07:48 | Outpatient (OUT) | payer BC, SELFPAY ==
--- OUTSIDE RECORDS SUMMARY | 2025-03-25 07:52 | XMS_ITS | Clinical Summary ---
Author Organization [facility] Address [address] [facility] [place] [address] Care Team Providers Care Spice Miller Hammer Mill Name Role Phone Unavailable Primary Care Provider Unavailabl e Allergies No known active allergies Medications MedicationSigDispense QuantityRefillsLast FilledStart DateEnd DateStatus Loratadine (Claritin) 10 MG capsule Take 1 capsule by mouth 1 (one) time each day at the same timeActive Susanna 0.25-35 MG-MCG tablet Indications: control counselingTAKE 1 TABLET BY MOUTH EVERY DAY 84 tablet 5Active Active Problems ProblemNoted DateDiagnosed DateASCUS with positive high risk HPV cervical 02/02/2024 Encounters DateTypeDepartmentCare GibkWljxdhpllsg44/09/2025Orders Only [facility] GARRETT [address] [place] [address] Seema Bran LPN 02/15/2025 1:10 PM EDTOffice Visit [facility] GARRETT [address] [place] [address] Los Canseco DO Well woman exam with routine gynecological exam; Encounter for screening mammogram for malignant neoplasm of breast; Thyroid augwziww37/23/2025Clinisync Result Encounter [facility] External Department Unsolicited Los Canseco, DO 5Bamboo flowsheet [facility] GARRETT [address] [place] [address] Los Canseco, DO 01/15/2025Refill [facility] GARRETT [address] [place] [address] Los Canseco, DO control counselingfrom Last 3 Months Social History Tobacco UseTypesPacks/DayYears UsedDateSmoking Tobacco: Never Assessed CommentsUnknownSex and Gender InformationValueDate RecordedSex Assigned at Not on fileLegal ClbCfxkzg91/15/2023 7:29 PM EDTGender IdentityNot on fileSexual OrientationNot on file Last Filed Vital Signs Vital SignReadingTime TakenCommentsBlood Jnnvzqzw546/76008/10/2024 2:06 PM EDT Pulse--Temperature--Respiratory Rate--Oxygen Saturation--Inhaled Oxygen Concentration--Vlarem07.4 kg (210 lb 6.4 oz)08/10/2024 2:06 PM FZZGzxlub374 cm (5' 3 )09/17/2022 12:00 PM EDTBody Mass Index37.27009/17/2022 12:00 PM EDT Plan of Treatment DateTypeDepartmentCare Team (Latest Contact Info)Alibmavvchn28/30/2026 2:40 PM EDTProcedure Visit [facility] [address] [place] [address] Los Canseco, [address] [facility] [address] [place], [place] [address] Procedures Procedure NamePriorityDate/TimeAssociated DiagnosisCommentsIGP,APTIMA HPV,AGE HLPCBkgabnq69/23/2025 1:15 PM EDT PAP PLZVQKuzmcqd97/23/2025 12:00 AM EDTfrom Last 3 Months Results * (ABNORMAL) IGP,APTIMA HPV,AGE GDLN (02/15/2025 1:15 PM EDT)ComponentValueRef RangeTest MethodAnalysis TimePerformed AtPathologist SignatureAGE GDLN ACOG TESTINGNote.TBHComment: ?? TESTS ? RESULT ??FLAG ??UNITS ?REF RANGE ??LAB ?? Clinician Provided Cytology Information ?? Source.............Cervix;Vulva ?? No. of containers..01 ThinPrep Vial Age Algo ACOG Mar... ??30-65 ? 01 ?FLAG LEGEND: ?L-Low Normal,H-High Normal,LL-Alert Low,HH-Alert High <-Panic Low,>-Panic High,A-Abnormal,AA-Critical Abnormal Performed at: 01 =G ?[facility] ?? [address] [place] ??[address] ?? Pam Moss MD, IGP, APTIMA HPV, RFX 16/18,45Note.TBHComment: ?? TESTS ? RESULT ??FLAG ??UNITS ?REF RANGE ??LAB DIAGNOSIS: ?02 ?? NEGATIVE FOR INTRAEPITHELIAL LESION OR MALIGNANCY. Specimen adequacy: ?02 ?? Satisfactory for evaluation. ??Endocervical and/or squamous metaplastic ?? cells (endocervical component) are present. Performed by: ? 02 ?? Cari Malik, Timber Packer . ? 02 Note: ? Note ?02 ?? The Pap smear is a screening test designed to aid in the ?? detection of premalignant and malignant conditions of the ?? uterine cervix. ??It is not a diagnostic procedure and ?? should not be used as the sole means of detecting cervical ?? cancer. ??Both false-positive and false-negative reports do ?? occur. Test Methodology: ? Note ?02 ?? This liquid based ThinPrep(R) pap test was screened with ?? the use of an image guided system. HPV Genotype Reflex ?? Note ?02 ?? Criteria met, see HPV Genotype results. ?FLAG LEGEND: ?L-Low Normal,H-High Normal,LL-Alert Low,HH-Alert High <-Panic Low,>-Panic High,A-Abnormal,AA-Critical Abnormal Performed at: 02 ?[facility] ?? [address] [place], [place] ??[phone] ?? Pam Moss MD, HPV APTIMAPositive(A)NegativeTBHComment: This nucleic acid amplification test detects fourteen high- risk HPV types (16,18,31,33,35,39,45,51,52,56,58,59,66,68) without differentiation. HPV GENOTYPE 16NegativeNegativeTBHHPV GENOTYPE 18,45NegativeNegativeTBHComment: Performed at: ??=G - [address] ??[id number] Kitchen Steward/Stewardess: Pam Moss MD, Phone: ??[phone] Performed at: ?? - [address] ??[id number] Kitchen Steward/Stewardess: Pam Moss MD, Phone: ??[phone] Specimen (Source)Anatomical Location / LateralityCollection Method / Volume Collection TimeReceived Time02/15/2025 1:15 PM EDT02/15/2025 7:34 PM EDT Narrative [facility] - 02/22/2025 9:08 PM EDT BRUSH-SPATULA CERVIX VULVA Authorizing ProviderResult TypeResult StatusCorey Ajith DOLAB BLOOD ORDERABLES Final ResultPerforming OrganizationAddressCity/State/ZIP CodePhone Number [facility] * (ABNORMAL) Pap Smear (02/15/2025 12:00 AM EDT)Specimen (Source)Anatomical Location / LateralityCollection Method / VolumeCollection TimeReceived Time SwabCervical swab / Unknown Narrative Authorizing ProviderResult TypeResult StatusFazio Nurse [facility] ObLAB CYTOLOGY ORDERABLESFinal ResultPerforming OrganizationAddressCity/State/ZIP CodePhone Number EXTERNAL LAB from Last 3 Months Insurance
--- OUTSIDE RECORDS SUMMARY | 2025-03-25 07:52 | XMS_ITS | Clinical Summary ---
Author Organization [employer] [facility] tem Address [facility] [place] [address] Care Team Providers Care Framing Specialist Name Role Phone Mirian Guido MD Primary Care Provider [phone] Social History Tobacco UseTypesPacks/DayYears UsedDateSmoking Tobacco: Never AssessedChildcare AnswerDate AawvlwhmOunsdgayfSiwvgjd15/12/2019EmploymentAnswerDate Recorded HsrmcfcjplIzyecsg37/12/2019Purpose - LifeAnswerDate RecordedPurpose and direction in nogyOsectcs82/11/2021CommentsUnknownSex and Gender InformationValueDate RecordedSex Assigned at BirthNot on fileLegal SexFemale 12/29/2014 12:09 PM EDTGender IdentityNot on fileSexual OrientationNot on file Plan of Treatment Health MaintenanceDue DateLast DoneCommentsDepression Tbpmuklwe30/16/1997Tobacco Temsplfiz00/16/1997Adult BMI Wqhvvgrks03/16/2003DTaP,Tdap and Td Vaccines (1 - Tdap)08/09/2003Pap Smear2005Influenza Vvgfvgd0701/24/2025 Medical Devices Not on file Insurance Care Teams Team MemberRelationshipSpecialtyStart DateEnd Date Mirian Guido MD [address] [place] [address] [facility]12/05/17
--- OUTSIDE RECORDS SUMMARY | 2025-03-25 07:52 | XMS_ITS | Clinical Summary ---
Author Organization [facility] Address [address] [place] [address] Phone Care Team Providers Care Mechanical Sound Technician Name Role Phone Mirian Guido MD Primary Care Provider [phone] Social History Tobacco UseTypesPacks/DayYears UsedDateSmoking Tobacco: Never Assessed CommentsUnknownSex and Gender InformationValueDate RecordedSex Assigned at Not on fileLegal TlhXgizct16/25/2022 10:57 AM ESTGender IdentityNot on file Sexual OrientationNot on file Plan of Treatment Not on file Care Teams Team MemberRelationshipSpecialtyStart DateEnd Date Mirian Guido MD [address] [place], [place] [id number] PCP - General06/02/17
--- OUTSIDE RECORDS SUMMARY | 2025-03-25 07:52 | XMS_ITS | CCD ---
Author Organization [facility] Care Team Providers Care Still Operator Gin Name Role Phone Salome Laughlin Unavailable Unavailable [...] Ponce Unavailable MD Mirian Ponce Attending Provider DO Quinn Canseco Attending Provider [phone] Quinn Canseco Attending Unavailable Quinn Canseco Admitting Unavailable Unavailable Primary Care Provider Unavailabl QUINN Pacheco Attending Unavailable QUINN CANSECO Attending Unavailable Allergies Allergy ClassificationReported Allergen(s)Allergy TypeDate of OnsetReaction(s) Facility (1 source)No Known Medication Allergies; Translations: [No Known Medication Allergies]Propensity to adverse reactions (disorder)[facility] Repository Medications Current Medications MedicationDrug Class(es)DatesSig (Normalized)Sig (Original)ethinyl estradiol 0.035 mg / norgestimate 0.25 mg oral tablet (15 sources)Progestin, EstrogenStart: 67-63-0283ehcd 1 tablet by mouth once dailyMili 0.25-35 MG-MCG tablet Indications: control counseling TAKE 1 TABLET BY MOUTH EVERY DAY 84 tablet 3 01/17/2025 ActiveStart: 01-13-2024 End: 05-31-3291wpyqclztclfz-ethinyl estradiol (Susanna) 0.25-35 MG-MCG tablet Indications: control counseling Take 1 tablet by mouth Daily 28 tablet 12 01/13/2024 01/12/2025 Activefluconazole 150 mg oral tablet (1 source)Azole Antifungaltake 1 tablet by mouth onceFluconazole 150 MG 1 tablet Orally once for 1 days Activelevothyroxine sodium 0.05 mg oral tablet (12 sources)l-ThyroxineStart: 07-30-2023 End: 96-28-1307awtd 50 ug by mouth once dailyLevothyroxine Active 50 MCG PO Daily July 30, 2023 10:32amtake 1 tablet by mouth every twenty-four hours Levothyroxine Sodium 50 MCG 1 tablet Orally Once a day for 90 days Active loratadine 10 mg oral capsule (13 sources)take 1 capsule by mouth once dailyLoratadine (Claritin) 10 MG capsule Take 1 capsule by mouth 1 (one) time each day at the same time Active Susanna (2 sources)Susanna Active Problems Active Problems Problem ClassificationProblemDateDocumented DateEpisodic/ChronicAsthma (3 sources)Unspecified asthma, uncomplicated; Translations: [Exacerbation of intermittent asthma]Onset: 02-10-8514DdmljkpRubhrwfcme during ; abruptio placenta; placenta previa (5 sources)Hemorrhage in early , unspecified; Translations: [Threatened miscarriage]Onset: 79-80-6985MoxrioinCxlgr complications of (2 sources)Supervision of high risk with poor obstetric history; Translations: [Supervision of with other poor reproductive or obstetric history, unspecified trimester]EpisodicOther female genital disorders (2 sources)History of recurrent miscarriage - not ; Translations: [Recurrent loss]EpisodicOther injuries and conditions due to external causes (2 sources)History of fall; Translations: [History of falling]EpisodicOther nutritional; endocrine; and metabolic disorders (6 sources)Obese class II; Translations: [Body mass index (BMI) 37.0-37.9, adult]Onset: 10-30-2018 Resolved: 48-32-7462QhgibnpJxzlr and delivery including normal (8 sources) test positive; Translations: [Encounter for test, result positive]Onset: 11-16-2013 Resolved: 29-26-6755JpujfeloNvmxs screening for suspected conditions (not mental disorders or infectious disease) (15 sources)Encounter for screening for malignant neoplasm of cervix; Translations: [Urine test negative]Onset: 01-29-2022 Resolved: 02-97-8322DejqmrpcUuhtn upper respiratory infections (6 sources)Acute maxillary sinusitis; Translations: [Acute maxillary sinusitis, unspecified]Onset: 08-13-2016 Resolved: 52-96-9318KwvzlcuuZbiaiaob codes; unclassified (2 sources)Complication occurring during ; Translations: [Personal history of other complications of , childbirth and the puerperium] EpisodicResidual codes; unclassified (2 sources)Gestation period, 36 weeks; Translations: [36 weeks gestation of ]EpisodicResidual codes; unclassified (2 sources)History of uterine scar from previous surgery; Translations: [History of uterine scar from previoussurgery]EpisodicSpontaneous (4 sources)Miscarriage without complication; Translations: [Complete or unspecified spontaneous without complication]EpisodicThyroid disorders (7 sources)Hypothyroidism, unspecified; Translations: [Hypothyroidism]Onset: 42-48-0268KnkgmxlKinvtvb disorders (2 sources)Disorder of thyroid gland; Translations: [Disorder of thyroid, unspecified]32-02-3237KojrqgdzBjtxksfkedca (2 sources)Encounter for fertility testing / Z31.41(ICD-10)Onset: 06-20-2017 Unclassified (1 source)Female infertility, unspecified / N97.9(ICD-10)Onset: 06-20-2017 Unclassified (1 source)Preg care for patient w recurrent preg loss, unsp trimesterOnset: 65-74-4436Chhybauzrayr (1 source)Oth disrd of amniotic fluid and membrns, first tri, unspOnset: 40-00-8800Vyetpyddfbox (2 sources)abnormal result; Translations: [Other nonspecific abnormal finding] Viral infection (4 sources)Verruca vulgaris; Translations: [Viral wart, unspecified]Onset: 03-11-2013 Resolved: 49-44-2337Xejcuxil Past or Other Problems Problem ClassificationProblemDateDocumented DateEpisodic/ChronicAllergic reactions (4 sources)Contact dermatitis; Translations: [Unspecified contact dermatitis due to other agents]Onset: 01-22-2017 Resolved: 43-92-8949HpzpaccbDkhlgnqtj infection; unspecified site (2 sources)Bacterial infectious disease; Translations: [Bacterial infection, unspecified, in conditions classified elsewhere and of unspecified site]Onset: 08-13-2016 Resolved: 40-27-7882CbutkatfQkjxma of cervix (12 sources)Cervicovaginal cytology: Low grade squamous intraepithelial lesion; Translations: [Low grade squamous intraepithelial lesion on cytologic smear of cervix (LGSIL)]Onset: 02-02-2024 Resolved: 854195-04-0236JnxgpbiwAamzfauoehevb and procreative management (4 sources)Surveillance of oral contraception done; Translations: [Encounter for surveillance of contraceptivepills]99-65-4999BbpublcqBjipwtdy mellitus without complication (2 sources)Abnormal glucose level; Translations: [Other abnormal glucose] Resolved: 76-13-9497LorxdugpTkboaxhk of mouth; excluding dental (4 sources)Diseases of lips; Translations: [DISEASES OF LIPS]Onset: 04-08-2021 EpisodicFemale infertility (2 sources)Female infertility; Translations: [Female infertility, unspecified] Resolved: 87-57-6983EcnslgoXkttmcymsvgfj and screening for infectious disease (8 sources)Encounter for screening for human papillomavirus (HPV); Translations: [Sexually transmitted infectious disease]Onset: 01-31-2022 Resolved: 77-77-8645EzwxienoAwudjnqtp disorders (2 sources)Irregular periods; Translations: [Irregular menstrual cycle]Onset: 08-28-2006 Resolved: 54-44-3105DigdaorTgevf aftercare (1 source)Other fci (current) drug therapy; Translations: [OTH ASSISTED CURRENT DRUG THERAPY]Onset: 97-48-5673KkerlxsjHyyfz complications of (2 sources)Anemia of ; Translations: [Anemia complicating , second trimester] Resolved: 61-79-0304KsdqhgpJivou complications of (2 sources)Diseases of the respiratory system complicating , third trimester; Translations: [Diseasesof the respiratory system complicating , third trimester] Resolved: 60-30-1057SnvtofpaLnjxe complications of (2 sources)Spotting per vagina in ; Translations: [Spotting complicating , unspecified trimester] Resolved: 62-95-7330JrlhvvchNujug complications of (2 sources)Maternal care for excessive growth, unspecified trimester, not applicable or unspecified; Translations: [Maternal care for excessive growth, unspecified trimester, not applicable or unspecified] Resolved: 02-02-3440KapjoienCfaxa complications of (4 sources)High risk ; Translations: [Supervision of high risk , unspecified, second trimester] Resolved: 76-73-7996YordpjreMmgck complications of (2 sources) care for patient with recurrent loss, third trimester; Translations: [Pregnancycare for patient with recurrent loss, third trimester] Resolved: 35-33-2509QwrlmknkJqjer nutritional; endocrine; and metabolic disorders (2 sources)Morbid obesity; Translations: [Morbid (severe) obesity due to excess calories] Resolved: 01-42-1189LowytwqQpakm nutritional; endocrine; and metabolic disorders (2 sources)Obesity; Translations: [Obesity, unspecified] Resolved: 51-33-5719SdpjlbyShloo upper respiratory disease (2 sources)Allergic rhinitis; Translations: [Allergic rhinitis, unspecified] Resolved: 31-33-0118RmgaomeUpcumavxeofdzd and other problems of amniotic cavity (2 sources)Other specified disorders of amniotic fluid and membranes, first trimester, not applicable or unspecified; Translations: [Other specified disorders of amniotic fluid and membranes, first trimester, not applicable or unspecified] Resolved: 04-54-0881YxryirzsZwzulgjc codes; unclassified (2 sources)Gestation period, 34 weeks; Translations: [34 weeks gestation of ] Resolved: 21-03-9809QxldckbeEwctbtte codes; unclassified (2 sources)Gestation period, 37 weeks; Translations: [37 weeks gestation of ] Resolved: 03-62-9947VaipmscdXrvfglgp codes; unclassified (2 sources)Gestation period, 15 weeks; Translations: [15 weeks gestation of ] Resolved: 37-35-1392MucqniwqEaloiqeq codes; unclassified (2 sources)Gestation period, 30 weeks; Translations: [30 weeks gestation of ] Resolved: 30-73-9039VeccltrqBjhpdotx codes; unclassified (2 sources)Gestation period, 38 weeks; Translations: [38 weeks gestation of ] Resolved: 45-81-9295XzhwwsumEwuh and subcutaneous tissue infections (4 sources)Abscess of axilla; Translations: [Cutaneous abscess of left axilla] Resolved: 00-20-4193PoocyhlcGgixddbljab; intervertebral disc disorders; other back problems (2 sources)Low back pain; Translations: [Lumbago]Onset: 08-03-2015 Resolved: 08-66-5729YgaxoqogZmsdqhjutzfr (1 source)Encounter for fertility testing; Translations: [Encounter for fertility testing]Onset: 20-53-1516Loyzphvhcwbj (2 sources)Contraception care education done; Translations: [General counseling for prescription of oral contraceptives]Onset: 02-08-2008 Results Test NameValueInterpretationReference RangeFacilityIGP,APTIMA HPV,AGE GDLNon 37-11-4499JCG GDLN ACOG TESTINGNote.NOMS HealthcareComment on above:TESTS RESULT FLAG UNITS REF RANGE LAB Clinician Provided Cytology Information Source.............Cervix;Vulva No. of containers..01 ThinPrep Vial Age Algo ACOG Mar... FLAG LEGEND: L-Low Normal,H-High Normal,LL-Alert Low,HH-Alert High <-Panic Low,>-Panic High,A-Abnormal,AA-Critical Abnormal Performed at: 01 =[address] [address] Pam Moss MD, HPV APTIMAPositiveAbnormalNegativeNOMS HealthcareComment on above:This nucleic acid amplification test detects fourteen high- risk HPV types (16,18,31,33,35,39,45,51,52,56,58,59,66,68) without differentiation. HPV GENOTYPE 16NegativeNegativeNOMS HealthcareHPV GENOTYPE 18,45NegativeNegative NOMS HealthcareComment on above:Performed at: =[address] [id number] Customs Entry Clerk: Pam Moss MD, Phone: [phone] Performed at: [address] [id number] Customs Entry Clerk: Pam Moss MD, Phone: [phone] IGP, APTIMA HPV, RFX 16/18,45Note.NOMS HealthcareComment on above:TESTS RESULT FLAG UNITS REF RANGE LAB DIAGNOSIS: 02 NEGATIVE FOR INTRAEPITHELIAL LESION OR MALIGNANCY. Specimen adequacy: 02 Satisfactory for evaluation. Endocervical and/or squamous metaplastic cells (endocervical component) are present. Performed by: Beth Malik, Last Picker . 02 Note: Note 02 The Pap [...] system. HPV Genotype Reflex Note 02 Criteria met, see HPV Genotype results. FLAG LEGEND: L-Low Normal,H-High Normal,LL-Alert Low,HH-Alert High <-Panic Low,>-Panic High,A-Abnormal,AA-Critical Abnormal Performed at: [address] [address] Pma Moss MD, Interpretation and review of laboratory resultsAbnormalKindred Hospital BRUSH-SPATULA CERVIX VULVA CLINISYErlanger Bledsoe HospitalMM TOMOSYNTHESIS SCREENING BIon 16-51-0512[place] [address] Mammography Report Signed Patient: VIRAL MERINO MR#: [id number] : 1985 Acct:[id number] Age/Sex: 39 / F ADM Date: 08/26/24 Loc: MAMMO Attending Dr: Quinn Canseco D.O. Ordering Physician: Quinn Canseco D.O. Results: Date of Service: 08/26/24 Follow Up: Procedure(s): MM tomosynthesis screening BI Accession Number(s): [id number] cc: Mirian Ponce M.D.; Quinn Canseco D.O. Patient Name: VIRAL MERINO MR#: [id number] : 1985 Exam Date: 08/26/2024 Ordering Doctor: [...] prostate cancer at age 69. LOCATION: [facility] BREAST COMPOSITION: There are scattered areas of fibroglandular density. FINDINGS: DIAGNOSTIC CATEGORY 1--NEGATIVE. RIGHT BREAST: No significant suspicious finding. LEFT BREAST: No significant suspicious finding. RECOMMENDATIONS: ROUTINE MAMMOGRAM AND CLINICAL EVALUATION IN 12 MONTHS. PLEASE NOTE: A NORMAL MAMMOGRAM DOES NOT EXCLUDE THE POSSIBILITY OF BREAST CANCER. A CLINICALLY SUSPICIOUS PALPABLE LUMP SHOULD BE BIOPSIED. Dictated by: Arnol Mfcadden DO on 08/26/2024 at 16:31 Approved by: Arnol Mcfadden DO on 08/26/2024 at 16:33 Dictated By: Arnol Mcfadden M.D. Signed By: 08/26/24 1634 DD/ 1633 TD/TT: Convolute Tube Winder:TBHRadiology, Radiologist, MD - 08/26/2024 [place] [address] Mammography Report Signed Patient: VIRAL MERINO MR#: [id number] : 1985 Acct:[id number] Age/Sex: 39 / F ADM Date: 08/26/24 Loc: MAMMO Attending Dr: Quinn Canseco D.O. Ordering Physician: Quinn Canseco D.O. Results: Date of Service: 08/26/24 Follow Up: Procedure(s): MM tomosynthesis screening BI Accession Number(s): [id number] cc: Mirian Ponce M.D.; Quinn Canseco D.O. Patient Name: VIRAL MERINO MR#: [id number] : 1985 Exam Date: 08/26/2024 Ordering Doctor: [...] prostate cancer at age 69. LOCATION: [facility] BREAST COMPOSITION: There are scattered areas of [...] Signed By: 08/26/24 1634 DD/ 1633 TD/TT: Convolute Tube Winder: KAREN [facility] HospitalRadiology Study observation (narrative)[facility] TOMOSYNTHESIS SCREENING BIOrdered By: Radiologist Radiology on 12-44-9561FPMS [employer] Work Phone: all THYROID STIM HORMONEon 20-78-8409NKC Qn3.041 m[IU]/LNOMS HealthcareCLINISYNCNOMS HealthcareColposcopyon 18-78-2129GnyzwConcepcion Colin LPN 02/18/2024 11:12 AM Colposcopy Date/Time: [...] and paperwork completed: yes Educational handouts given: yesNOUpland Hills HealthHCG ( test) Ql (U)on 58-38-8322Mbkhvmvxevwdsw and review of laboratory resultsNormal NOMS HealthcarePreg Test, UrNegativeNOUpland Hills HealthLon 02-02-2024 LSpecimen: [id number] Received: 02/04/24 Status: DAWITSarah Bhatti Num: [id number] Spec Type: Surgical Subm Dr: Quinn Canseco Tissues: A Endocervix - Curettings (ECC) Procedures: HE/2, Gross/Micro L4 Age/ Patient Sex Location Account Attending Physician Viral Merino 38/F LABELL [id number] Quinn Canseco SPEC NUM: [id number] RECD: 02/04/24 STATUS: ARIES BHATTI NUM: [id number] ALESIA: 02/02/24- SUBM DR: Quinn Canseco ENTERED: 02/04/24 [facility] DR: Andrez,Lab SPEC TYPE: Surgical DEPT: ZHANNA RICHTER ENTERED BY: [id number] RECV BY: [id number] ORDERED: HE/2, Gross/Micro L4 ORDERED: HE/2, Gross/Micro L4 Pathological Diagnosis Endocervix, curettage: Fibrinopurulent exudate, nondiagnostic. Clinical Information ASCUS HPV positive Gross Description Specimen was received in formalin with the patient's name and ECC and consists of a single loera portion of soft tissue measuring 0.6 cm in greatest dimension. The specimen is entirely submitted in cassette A1. CPT Codes 18911 Specimen: [id number] Received: 02/04/24-1215 Status: ARIES Bhatti Num: [id number] Spec Type: Surgical Subm Dr: Quinn Canseco Tissues: A Endocervix - Curettings (ECC) Procedures: HE/Lena, Gross/Micro L4 Patient: Viral Merino [id number] (Continued) Signed (signature on file) Brannon Huff MD 02/10/[address] [place] [address] Physician GroupHIV AB/P24 AG WITH REFLEXon 94-11-8350XXJ AB/P24 AG SCREENNon-ReactiveNon [facility] HospitalComment on above:HIV-1/HIV-2 antibodies and HIV-1 p24 antigen were NOT detected. There is no laboratory evidence of HIV infection. HIV Negative Performed at: [address] [id number] Customs Entry Clerk: Christophe Moreno PhD, Phone: [phone] CLINISYErlanger Bledsoe HospitalHBV surface Ag IA Qlon 43-86-4240Ezpukmfww B Surface AntigenNegativeNegativeMercy Health Urbana HospitalComment on above: Performed at: [address] [id number] Director: Christophe Moreno PhD, Phone: [phone] at: [address] [id number] Director: Christophe Moreno PhD, Phone: [phone] 1 and HIV-2 antibody assay with HIV-1 p24 antigen detectionon 56-11-6000QEM 1+2 Ab+HIV1 p24 Ag IA QlNon-ReactiveNon Reactive [facility]rbana HospitalComment on above:HIV-1/HIV-2 antibodies and HIV-1 p24 antigen were NOTdetected. There is no laboratory evidence of HIV infection.HIV NegativePerformed at: [address] [id number] Director: Christophe Moreno PhD, Phone: [phone] Panel Informationon 08-06-7713UEV Quantitative ConfirmationNon Reactive titer NonRea<1:1FBlanchard Valley Health System Bluffton HospitalComment on above:Please Note: This test does not meet current guidelines forscreening and diagnosis of syphilis. This test isintended for following treatment response in patients beingtreated for syphilis infection. To screen for syphilisinfection, a reflex cascade that includes both RPR and atreponema-specific assay should be utilized, such asTreponema pallidum (Syphilis) Screening [place] (347921) orRapid Plasma Reagin (RPR) Test With Reflex to QuantitativeRPR and Confirmatory Treponema pallidum Antibodies(669221).Performed at: [facility] [employer] [id number] Director: Christophe Moreno PhD, Phone: [phone],APTIMA HPV,AGE GDLNon 06-56-8738IZO GDLN ACOG TESTINGNote.NOMS HealthcareComment on above:TESTS RESULT FLAG UNITS REF RANGE LAB Clinician Provided Cytology Information Source.............Cervix;Endocervix No. of containers..01 ThinPrep Vial Age Javier SANCHEZ Mar... FLAG LEGEND: L-Low Normal,H-High Normal,LL-Alert Low,HH-Alert High <-Panic Low,>-Panic High,A-Abnormal,AA-Critical Abnormal Performed at: 01 =[address] [address] Pam Moss MD, HPV APTIMAPositiveAbnormalNegativeNOMS HealthcareComment on above:This nucleic acid amplification test detects fourteen high- risk HPV types (16,18,31,33,35,39,45,51,52,56,58,59,66,68) without differentiation. Performed at: =[address] [id number] Customs Entry Clerk: Pam Moss MD, Phone: [phone] Performed at: [address] [id number] Customs Entry Clerk: Pam Moss MD, Phone: [phone] IGP, APTIMA HPV, RFX 16/18,45NoteAbnormal.NOMS HealthcareComment on above:TESTS RESULT FLAG UNITS REF RANGE LAB DIAGNOSIS: [A] 02 EPITHELIAL CELL ABNORMALITY. ATYPICAL SQUAMOUS CELLS OF UNDETERMINED SIGNIFICANCE (ASC-US). Specimen adequacy: 02 Satisfactory for evaluation. Endocervical and/or squamous metaplastic cells (endocervical component) are present. Performed by: 03 Luis Tinajero, Hvac Controls Technician ([facility]) Electronically si... Hanane Lares MD, Pathologist . 02 Pathologist [...] High,A-Abnormal,AA-Critical Abnormal Performed at: 02 [facility] [address] [address] Pam Moss MD, 03 KWCYT [facility] [place] [address] [address] [place] [address] Michael Smith MD, Interpretation and review of laboratory resultsAbnormalNOMS Healthcare BRUSH-SPATULA CERVIX ENDOCERVIX CLINISYNCNOMS HealthcareURETHRITIS/DISCHARGE PLUS VAGINITIS (HTRX)on 01-14-2024 ATOPOBIUM VAGINAE0.000NOMS HealthcareATOPOBIUM VAGINAENot detectedNOMS HealthcareBVAB 2,3 (BACTERIAL VAGINOSIS ASSOCIATED BACTERIA 2, 3); MOBILUNCUS SPP0.000NOMS HealthcareBVAB 2,3 (BACTERIAL VAGINOSIS ASSOCIATED BACTERIA 2, 3); MOBILUNCUS SPPNot detectedNOMS HealthcareCANDIDA ALBICANS, PARAPSILOSIS, TROPICALIS0.000NOMS HealthcareCANDIDA ALBICANS, PARAPSILOSIS, TROPICALISNot detectedNOMS HealthcareCANDIDA GLABRATA0.000NOMS HealthcareCANDIDA GLABRATANot detectedNOMS HealthcareCANDIDA KRUSEI0.000NOMS HealthcareCANDIDA KRUSEINot detectedNOMS HealthcareCHLAMYDIA TRACHOMATIS0.000NOMS HealthcareCHLAMYDIA TRACHOMATISNot detectedNOMS HealthcareGARDNERELLA VAGINALIS0.000N[facility] Healthcare GARDNERELLA VAGINALISNot detectedNOMS HealthcareMEGASPHAERA (TYPES 1, 2)0.000 NOMS HealthcareMEGASPHAERA (TYPES 1, 2)Not detectedNOMS HealthcareMYCOPLASMA GENITALIUM0.000NOMS HealthcareMYCOPLASMA GENITALIUMNot detectedNOMS Healthcare NEISSERIA GONORRHOEAE0.000NOMS HealthcareNEISSERIA GONORRHOEAENot detectedNOMS HealthcareTRICHOMONAS VAGINALIS0.000NOMS HealthcareTRICHOMONAS VAGINALISNot detectedNOMS HealthcareNOMS HealthcareHuman papilloma virus 16+18+31+33+35+39+45+51+52+56+58+59+66+68 DNA [Presence] in [place] 70-38-0657FKC 16+18+31+33+35+39+45+51+52+56+58+59+66+68 DNA Probe+sig amp Ql (Cvx)Positive AbnormalNegativeMercy Health Urbana HospitalComment on above:This nucleic acid amplification test detects fourteen high-risk HPV types (16,18,31,33,35,39,45,51,52,56,58,59,66,68)without differentiation.Performed at: =[address] [id number] Director: Pam Moss MD, Phone: [phone] at: [address] [id number] Director: Pam Moss MD, Phone: [phone] Panel Informationon 71-97-8779PKR High Risk Other CommentNote Abnormal.[facility]rbana HospitalComment on above:TESTS RESULT FLAG UNITS REF RANGE LAB DIAGNOSIS: [A] 02 EPITHELIAL CELL ABNORMALITY. ATYPICAL SQUAMOUS CELLS OF UNDETERMINED SIGNIFICANCE (ASC-US).Specimen adequacy: 02 Satisfactory for evaluation. Endocervical and/or squamous metaplastic cells (endocervical component) are present.Performed by: 03 Luis Tinajero, Hvac Controls Technician (ASCP)Electronically si... 02 Hanane Lares MD, Pathologist. 02Pathologist ICD10: 02 R87.610Note: Note 02The Pap smear is a screening test designed [...] Low,HH-Alert High <-Panic Low,>-Panic High,A-Abnormal,AA-Critical Abnormal Performed at:02 [facility] [address] [place] [address] Pam Moss MD, 03 [facility] LabcoPsychiatric Cyto Histo [address] [place] [phone] Michael Smith MD, Oazcegqtn Lab Test Patient [facility]rbana HospitalComment on above:TESTS RESULT FLAG UNITS REF RANGE LAB Clinician Provided Cytology Information Source.............Cervix;Endocervix No. of containers..01 ThinPrep VialAge Algo ACOG Mar... 30 FLAG LEGEND: L-Low Normal,H-High Normal,LL-Alert Low,HH-Alert High <-Panic Low,>-Panic High,A- Abnormal,AA-Critical Abnormal Performed a t:01 =[address] [facility] [address] Pam Moss MD, TCLU STIM IMMUNOGLOBULINon 62-62-4533Kosqwgy Sim Immunoglobulin<0.91Ddqgdn6.00-0.55The Memorial Health SystemComment on above: Performed By: #### I1VCXMM #### [facility] [address] [place] [address] Maxwell AllenT3, TOTAL (TRIIODOTHYRONINE)on 18-96-4450U2, DDFHT674 ng/dLNormal 71-180The [facility] Health SystemComment on above:Performed By: #### T4FAVAZ #### [facility] [address] [place] [address] Maxwell Hebert T4on 68-23-8000Fxgk T4 [Mass/Vol]0.96 ng/dLNormal0.76-1.46 The [facility] SystemComment on above:Performed By: #### FT4 #### [facility] [address] [place] [address] Dr. Maxwell Peraza4on 33-70-7952O5 [Mass/Vol]9.20 ug/dLNormal4.80-13.90The [facility] SystemComchelsea hospital on above:Performed By: #### T4, TSH #### [facility] [address] [place] [address] Dr. Maxwell WestHoruddy 97-32-5421LZN4.950 uIU/mLNormal0.358-3.740The [facility] Healthcare Systemment on above:Performed By: #### T4, TSH #### [facility] [address] [place] [address] Dr. Maxwell AllenTHYROID-STIMULATING IMMUNOGLOBULINon 51-36-2708Xpzmkhk Sim Immunoglobulin<0.77Atqxic0.00-0.55The [facility] on above: Performed By: #### TSHI #### [facility] [address] [place] [address] Dr. Maxwell AllenT3, TOTAL (TRIIODOTHYRONINE)on 01-22-1257Y2, FIYXA102 ng/dLNormal 71-180The [facility] on above:Performed By: #### K3WGILJ #### [facility] [address] [place] [address] Dr. Maxwell Peraza4 LABCORPon 41-21-7202Z1 [Mass/Vol]7.8 ug/dLNormal4.5-12.0The [facility] on above:Performed By: #### T4LC #### [facility] [facility] [address] [place] [address] Dr. Maxwell Hebert T4on 61-17-5540Zjjq T4 [Mass/Vol]0.85 ng/dLNormal0.76-1.46 The [facility] System[facility] on above:Performed By: #### FT4 #### [facility] [address] [place] [address] Dr. Maxwell Schafer 02-81-5428FOZ8.142 uIU/mLCritically high0.358-3.740[facility] on above:Performed By: #### [id number] #### [facility] [address] [place] [address] Dr. Maxwell Cheema ACOG PANEL 2: 30 to 65on 02-04-2022..NormalThe [facility] on above:Result Comment: Performed at: WBPerformed By: #### [id number] #### [facility] [address] [place] [address] Dr. Maxwell Jaimes Gdln ACOG Jbtyopl59-18BkqxcaNiiMercy Health Willard Hospital on above:Performed By: #### [id number] #### [facility] [address] [place] [address] Dr. Maxwell AllenDIAGNOSIS:CommentNoMercy Health Willard Hospital on above: Result Comment: NEGATIVE FOR INTRAEPITHELIAL LESION OR MALIGNANCY. Performed at: WBPerformed By: #### [id number] #### [facility] [address] [place] [address] Dr. Maxwell Pedersen AptimaNegativeNormalNegativeFulton County Health Center on above:Result Comment: This nucleic acid amplification test detects fourteen high-risk HPV types (16,18,31,33,35,39,45,51,52,56,58,59,66,68) without differentiation. Performed at: =GPerformed By: #### [id number] #### [facility] [address] [place] [address] Dr. Maxwell AllenMethodology:CommentVeterans Health Administration on above: Result Comment: This liquid based ThinPrep(R) pap test was screened with the use of an image guided system. Performed at: WBPerformed By: #### [id number] #### [facility] [address] [place] [address] Dr. Maxwell AllenNote:CommentVeterans Health Administration on above:Result Comment: The Pap smear is a screening test designed to aid in the detection of premalignant and malignant conditions of the uterine cervix. It is not a diagnostic procedure and should not be used as the sole means of detecting cervical cancer. Both false-positive and false-negative reports do occur. . Performed at: WBPerformed By: #### [id number] #### [facility] [address] [place] [address] Dr. Maxwell AllenPerformed by:CommentVeterans Health Administration on above: Result Comment: Loreto Hayden, Hvac Controls Technician (ASCP) Performed at: Performed By: #### [id number] #### [facility] [address] [place] [address] Dr. Maxwell AllenSpecimen adequacy:CommentVeterans Health Administration on above:Result Comment: Satisfactory for evaluation. Endocervical and/or squamous metaplastic cells (endocervical component) are present. Performed at: WBPerformed By: #### [id number] #### [facility] [address] [place] [address] Dr. [facility]WE[facility] AUTO DIFFon 11-66-4444ZILY #0.1 103/ulNormal0.0-0.1[facility]uffton HospitalComment on above:Performed By: #### [id number] #### [facility] [address] [place] [address] Dr. Maxwell AllenBasophils/100 WBC (Bld)0.5 %Normal0.2-2.0The [facility] Comment on above:Performed By: #### [id number] #### [facility] [address] [place] [address] Dr. Maxwell Penaloza #0.2 103/ulNormal0.0-0.7The [facility] SystemComchelsea hospital on above: Performed By: #### [id number] #### [facility] [address] [place] [address] Dr. Maxwell Garciaosinophils/100 WBC (Bld)1.3 %Normal0.9-7.0The [facility] Comment on above:Performed By: #### [id number] #### [facility] [address] [place] [address] Dr. Maxwell Garciarythrocyte distribution width (RBC) [Ratio]14.7 %Rruula28.0-15.0 The [facility] SystemComment on above:Performed By: #### [id number] #### [facility] [address] [place] [address] Dr. Maxwell AllenHematocrit (Bld) [Volume fraction]38.1 %Tvjwnb48.0-48.0The [facility] SystemComment on above:Performed By: #### [id number] #### [facility] [address] [place] [address] Dr. Maxwell AllenHemoglobin (Bld) [Mass/Vol]11.8 g/dLCritically low12.0-16.0The [facility] SystemComment on above:Performed By: #### [id number] #### [facility] [address] [place] [address] Dr. Maxwell Caldera #0.03 10e3/ulNormal0.00-0.03The [facility] SystemComment on above:Performed By: #### Q4MCEEG #### [facility] [address] [place] [address] Dr. Maxwell Caldera %0.3 %Normal0.0-0.5The [facility] SystemComment on above: Performed By: #### X2HOMKN #### [facility] [address] [place] [address] Dr. Maxwell DominiqueH #1.5 103/ulNormal1.2-3.8The [facility] SystemComment on above:Performed By: #### I7VZWGC #### [facility] [address] [place] [address] Dr. Maxwell Jackmphocytes/100 WBC (Bld)13.0 %Critically low20.5-60.0The [facility] SystemComment on above:Performed By: #### [id number] #### [facility] [address] [place] [address] Dr. Maxwell Hutchison DIFF REQNONormalThe [facility] Health SystemComment on above: Performed By: #### P7LAMGO #### [facility] [address] [place] [address] Dr. Maxwell Andersen (RBC) [Entitic mass]25.2 pgCritically low26.7-34.0The [facility] SystemComment on above:Performed By: #### [id number] #### [facility] [address] [place] [address] Dr. Maxwell Andersen (RBC) [Mass/Vol]31.0 g/qWUlkgfh99.9-35.2The [facility] SystemComment on above:Performed By: #### X3EJALO #### [facility] [address] [place] [address] Dr. Maxwell Andersen (RBC) [Entitic vol]81.2 qHSyasgo38.0-99.0The [facility] SystemComment on above:Performed By: #### U4JUBIU #### [facility] [address] [place] [address] Dr. Maxwell Villegas #1.0 103/ulCritically high0.3-0.8ThClermont County Hospital Comment on above:Performed By: #### S1OILXK #### [facility] [address] [place] [address] Dr. Maxwell Dangeloocytes/100 WBC (Bld)8.7 %Normal1.7-12.0[facility] Comment on above:Performed By: #### Q1WADSJ #### [facility] [address] [place] [address] Dr. Maxwell Patel #8.5 103/ulCritically high1.4-6.5The [facility] Comment on above:Performed By: #### R0KQYWM #### [facility] [address] [place] [address] Dr. Maxwell Corralesutrophils/100 WBC (Bld)76.2 %Critically high43.0-75.0The [facility]rez HospitalComment on above:Performed By: #### R3CURCQ #### [facility] [address] [place] [address] Dr. Maxwell Jc mean volume (Bld) [Entitic vol]9.6 fLNormal9.5-13.5The [facility] SystemComment on above:Performed By: #### D0XIOVC #### [facility] [address] [place] [address] Dr. Maxwell AllenPLT267 103/zjHarhwo483-150Icy [facility] SystemComment on above: Performed By: #### Y0FWYAD #### [facility] [address] [place] [address] Dr. Maxwell AllenRBC4.69 106/ulNormal4.20-5.40The [facility] SystemComment on above:Performed By: #### [id number] #### [facility] [address] [place] [address] Dr. Maxwell AllenWBC11.2 103/ulCritically high4.0-11.0The [facility] SystemComment on above:Performed By: #### S4OAUHE #### [facility] [address] [place] [address] Dr. Maxwell Garduno BLOODon 66-47-5042Jfwkomagjug examination of blood, cultureCulture Observations: NO GROWTH AT 5 DAYS.NormalThe [facility] Health SystemComment on above:Performed By: #### [id number] #### [facility] [address] [place] [address] Dr. Maxwell AllenPROF 14(COMP METB)on 80-87-5198Gwbywlk [Mass/Vol]3.5 g/dLNormal 3.5-5.0The [facility] Health SystemComment on above:Performed By: #### F1JEKOJ #### [facility] [address] [place] [address] Dr. Maxwell AllenAlbumin/Globulin [Mass ratio]0.9 {ratio}NormalThe [facility] Health SystemComment on above:Performed By: #### J1JTCCV #### [facility] [address] [place] [address] Dr. Maxwell Orosco [Catalytic activity/Vol]59 U/VPmpxvu64-288FxzBlanchard Valley Health System Bluffton HospitalComment on above:Performed By: #### I4WIEYC #### [facility] [address] [address] [address] Maxwell RothT [Catalytic activity/Vol]31 U/LNormal9-52[facility] Comment on above:Performed By: #### H0UUOSW #### [facility] [address] [place] [address] Dr. Maxwell Cartyon gap [Moles/Vol]10.6 mmol/LNormalBlanchard Valley [facility] Comment on above:Performed By: #### [id number] #### [facility] [address] [place] [address] Dr. Maxwell AllenAST [Catalytic activity/Vol]14 U/FDubjsg15-37Ikf [facility] SystemComment on above:Performed By: #### Q8AKVCF #### [facility] [address] [place] [address] Dr. Maxwell AllenBilirubin [Mass/Vol]0.5 mg/dLNormal0.2-1.3TMercy Health [facility] Comment on above:Performed By: #### D2RZVHT #### [facility] [address] [place] [address] Dr. Maxwell AllenCalcium [Mass/Vol]8.9 mg/dLNormal8.4-10.2[facility] Comment on above:Performed By: #### L2KAQAE #### [facility] [address] [place] [address] Dr. Maxwell AllenChloride [Moles/Vol]103 mmol/IKcslyd29-287UprBlanchard Valley Health System [facility] Comment on above:Performed By: #### K1HLTDG #### [facility] [address] [place] [address] Dr. Maxwell AllenCO2 [Moles/Vol]27.2 mmol/TLmsfye62.0-30.0[facility] Comment on above:Performed By: #### T2AXXML #### [facility] [address] [place] [address] Dr. Maxwell AllenCreatinine [Mass/Vol]0.72 mg/dLNormal0.52-1.04The [facility] SystemComment on above:Performed By: #### C4MMAYY #### [facility] [address] [address] [address] Maxwell GarciaGFR-AF BANGLADESHI>60Normal>=60The [facility] SystemComment on above:Performed By: #### R5ECQZB #### [facility] [address] [address] [address] Maxwell GarciaGFR-NON AF BANGLADESHI>60Normal>=60The [facility] SystemComment on above:Performed By: #### R4QEWFY #### [facility] [address] [address] [address] Maxwell AllenGlobulin (S) [Mass/Vol]3.9 g/dLNormalThe [facility] SystemComment on above:Performed By: #### H0WBNSN #### [facility] [address] [address] [address] Maxwell AllenGlucose [Mass/Vol]122 mg/dLCritically owph36-239Zei [facility] SystemComment on above:Performed By: #### S6JTUOM #### [facility] [address] [place] [address] Dr. Maxwell AllenPotassium [Moles/Vol]3.8 mmol/LNormal3.4-5.0The [facility] Comment on above:Performed By: #### O5UQOBG #### [facility] [address] [place] [address] Dr. Maxwell AllenProtein [Mass/Vol]7.4 g/dLNormal6.1-8.2The [facility] Comment on above:Performed By: #### F4VGZXI #### [facility] [address] [address] [address] Maxwell AllenSodium [Moles/Vol]137 mmol/SLkukgj929-224Dcl [facility] Comment on above:Performed By: #### I0DUTOC #### [facility] [address] [place] [address] Dr. Maxwell Agarwal nitrogen [Mass/Vol]10.0 mg/dLNormal7.0-17.0[facility] Bluff[facility] HospitalComment on above:Performed By: #### F1NNBWE #### [facility] [address] [place], [place] [address] Dr. Maxwell AllenUrea nitrogen/Creatinine [Mass ratio]13.9 mg/mgNormalThClermont County HospitalComment on above:Performed By: #### G3KVBAH #### [facility] [address] [address] [address] Maxwell Schafer 96-59-7208Syybyhovehe Qn2.88 m[IU]/LNormal0.44 - 3.98[facility] Hospital at WayneComment on above:Result Comment: TSH testing is performed using different testing methodology at [facility] than at other [facility]. Direct result comparisons should only be made within the same method. . Patients receiving more than 5 mg/day of biotin may have interference in test results. A sample should be taken no sooner than eight hours after previous dose. Contact [phone] for additional information.Performed By: #### TSH2 #### [facility] [id number] [place] [address] Vital Signs Date TimeVital SignValuePerforming IclbxbbiyClftnonq27-05-7097 14:06-0400Body mass index (BMI) [Ratio]37.27 kg/s0Mgegt [employer] Computing DO Work Phone: NOBoone Hospital CenterVltawuwdte88-95-2602 14:06-0400Body impwxn34.44 kgCore Ajith DO Work Phone: NOBoone Hospital CenterQkzgxlnjxx30-55-3818 14:06-0400Diastolic blood uelkjhpb17 mm[Hg]Quinn [employer] DO Work Phone: [facility] HospitalKuydrbbhsn19-90-0062 14:06-0400Systolic blood rpzqeezt464 mm[Hg][employer]inn [employer] Work Phone: noBoone Hospital CenterUwwyuhxrgu87-56-8933 15:00-0400Body mass index (BMI) [Ratio]37.02 kg/q9Lbsri Ajith DO Work Phone: [facility]red HospitalPvjfkzxfpj74-86-5648 15:00-0400Body feykng46.8 kg Quinn Ajith DO Work Phone: [facility]red HospitalPztndjnocs96-89-5414 15:00-0400Diastolic blood mtclavnt25 mm[Hg]Quinn Ajith DO Work Phone: [facility]red HospitalUburoabkvy53-25-9572 15:00-0400Systolic blood ereoabqa129 mm[Hg]Quinn Ajith DO Work Phone: [phone] [place], [place] [address]Twvazpctjg70-58-8787 09:58-0400Body mass index (BMI) [Ratio]36.56 kg/p3Fxxwp Ajith DO Work Phone: [phone] [place], [place] [address]Nhklzgclqa98-65-6647 09:58-0400Body awvjxn54.62 kgCorey Ajith DO Work Phone: [phone] [place], [place] [address]Janjwdtxfd23-09-4475 09:58-0400Diastolic blood dqwazhvr86 mm[Hg]Quinn Ajith DO Work Phone: [facility] HospitalRxclfbnwnq86-85-1571 09:58-0400Systolic blood ahkwerqe285 mm[Hg]Quinn Ajith DO Work Phone: Kindred HospitalOtutqyozbi81-03-3534 10:00-0400Body .48 cmMirian Ponce Other [facility] [employer] Other 08-16-2023 10:00-0400Body mass index (BMI) [Ratio] 36.03 kg/m5IljbqtMirian Ponce Other [facility] [employer] Other 08-16-2023 10:00-0400Body egsmww39.36 kgMirian Ponce Other [facility] [employer] Other 08-16-2023 10:00-0400Diastolic blood vsuaaqde10 mm[Hg] Mirian Ponce Other [place] [employer] Other 08-16-2023 10:00-0400Systolic blood loifftdb366 mm[Hg] Mirian Ponce Other [employer] Other Encounters Encounter DateEncounter TypeCare ProviderFacilityStart: 02-15-2025 End: 82-92-8758Unlepm flowsheetCorey Ajith DO Work Phone: [facility] OBGYNStart: 02-15-2025 End: 14-15-4323Gydond flowsheetCorey Ajith DO Work Phone: [facility] OBGYNStart: 02-15-2025 End: 00-72-7223Eylexkqea Result EncounterCorey Ajith DO Work Phone: [facility] External Department UnsolicitedStart: 02-15-2025 End: 20-92-7721Ssocwci encounter procedureCorey Ajith DO Work Phone: noms HealthcareStart: 02-15-2025 End: 68-86-0089Rnnvrfju preventive med est patient 40-64yrsCorey Ajith DO Work Phone: [facility] Anderz OBGYNComment on above:Well woman exam with routine gynecological exam; Encounter for screening mammogram for malignant neoplasm of breast; Thyroid disorderStart: 02-15-2025 End: 52-75-9628cposlxgvzcPUBCU FAZIONot AvailableStart: 08-26-2024 End: 46-98-1503Favykaerf Result EncounterCorey Ajith DO Work Phone: [facility] External Department UnsolicitedStart: 08-26-2024 End: 12-01-1060Uronzetdp Result EncounterCorey Ajith DO Work Phone: [facility] External Department UnsolicitedStart: 08-10-2024 End: 92-95-6869Hwrgsh outpatient visit 10 minutesCorey Ajith DO Work Phone: [facility] BCP OBComment on above:ASCUS with positive high risk HPV cervical; Breast cancer screening by mammogramStart: 08-10-2024 End: 40-40-1866hbpljtyhzuCGEMK FAZIONot AvailableStart: 03-13-2024 End: 98-78-0780Tezcsyzsq Result EncounterCorey Ajith DO Work Phone: n[facility] External Department UnsolicitedStart: 03-13-2024 End: 20-27-0404Mhznlvbmf Result EncounterCorey Ajith DO Work Phone: [facility] External Department UnsolicitedStart: 02-03-2024 End: 36-26-9656inbxonxetiEpbiv [facility]aziBarn[facility] Work Phone: Start: 02-03-2024 End: 18-39-5851Citdesht ReferredDO Quinn Ajith Work Phone: [facility] Cas[facility] HospStart: 02-02-2024 End: 82-78-4483Igeftzm encounter procedureCorey Ajith DO Work Phone: n[facility] BCP OBComment on above:ASCUS with positive high risk HPV cervicalStart: 45-69-9792Eyd-patient / Non-visitDO Quinn Ajith Work Phone: [facility] GroupAst[facility] Work Phone: Start: 01-27-2024 End: 56-43-4274Kdejqatim Result EncounterCorey Ajith DO Work Phone: [facility] External Department UnsolicitedStart: 01-27-2024 End: 91-41-0903Evyqbqywl Result EncounterCorey Ajith DO Work Phone: [facility] External Department UnsolicitedStart: 01-13-2024 End: 25-27-4954Saxfyb flowsheetCorey Ajith DO Work Phone: [facility] BCP OBStart: 01-13-2024 End: 25-70-9612Hsdrvi flowsheetCorey Ajith DO Work Phone: [facility] BCP OBStart: 01-13-2024 End: 24-45-2440Hvbvabycg Result EncounterCorephillip Dietricho DO Work Phone: [facility] External Department UnsolicitedStart: 01-13-2024 End: 32-27-5270Ycqusnhc Result EncounterCorephillip Dietricho DO Work Phone: [facility] External Department UnsolicitedStart: 01-13-2024 End: 41-57-2330Tfwnmva encounter procedureCorephillip Dietricho DO Work Phone: [facility] Work Phone: Start: 01-13-2024 End: 63-71-9835Oodquss encounter statusCorephillip Canseco DO Work Phone: noms HealthcareStart: 01-13-2024 End: 94-89-1166Ksyudveu preventive med est patient 18-39 yrsCorephillip Canseco DO Work Phone: [facility] BCP OBComment on above:Well woman exam with routine gynecological exam; Breast cancer screening by mammogram; Abnormal TSH; STD exposure; Sexually transmitted disease exposure; Wellness examination; control counselingStart: 01-25-9397Rnj-patient / Non-visitDO Quinn Canseco Work Phone: [facility] Professional [employer] Work Phone: Start: 01-30-2023 End: 91-46-6397tdfmtykwjfYwrfhs Kris Other [facility] [employer] Other Start: 01-53-6982Pimxvblhs encounterMarcia KrisMcCullough-Hyde Memorial Hospital ClinicStart: 45-46-8953Ukyhsvdqq for general adult medical examination without abnormal findingsMarcia KrisMcCullough-Hyde Memorial Hospital ClinicStart: 16-64-1490Gcozirbxw for gynecological examination (general) (routine) without abnormal findingsMarcia KrisMcCullough-Hyde Memorial Hospital ClinicStart: 44-62-5853Zdlpptys preventive med est patient 18-39 yrsMarcia KrisFPG [facility] Medical ClinicStart: 01-08-2023 End: 75-13-6473nfxdvvxpfbVzazhw Braun Other noYozons [employer] Other Start: 01-08-2023 End: 59-60-0364Ecacbqug ReferredMD Mirian Ponce Work Phone: [facility] [place] Work Phone: Start: 75-48-6409dooeevzhzwRxml L SchwabFacility:FT FM BellevueStart: 73-71-8589oggdfetyaiEtse SchwabFacility:FT [facility] BellevueStart: 03-18-2022 End: 14-69-4101xhgqetwtncRG NISHA JEEVANKFacility:Q4Vxuol: 02-08-2022 End: 20-11-8380lcwrjohyikOP NISHA JHAELYSIAKFacility:B5Ifvir: 01-29-2022 End: 99-43-7080cjzanvgmomAZ NISHA CHEWJesicaFacility:S0Xsoix: 01-29-2022 Gynecological examination normalMirian Ponce Other [facility] [employer] Other Start: 04-08-2021 End: 48-00-6219nafnyrabilUN MIRIAN PONCEFacility:M2Aljss: 62-06-2859Syxfn health examinationMirian Ponce Other [facility]aint [facility] [employer] Other Start: 22-08-6952Gdvufis encounter procedureBrooke Vala RossiFacility:[facility] Travis WareerStart: 90-81-4829Svncekr encounter procedureBrooke Vala RossiFacility:[facility] Travis WareerStart: 06-20-2017 AmbulatoryBrooke Vala RossiFacility:[facility] [place] Procedures DateProcedureProcedure DetailPerforming ClinicianStart: 97-96-7931KIA,APTIMA HPV,AGE GDLNCorey Ajith DO Work Phone: Start: 47-18-4124EU TOMOSYNTHESIS SCREENING BICorey Scale Computing DO Work Phone: Start: 64-73-6809CFJ THYROID STIM HORMONECorey [employer] Work Phone: Start: 36-79-1697ZTLIMJIBFUObbql Scale Computing DO Work Phone: Start: 33-31-9628Jqpuj test visual color cmprsn methsCorey [employer] Work Phone: Start: 31-63-1428HGO AB/P24 AG WITH REFLEXCorey [employer] Work Phone: Start: 08-11-9298PKA,APTIMA HPV,AGE GDLNCorey [employer] Work Phone: Start: 70-18-6503ELMVZSISHF/DISCHARGE PLUS VAGINITIS (HTRX)[employer]inn [employer] Work Phone: Start: 39-47-2986Rpbvlrxzdyoby care educationMirian Ponce Other End: 44-80-3492Uvaaugucy screeningMaidacichalino Ponce Other CounselingMirian Ponce Other End: 94-45-7959Kmjtyykbpr screeningMirian Ponce Other Family planning educationMirian Ponce Other End: 82-12-5449Zdafjzhmp visitMirian Ponce Other Plan of Treatment DateCare ActivityDetailAuthorStart: 02-15-2025 End: 06-43-9690QH Breast - bilateral ScreeningBilateral screening mammogram Imaging Routine Well woman exam with routine gynecological exam Encounter for screening mammogram for malignant neoplasm of breast Expected: 02/15/2025 (Approximate), Expires: 04/17/2026[facility] Work Phone: comment on above:Expected: 02/15/2025 (Approximate), Expires: 04/17/2026Start: 02-15-2025 End: 78-35-2052Aixcrcw encounter procedureNOMS BCP OBComment on above:Arrived Start: 08-10-2024 End: 82-25-9470ME Breast - bilateral ScreeningBilateral screening mammogram Imaging Routine Breast cancer screening by mammogram Expected: 08/10/2024 (Approximate), Expires: 10/10/2025[facility] Work Phone: comment on above:Expected: 08/10/2024 (Approximate), Expires: 10/10/2025Start: 08-10-2024 End: 36-54-6165Nebmqxz encounter qovmxrngo12/18/2025 2:00 PM EDT Procedure Visit [facility] [address] [place] [phone] Quinn Canseco, DO [address] [place], [place] [id number] [facility] OBStart: 02-02-2024 End: 50-62-3130Zpwmotj encounter flzkodtga97/09/2024 2:30 PM EDT Procedure Visit [facility] [address] [place] [phone] Quinn Canseco, DO [address] [place], [place] [id number] [facility] OBStart: 02-02-2024 End: 72-29-3936FellwpfpynZiaxdsksqt Procedures Routine ASCUS with positive high risk HPV cervical Expected: 02/02/2024 (Approximate), Expires: 02/01/2025[facility] Work Phone: Comment on above:Expected: 02/02/2024 (Approximate), Expires: 02/01/2025Start: 01-13-2024 End: 39-67-2560Nuquk 1996 panel - Serum or PlasmaLipid panel Lab Routine Wellness examination Expected: 01/13/2024 (Approximate), Expires: 01/12/2025NON[facility] HealthcareComment on above:Expected: 01/13/2024 (Approximate), Expires: 01/12/2025Start: 01-13-2024 End: 87-76-4192BN Breast - bilateral ScreeningBilateral screening mammogram Imaging Routine Breast cancer screening by mammogram Expected: 01/13/2024 (Approximate), Expires: 03/14/2025[facility] HealthcareComment on above:Expected: 01/13/2024 (Approximate), Expires: 03/14/2025Start: 01-13-2024 End: 23-26-0407Lziyoqh encounter mtkeqeblk45/20/2024 10:00 AM EDT Office Visit [facility] [address] [phone] Quinn Canseco, DO [address] [place] [address] ArrivedMOUNTAIN COMMUNITY MEDICAL SERVICES OBComment on above:ArrivedStart: 86-02-8513RfzytptbiMercy Health Urbana HospitalCBC W Auto Differential panel - Blood CBC and differential Lab Routine Wellness examination Ordered: 01/13/2024[facility] HealthcareComment on above:Ordered: 01/13/2024HLAMYDIA TRACHOMATIS (GENITO/STI) CHLAMYDIA TRACHOMATIS (GENITO/STI) Lab Routine STD exposure Ordered: 01/13/2024 [facility] HealthcareComment on above:Ordered: 01/13/2024omprehensive metabolic 2000 panel - Serum or PlasmaComprehensive metabolic panel Lab Routine Wellness examination Ordered: 01/13/2024[facility] HealthcareComment on above:Ordered: 01/13/2024ytology Cervical or vaginal smear or scraping studyPap Smear Pathology and Cytology Routine Well woman exam with routine gynecological exam Ordered: 01/13/2024[facility] Healthcare Work Phone: comment on above:Ordered: 01/13/2024Hemoglobin A1c/Hemoglobin.total in BloodHemoglobin A1c Lab Routine Wellness examination Ordered: 01/13/2024[facility] HealthcareComment on above:Ordered: 01/13/2024Hepatitis B virus surface Ag [Presence] in Serum or Plasma by ImmunoassayHepatitis B surface antigen Lab Routine Sexually transmitted disease exposure Ordered: 01/13/2024[facility] HealthcareComment on above:Ordered: 01/13/2024HIV-1/HIV-2 antigen/antibody combination immunoassayHIV-1 and HIV-2 antibodies Lab Routine Sexually transmitted disease exposure Ordered: 01/13/2024[facility] HealthcareComment on above:Ordered: 01/13/2024Human papilloma virus 16+18+31+33+35+39+45+51+52+56+58+59+66+68 DNA [Presence] in Cervix by Probe with signal amplificationMercy Health Urbana HospitalHuman papilloma virus DNA [Presence] in Unspecified specimen by Probe with amplificationHPV DNA probe, amplified Microbiology Routine Well woman exam with routine gynecological exam Ordered: 01/13/2024[facility] HealthcareComment on above:Ordered: 01/13/2024Neisseria gonorrhoeae DNA [Presence] in Unspecified specimen by ELOISE with probe detection Neisseria gonorrhea DNA probe, direct Lab Routine STD exposure Ordered: 01/13/2024[facility] HealthcareComment on above:Ordered: 01/13/2024eagin Ab [Presence] in Serum by RPRRPR Lab Routine Sexually transmitted disease exposure Ordered: 01/13/2024[facility] HealthcareComment on above:Ordered: 01/13/2024 SURESWAB(R) ADVANCED VAGINITIS PLUS, TMASURESWAB(R) ADVANCED VAGINITIS PLUS, TMA Pathology and Cytology Routine STD exposure Ordered: 01/13/2024[facility] Healthcare Comment on above:Ordered: 01/13/2024THIN PREP TIS PAP AND HR HPV DNATHIN PREP TIS PAP AND HR HPV DNA Pathology and Cytology Routine ASCUS with positive high risk HPV cervical Ordered: 08/10/2024[facility] HealthcareComment on above:Ordered: 08/10/2024THIN PREP TIS PAP AND HR HPV DNATHIN PREP TIS PAP AND HR HPV DNA Pathology and Cytology Routine Well woman exam with routine gynecological exam Ordered: 02/15/2025[facility] HealthcareComment on above:Ordered: 02/15/2025 Thyrotropin [Units/volume] in Serum or PlasmaTSH Lab Routine Abnormal TSH Ordered: 01/13/2024[facility] HealthcareComment on above:Ordered: 01/13/2024 Thyrotropin [Units/volume] in Serum or PlasmaTSH Lab Routine Thyroid disorder Ordered: 02/15/2025[facility] HealthcareComment on above:Ordered: 02/15/2025Thyroxine (T4) free [Mass/volume] in Serum or PlasmaT4, free Lab Routine Thyroid disorder Ordered: 02/15/2025[facility] HealthcareComment on above:Ordered: 02/15/2025 Payers DatePayer CategoryPayerPolicy [id number] Cross Blue ShieldBCBS [id number] [facility] [id number] 2022-Present [phone] [address] [place] [address] [id number] [id number] 2.1.594430.[id number] 2..1.032911.3.57[id number] 2..1.551950.3.57[id number] 2..1.291266.3.57[id number] 2..1.774698.3.57[id number] 2.16.840.1.096364.3.57[id number] 2.16.840.1.310996.3.57[id number] 2..840.1.682707.3.57[id number] 2..840.1.78[id number] 2..840.1.428168.3.579.2.531 Social History DateTypeDetailFacilitySex Assigned At [facility] CounterTack Other Start: 33-87-0870Mpx Assigned At [facility], IncTobacc smoking status NHISTobacco smoking consumption unknownKindred HospitalStart: 52-21-3585Quv assigned at [facility] hospitalNot on fileKindred Hospital Clinical Notes 01-08-2023 to 02-15-2025 Note Date & FubxYhisNlobhwdr04-81-0780 History of Present illness Narrative* Jordana Glover, VINNIE - 02/15/2025 1:10 PM EDT Reason for Appointment: Patient ID: Viral Merino [...] nursing note reviewed. Exam conducted with a credit investigator present. Vitals: Estimated body mass index is [...] them. Patient can also view results via [employer]. I reinforced importance of condom use for [...] of: Quinn Canseco DO documented in this encounterKindred HospitalSuabiqdclf88-96-3870 History of Present illness Narrative* Jordana Glover LPN - 08/10/2024 2:00 PM EDT Reason for Appointment: Patient ID: Viral Merino [...] nursing note reviewed. Exam conducted with a credit investigator present. Vitals: Estimated body mass index is [...] of: Quinn Canseco DO documented in this encounterKindred HospitalTdciunjcek16-34-3470 History of Present illness Narrative* Concepcion Colin LPN - 02/02/2024 2:30 PM EDTAssociated Order(s): Colposcopy Post-Procedure Diagnose(s): ASCUS with positive [...] nursing note reviewed. Exam conducted with a credit investigator present. Vitals: Estimated body mass index is 37.02 kg/m as calculated from the following: Height as of 09/17/23: 5' 3 . Weight as of this [...] months for Repeat Pap. Documented by Concepcion Coiln LPN on behalf of: Quinn Canseco DO documented in this encounterKindred HospitalWrzeljoafi40-12-5023 History of Present illness Narrative* Jordana Glover LPN - 01/13/2024 10:00 AM EDT Reason for Appointment: Patient ID: Viral Merino is a 38 y.o. female who presents for [facility] Visit Patient presents today for Annual [...] nursing note reviewed. Exam conducted with a credit investigator present. Vitals: Estimated body mass index is [...] Jordana Glover LPN on behalf of: Quinn Ajith, DO documented in this encounterKindred HospitalPsmnthknup33-57-4104 Evaluation note* Encounter Date Diagnosis Assessment Notes Treatment Notes Treatment Clinical Notes Dec, Encounter for gyneco logical examination without abnormal finding (ICD-10 - Z01.419) Clinical impressions discussed. Monthly SBE advised along with yearly mammograms. Colon and osteoporosis screening reviewed and ordered if indicated (see preventative tab below). I will contact pt. with the results of her pap testing and arrange follow up based on the results. All questions answered to her satisfaction and patient sent home stable Dec,Screening for STD (sexually transmitted disease) (ICD-10 - Z11.3) Dec,Wellness examination (ICD-10 - Z00.00) [facility] Other Evaluation noteNo assessment information available [facility] Work Phone: Evaluation noteNo InformationNort CounterTack Other Evaluation note* Diagnosis Well woman exam [...] Description Date Medical History Adult hypothyroidism Medical HistoryHPV in femaleMedical HistoryBronchitisMedical HistoryAsthma, intermittent with acute exacerbationMedical HistoryAcute URISurgical History C-SECTIONHospitalization HistorySEE SURGICAL HX [facility] Other Summary Purpose Family History Relationship Condition Age at Onset Recorded Date/T stacy father Diabetes mellitus Unknown Seizure disorderUnknownmotherHypertensionUnknown Advance Directives Advance Directive Response Recorded Date/ Time Advance Directives No January 14, 2023 8:48am Additional Source Comments INFORMATION SOURCE (unrecogn ized section and content) DATE CREATED AUTHOR 11/17/2017 [facility] DATE CREATED AUTHOR AUTHOR'S ORGANIZ ATION 07/06/2018 [facility] DATE CREATED AUTHOR AUTHOR'S ORGANIZ ATION 03/24/2022 [facility] DATE CREATED AUTHOR AUTHOR'S ORGANIZ ATION 12/11/2022 [facility] DATE CREATED AUTHOR AUTHOR'S ORGANIZ ATION 02/12/2024 [facility] DATE CREATED AUTHOR AUTHOR'S ORGANIZ ATION 02/16/2025 [facility] EPIC REASON FOR VISIT (unrecogniz ed section and content) ReasonCommentsWell Women VisitReasonCommentsAbnormal Pap SmearPt present today for a colposcopy visit. Pt had an abnormal pap smear on 01/13/2024. (ASCUS HPV+) ReasonCommentsAbnormal Pap SmearReasonCommentsGynecologic Exam Care Teams (unrecognized sec tion and content) Team Status: Inactive Member Role Status Dates Mirian Ponce MD Attending Provider Active Team Status: Active Member Role Status Dates Mirian Ponce MD Primary Care Provider Active Start: January 13, 2024 Qiunn Canseco DOAttkatharine ProviderActiveStart: January 13, 2024 Team Status: Active Member Role Status Dates Mirian Ponce MD Primary Care Provider Active Start: January 27, 2024 Cierra Islas ProviderActiveStart: January 27, 2024 Team Status: Inactive Member [...] BE BASED ON THE PRIMARY CLINICAL RECORDS. [employer] provides no warranty or guarantee of the accuracy or completeness of information in this document.
[2025-03-25 08:34] LABS: Thyroid Stimulating Hormone 5.640 uIU/mL (0.358-3.740)
== END 2025-03-25 07:49 | disposition home or self-care (01) ==
LOC: LAB 07:48
PROVIDERS: PCP Family Medicine; Visit Provider Obstetrics & Gynecology
DX: E07.9 Disorder of thyroid, unspecified (principal)
CPT/HCPCS: 36415; 84439; 84443

== ENCOUNTER 2025-05-13 07:37 | Outpatient (OUT) | payer BC, SELFPAY ==
--- OUTSIDE RECORDS SUMMARY | 2025-05-13 07:42 | XMS_ITS | Encounter Summary ---
Author Organization [facility] Address [address] [place] [address] Care Team Providers Care Peoplesoft Administrator Name Role Phone Unavailable Primary Care Provider Unavailabl e Encounter Details DateTypeDechi st. [facility]cent rehabilitation hospitalCare Team (Latest Contact Info)Reedllgmgyu19/16/2025Telephone NOMJamaal GARRETT [address] [place] [address] Jordana Glover LPN Social History Tobacco UseTypesPacks/DayYears UsedDateSmoking Tobacco: Never Assessed CommentsUnknownSex and Gender InformationValueDate RecordedSex Assigned at Not on fileLegal SycJhcgtf84/15/2023 7:29 PM EDTGender IdentityNot on fileSexual OrientationNot on filedocumented as of this encounter Miscellaneous Notes * Telephone Encounter - Jordana Glover LPN - 05/10/2025 11:25 AM EST Pt needed TSH and free t4 rechecked after starting synthroid- orders faxed to [facility] documented in this encounter Plan of Treatment DateTypeDechi st. [facility]cent rehabilitation hospitalCare Team (Latest Contact Info)Psfzetmhxjs58/30/2026 2:40 PM EDTProcedure Visit NOMJamaal GARRETT [address] [place] [address] Los Canseco DO [address] [place], [facility] NameTypePriorityAssociated DiagnosesOrder ScheduleT4, freeLabRoutine Thyroid disorder Expected: 05/10/2025 (Approximate), Expires: 05/10/2026TSHLabRoutine Thyroid disorder Expected: 05/10/2025 (Approximate), Expires: 05/10/2026documented as of this encounter Visit Diagnoses Diagnosis Thyroid disorder Unspecified disorder of thyroid documented in this encounter
--- OUTSIDE RECORDS SUMMARY | 2025-05-13 07:42 | XMS_ITS | Clinical Summary ---
Author Organization [facility] tem Address [facility] [place] [address] Care Team Providers Care Janitorial Supervisor Name Role Phone Mirian Guido MD Primary Care Provider [phone] Social History Tobacco UseTypesPacks/DayYears UsedDateSmoking Tobacco: Never AssessedChildcare AnswerDate BgkpkxiuXpmvwtucxQcuailf45/12/2019EmploymentAnswerDate Recorded AvuijmkoenUjwvdme53/12/2019Purpose - LifeAnswerDate RecordedPurpose and direction in qmopUagnclo04/11/2021CommentsUnknownSex and Gender InformationValueDate RecordedSex Assigned at BirthNot on fileLegal SexFemale 12/29/2014 12:09 PM EDTGender IdentityNot on fileSexual OrientationNot on file Plan of Treatment Health MaintenanceDue DateLast DoneCommentsDepression Lskjxgilp97/16/1997Tobacco Ndebtacjf06/16/1997Adult BMI Iyevjtuyi60/16/2003DTaP,Tdap and Td Vaccines (1 - Tdap)08/09/2003Pap Smear2005Influenza Qlopklv0201/24/2025 Medical Devices Not on file Insurance Care Teams Team MemberRelationshipSpecialtyStart DateEnd Date Mirian Guido MD [address] [place] [address] [facility]12/05/17
--- OUTSIDE RECORDS SUMMARY | 2025-05-13 07:42 | XMS_ITS | Clinical Summary ---
Author Organization [facility] Address [address] [place] [address] Phone Care Team Providers Care Product Development Ecologist Name Role Phone Mirian Guido MD Primary Care Provider [phone] Social History Tobacco UseTypesPacks/DayYears UsedDateSmoking Tobacco: Never Assessed CommentsUnknownSex and Gender InformationValueDate RecordedSex Assigned at Not on fileLegal ZbdBqsrme67/25/2022 10:57 AM ESTGender IdentityNot on file Sexual OrientationNot on file Plan of Treatment Not on file Care Teams Team MemberRelationshipSpecialtyStart DateEnd Date Mirian Guido MD [address] [place], [place] [id number] PCP - General06/02/17
--- OUTSIDE RECORDS SUMMARY | 2025-05-13 07:42 | XMS_ITS | Clinical Summary ---
Author Organization [facility] Address [address] [facility] [place] [address] Care Team Providers Care Drag Down Name Role Phone Unavailable Primary Care Provider [...] high risk HPV cervical 02/02/2024 Encounters DateTypeDepartmentCare HyeiNpvtwqzwltz29/16/2025Telephone NOMS Andrez GARRETT [address] [place] [address] Jordana Glover LPN 5Clinisync Result Encounter [facility] External Department Unsolicited Los Canseco DO 03/03/2025Orders Only [facility] Andrez GARRETT [address] [place] [address] Seema Bran LPN 02/15/2025 1:10 PM EDTOffice Visit [facility] Andrez GARRETT [address] [place] [address] Los Canseco DO Well woman exam with routine gynecological exam; Encounter for screening mammogram for malignant neoplasm of breast; Thyroid /23/2025Clinisync Result Encounter [facility] External Department Unsolicited Los Canseco DO 5Bamboo flowsheet [facility] Andrez GARRETT [address] [place] [address] Los Canseco DO from Last 3 Months Social History Tobacco UseTypesPacks/DayYears UsedDateSmoking Tobacco: Never Assessed CommentsUnknownSex and Gender InformationValueDate RecordedSex Assigned at Not on fileLegal ZivVffjzc69/15/2023 7:29 PM EDTGender IdentityNot on fileSexual OrientationNot on file Last Filed Vital Signs Vital SignReadingTime TakenCommentsBlood Onyyhpvb624/76008/10/2024 2:06 PM EDT Pulse--Temperature--Respiratory Rate--Oxygen Saturation--Inhaled Oxygen Concentration--Jfdsps31.4 kg (210 lb 6.4 oz)08/10/2024 2:06 PM MJLBryetc477 cm (5' 3 )09/17/2022 12:00 PM EDTBody Mass Index37.27009/17/2022 12:00 PM EDT Plan of Treatment DateTypeDepartmentCare Team (Latest Contact Info)Zmcdspqnqci78/30/2026 2:40 PM EDTProcedure Visit [facility] Andrez [facility] [address] [place] [address] Los Canseco DO [address] [place] [address] Procedures Procedure NamePriorityDate/TimeAssociated DiagnosisCommentsALL THYROXINE (T4) SQCUKvkmpxj79/31/2025 7:56 AM EDT ALL THYROID STIM PPMMTJZCzaalgn44/31/2025 7:56 AM EDT IGP,APTIMA HPV,AGE FOUWXlofdpi07/23/2025 1:15 PM EDT PAP GSDTFVctemgv99/23/2025 12:00 AM EDTfrom Last 3 Months Results * ALL THYROXINE (T4) FREE (03/25/2025 7:56 AM EDT)ComponentValueRef RangeTest MethodAnalysis TimePerformed AtPathologist SignatureFREE T41.010.76 - 1.46 ng/dLTBHSpecimen (Source)Anatomical Location / LateralityCollection Method / VolumeCollection TimeReceived Time03/25/2025 7:56 AM EDT1 7:59 AM EDT Narrative CLINISYNC - 03/25/2025 9:38 AM EDT Authorizing ProviderResult TypeResult StatusCorey Ajith DOCLINISYNCFinal Result Performing OrganizationAddWarren General Hospitalty/State/ZIP CodePhone Number MILO TB * (ABNORMAL) ALL THYROID STIM HORMONE (03/25/2025 7:56 AM EDT)ComponentValueRef RangeTest MethodAnalysis TimePerformed AtPathologist SignatureTHYROID STIMULATING HORMONE5.640(H)0.358 - 3.740 uIU/mLTBHSpecimen (Source)Anatomical Location / LateralityCollection Method / VolumeCollection TimeReceived Time 03/25/2025 7:56 AM EDT1 7:59 AM EDT Narrative CLINISYND - 03/25/2025 8:36 AM EDT Authorizing ProviderResult TypeResult StatusCorey Ajith DOCLINISYNCFinal Result Performing OrganizationAddWarren General Hospitalty/State/ZIP CodePhone Number MILO TB * (ABNORMAL) IGP,APTIMA HPV,AGE GDLN (02/15/2025 1:15 [...] at: 01 =G ?[facility] ?? [address] [place] ??[phone] ?? Pam Moss MD, IGP, APTIMA HPV, RFX 16/18,45Note.TBHComment: ?? TESTS ? RESULT ??FLAG ??UNITS ?REF RANGE ??LAB DIAGNOSIS: ?02 ?? NEGATIVE FOR INTRAEPITHELIAL LESION OR MALIGNANCY. Specimen adequacy: ?02 ?? Satisfactory for evaluation. ??Endocervical and/or squamous metaplastic ?? cells (endocervical component) are present. Performed by: ? 02 ?? Cari Malik, Special Education Curriculum Specialist . ? 02 Note: ? Note ?02 [...] Low,>-Panic High,A-Abnormal,AA-Critical Abnormal Performed at: 02 WB ?[facility] ?? [address] [facility], [place] ??[phone] ?? Pam Moss MD, HPV APTIMAPositive(A)NegativeTBHComment: This nucleic acid amplification test detects fourteen high- risk HPV types (16,18,31,33,35,39,45,51,52,56,58,59,66,68) without differentiation. HPV GENOTYPE 16NegativeNegativeTBHHPV GENOTYPE 18,45NegativeNegativeTBHComment: Performed at: ??=G - [facility] [address], [place] ??[id number] Marketing Analytics Manager: Pam Moss MD, Phone: ??[phone] Performed at: ??WB - [facility] [address] ??[id number] Marketing Analytics Manager: Pam Moss MD, Phone: ??[phone] Specimen (Source)Anatomical Location / LateralityCollection Method / Volume Collection TimeReceived Time02/15/2025 1:15 PM EDT02/15/2025 7:34 PM EDT Narrative CLINISYNC - 02/22/2025 9:08 PM EDT BRUSH-SPATULA CERVIX VULVA Authorizing ProviderResult TypeResult StatusCorey Ajith DOLAB BLOOD ORDERABLES Final ResultPerforming OrganizationAddressCity/State/ZIP CodePhone Number [facility] * (ABNORMAL) Pap Smear (02/15/2025 12:00 AM EDT)Specimen (Source)Anatomical Location / LateralityCollection Method / VolumeCollection TimeReceived Time SwabCervical swab / Unknown Narrative Authorizing ProviderResult TypeResult StatusFazio Nurse [facility] ObLAB CYTOLOGY ORDERABLESFinal ResultPerforming OrganizationAddressCity/State/ZIP CodePhone Number EXTERNAL LAB from Last 3 Months Insurance
[2025-05-13 08:31] LABS: Thyroid Stimulating Hormone 1.887 uIU/mL (0.358-3.740)
== END 2025-05-13 07:38 | disposition home or self-care (01) ==
LOC: LAB 07:39
PROVIDERS: PCP Family Medicine; Visit Provider Obstetrics & Gynecology
DX: E07.9 Disorder of thyroid, unspecified (principal)
CPT/HCPCS: 36415; 84439; 84443